=== PATIENT | female | born 1995 | race Caucasian/White ===

== ENCOUNTER → 2016-11-03 | Outpatient (CLI) | payer MEDICARE, MEDICAID ==
[~2016-11-03] MED LIST: ACHD5005 PO; AMOX-355 PO; AZTH250C; CEFP500T4 PO; CEPH500C PO; CEPH500T PO; CETI10CA PO; CHL25T; CLN.1T; CLON1TAB36; D-ME473S42; DEPAKOTE 125 MG; DIASTAT; DIAZ2.5K RC; DIVA125C3; DIVA125T2 PO; DIVA250T2 PO; FLAX SEED OIL; FLX20C; GUAN4TAB2 PO; LACO100T2 PO; LAMO100T69; LORTAB ELIXIR; MAGN500C15 PO; MAGNESIUM; MELA1TAB11 PO; METO-354 PO; MUPI15CR11; NF-ADXR10C; NITR-65 PO; ONDAN4ODT PO; ONDN4T PO; PEGANONE; PRM25T PO; QTP25T; QUET25TA; RANI-10 PO; RSP1T; RUFI400T PO; SERT50TA; SULF-222; SULF1TAB38 PO; TERB250T10 PO; TOPI50TA37 PO; TRAZ-28 PO; TRAZ150T42 PO; TRAZ50TA67; [UNRECOGNIZED DRUG - CODE] PO
[2016-11-03 11:49] LABS: BASOPHILS % (AUTO) 0 % (0-10); EOSINOPHILS # (AUTO) 0.1 10^3/uL (0.0-0.3); EOSINOPHILS % (AUTO) 1 % (0-10); LYMPHOCYTES # (AUTO) 3.3 X 10^3 (1.0-4.0); LYMPHOCYTES % (AUTO) 26 % (12-44); MEAN CORPUSCULAR HEMOGLOBIN 29 PG (25-34); MEAN CORPUSCULAR HGB CONC 33 G/DL (32-36); MEAN CORPUSCULAR VOLUME 86 FL (80-99); MEAN PLATELET VOLUME 10.5 FL (7.4-10.4); MONOCYTES # (AUTO) 1.3 X 10^3 (0.0-1.0); MONOCYTES % (AUTO) 10 % (0-12); NEUTROPHILS # (AUTO) 7.9 X 10^3 (1.8-7.8); NEUTROPHILS % (AUTO) 62 % (42-75); PLATELET COUNT 350 10^3/uL (130-400); RED BLOOD COUNT 4.68 10^6/uL (4.35-5.85); RED CELL DISTRIBUTION WIDTH 14.1 % (10.0-14.5); WHITE BLOOD COUNT 12.7 10^3/uL (4.3-11.0)
[2016-11-03 11:51] LABS: BILIRUBIN,URINE NEGATIVE (NEGATIVE); KETONES,URINE NEGATIVE (NEGATIVE); LEUKOCYTE ESTERASE ,URINE 2+ (NEGATIVE); NITRITE,URINE NEGATIVE (NEGATIVE); PH,URINE 6 (5-9); PROTEIN,URINE 1+ (NEGATIVE); UROBILINOGEN,URINE NORMAL (NORMAL)
[2016-11-03 12:08] LABS: ALANINE AMINOTRANSFERASE 13 U/L (0-55); ALBUMIN 4.5 G/DL (3.2-4.5); ANION GAP 8 MMOL/L (5-14); ASPARTATE AMINO TRANSFERASE 12 U/L (5-34); BILIRUBIN,TOTAL 0.5 MG/DL (0.1-1.0); BLOOD UREA NITROGEN 15 MG/DL (7-18); BUN/CREATININE RATIO 15; CALCIUM 9.1 MG/DL (8.5-10.1); CARBON DIOXIDE 23 MMOL/L (21-32); CHLORIDE 109 MMOL/L (98-107); CREATININE SERUM 0.99 MG/DL (0.60-1.30); GFR ESTIMATED > 60; GLUCOSE 100 MG/DL (70-105); POTASSIUM 4.1 MMOL/L (3.6-5.0); SODIUM 140 MMOL/L (135-145); TOTAL PROTEIN 7.4 G/DL (6.4-8.2)
[2016-11-03 12:12] LABS: BAND NEUTROPHILS 2 %; BASOPHILS % (MANUAL) 0 %; EOSINOPHILS % (MANUAL) 0 %; LYMPHOCYTES % (MANUAL) 27 %; NEUTROPHILS % (MANUAL) 60 %
== END ==
LOC: LAB 11:22
PROVIDERS: ATTEND Family Medicine
DX: R30.0 Dysuria (principal); R56.9 Unspecified convulsions
CPT/HCPCS: 36415; 80053; 81000; 85007; 85027; 87088

== ENCOUNTER 2017-01-02 18:25 | Emergency (ER) | payer MEDICARE, MEDICAID ==
[~2017-01-02] VITALS: Ht 147.3 cm; Wt 68.5 kg
[2017-01-02] MEDS ORDERED: NS IV 1000 ML 1,000 ML IV ONE (18:34)
--- NOTE | 2017-01-02 18:53 | ED Neurological Problem ---
General Chief Complaint: Neurological Problems Stated Complaint: SEIZURES Nursing Triage Note: PT HAS HX OF SEIZURES. SEIZURES STARTED TUESDAY. TODAY AT 1700 HAS BEEN HAVING SEIZURES APPROX Q20 MIN. FAMILY STATES SHE HAS NOT DEVIATED FROM NORMAL MEDICATION ROUTINE. DID HAVE DIARRHEA 2 DAYS AGO AND VOMITING ON TUESDAY. Nursing Sepsis Screen: No Definite Risk Source: patient Exam Limitations: no limitations History of Present Illness Time seen by provider: 18:30 Initial Comments Here with report of seizures yesterday and today. These are partial seizures and patient has known seizure disorder. She typically has breakthrough seizures when she has illness. She did have vomiting and diarrhea last week but resolved from that. Has taken her medicines as directed and these are given to her by her mother or her aunt. No vomiting or diarrhea today. Timing/Duration: waxing and waning Severity: moderate Associated Symptoms: No fever/chills, No nausea/vomiting, seizures Allergies and Home Medications Allergies Coded Allergies: haloperidol (Unverified Allergy, Mild, 07/16/16) lorazepam (Verified Allergy, Unknown, 07/16/16) Home Medications Cephalexin 500 Mg Tablet, 500 MG PO TID, #18 Ref 0 Prescribed by: WESTON HERNANDEZ on 07/17/16 0006 Diazepam 2.5 Mg Kit, 2.5 MG RC [id number] PRN for SEIZURE ACTIVITY, #2 Prescribed by: CHARLETTE FLOWERS on 03/26/16 1455 Guanfacine HCl 4 Mg Tab.er.24h, 4 MG PO DAILY, (Reported) Lacosamide 100 Mg Tablet, 300 MG PO BID, Ref 0 (Reported) Magnesium Oxide 500 Mg Capsule, 500 MG PO UD, (Reported) take 1/2 tabe in the morning am and 2 in hs Pyridoxine/Melatonin 1 Tab Tablet, 15 MG PO HS, (Reported) Ranitidine Hcl 150 Mg Tablet, 75 MG PO BID, (Reported) Terbinafine HCl 250 Mg Tablet, 250 MG PO DAILY, #14 Prescribed by: ELIGIO FATIMA on 02/11/16 0053 Topiramate 50 Mg Tablet, 25 MG PO BID, (Reported) Trazodone HCl 50 Mg Tablet, 200 MG PO HS, (Reported) Constitutional: see HPI, No chills, No fever Eyes: No Symptoms Reported Ears, Nose, Mouth, Throat: no symptoms reported Respiratory: no symptoms reported, No cough, No short of breath Cardiovascular: no symptoms reported Gastrointestinal: see HPI, No abdominal pain, No diarrhea, No nausea, No vomiting Genitourinary: no symptoms reported Psychiatric/Neurological: See HPI, [place] Seizures All Other Systems Reviewed Negative Unless Noted: Yes Past Ctpqctn-Jkzsgm-Juzeuw Hx Patient Social History Alcohol Use: Denies Use Recreational Drug Use: No Smoking Status: Never a Smoker Recent Foreign Travel: No Contact w/Someone Who Travel: No Recent Infectious Disease Expo: No Recent Hopitalizations: Yes (MULTIPLE FOR SEIZURE DISORDER) Immunizations Up To Date Tetanus Booster (TDap): Less than 5yrs PED Vaccines UTD: Yes Date of Influenza Vaccine: May 28, 2016 Surgeries HX Surgeries: Yes (STIMULATOR IMPLANT,THEN DC'D,TEETH EXTRACTED, frontal lobectomy) Respiratory Hx Respiratory Disorders: No Cardiovascular Hx Cardiac Disorders: Yes (MILD MURMUR) Cardiac Disorders: Heart Murmur Neurological Hx Neurological Disorders: Yes (CP 2 DEFECT FRONT LOBE REMOVED) Neurological Disorders: Cerebral Palsy, Seizure Disorder Reproductive System Hx Reproductive Disorders: No Genitourinary Hx Genitourinary Disorders: No Gastrointestinal Hx Gastrointestinal Disorders: No Musculoskeletal Hx Musculoskeletal Disorders: Yes (CEREBRAL PALSY) Endocrine Hx Endocrine Disorders: No HEENT HX ENT Disorders: Yes (6 TEETH REMOVED 11/23/07) Cancer Hx Cancer: No Psychosocial Hx Psychiatric Problems: Yes (AUTISTIC) Behavioral Health Disorders: Bipolar Integumentary HX Skin/Integumentary Disorder: No Blood Transfusions Hx Blood Disorders: No Reviewed Nursing Assessment Reviewed/Agree w Nursing PMH: Yes Family Medical History Significant Family History: No Pertinent Family Hx Physical Exam Vital Signs Vital Sign - Last 12Hours 01/02/17 18:36 Temp 98.6 Pulse 89 Resp 17 B/P (MAP) 147/88 Pulse Ox 96 O2 Delivery Room Air Capillary Refill : Less Than 3 Seconds General Appearance: WD/WN, no apparent distress HEENT: PERRL/EOMI, pharynx normal, other (subconjunctival hematoma to the medial aspect of the right eye that is reportedly improving.) Neck: full range of motion, supple Respiratory: lungs clear, normal breath sounds Cardiovascular: regular rate, rhythm, no murmur Gastrointestinal: non tender, soft Back: normal inspection, no CVA tenderness, no vertebral tenderness Extremities: non-tender, normal inspection Neurologic/Psychiatric: alert, oriented x 3 Crainal Nerves: normal speech, PERRL Coordination/Gait: normal gait Motor/Sensory: no motor deficit, no sensory deficit Skin: normal color, warm/dry Progress/Results/Core Measures Results/Orders Lab Results Laboratory Tests Test 01/02/17 18:45 01/02/17 18:50 Range/Units White Blood Count 14.8 H 4.3-11.0 10^3/uL Red Blood Count 4.69 4.35-5.85 10^6/uL Hemoglobin 13.1 11.5-16.0 G/DL Hematocrit 41 35-52 % Mean Corpuscular Volume 86 80-99 FL Mean Corpuscular Hemoglobin 28 25-34 PG Mean Corpuscular Hemoglobin Concent 32 32-36 G/DL Red Cell Distribution Width 15.2 H 10.0-14.5 % Platelet Count 419 H 130-400 10^3/uL Mean Platelet Volume 10.5 H 7.4-10.4 FL Neutrophils (%) (Auto) 63 42-75 % Lymphocytes (%) (Auto) 27 12-44 % Monocytes (%) (Auto) 9 0-12 % Eosinophils (%) (Auto) 1 0-10 % Basophils (%) (Auto) 0 0-10 % Neutrophils # (Auto) 9.2 H 1.8-7.8 X 10^3 Lymphocytes # (Auto) 3.9 1.0-4.0 X 10^3 Monocytes # (Auto) 1.4 H 0.0-1.0 X 10^3 Eosinophils # (Auto) 0.2 0.0-0.3 10^3/uL Basophils # (Auto) 0.1 0.0-0.1 10^3/uL Neutrophils % (Manual) 55 % Lymphocytes % (Manual) 40 % Monocytes % (Manual) 4 % Eosinophils % (Manual) 0 % Basophils % (Manual) 1 % Band Neutrophils 0 % Blood Morphology Comment NORMAL Sodium Level 142 135-145 MMOL/L Potassium Level 3.9 3.6-5.0 MMOL/L Chloride Level 108 H 98-107 MMOL/L Carbon Dioxide Level 22 21-32 MMOL/L Anion Gap 12 5-14 MMOL/L Blood Urea Nitrogen 17 7-18 MG/DL Creatinine 0.83 0.60-1.30 MG/DL Estimat Glomerular Filtration Rate > 60 BUN/Creatinine Ratio 20 Glucose Level 100 70-105 MG/DL Calcium Level 9.8 8.5-10.1 MG/DL Magnesium Level 2.1 1.8-2.4 MG/DL Total Bilirubin 0.3 0.1-1.0 MG/DL Aspartate Amino Transf (AST/SGOT) 13 5-34 U/L Alanine Aminotransferase (ALT/SGPT) 14 0-55 U/L Alkaline Phosphatase 70 40-136 U/L Total Protein 7.5 6.4-8.2 G/DL Albumin 4.5 3.2-4.5 G/DL Thyroid Stimulating Hormone (TSH) 0.92 0.35-4.94 UIU/ML Urine Color YELLOW Urine Clarity CLEAR Urine pH 7 5-9 Urine Specific Mason 1.010 L 1.016-1.022 Urine Protein NEGATIVE NEGATIVE Urine Glucose (UA) NEGATIVE NEGATIVE Urine Ketones NEGATIVE NEGATIVE Urine Nitrite NEGATIVE NEGATIVE Urine Bilirubin NEGATIVE NEGATIVE Urine Urobilinogen NORMAL NORMAL MG/DL Urine Leukocyte Esterase NEGATIVE NEGATIVE Urine RBC (Auto) NEGATIVE NEGATIVE Urine RBC NONE /HPF Urine WBC NONE /HPF Urine Squamous Epithelial Cells 10-25 H /HPF Urine Crystals NONE /LPF Urine Bacteria NONE /HPF Urine Casts NONE /LPF Urine Mucus NEGATIVE /LPF Urine Culture Indicated NO My Orders Orders - WESTON HERNANDEZ MD Cbc With Automated Diff (01/02/17 18:34) Comprehensive Metabolic Panel (01/02/17 18:34) Magnesium (01/02/17 18:34) Thyroid Stimulating Hormone (01/02/17 18:34) Ua Culture If Indicated (01/02/17 18:34) Saline Lock/Iv-Start (01/02/17 18:34) Ns Iv 1000 Ml (Sodium Chloride 0.9%) (01/02/17 18:34) Manual Differential (01/02/17 18:45) Chest Pa/Lat (2 View) (01/02/17 20:07) Medications Given in ED Current Medications Medications Dose Ordered Sig/Ketan Route Start Time Stop Time Status Last Admin Dose Admin Sodium Chloride 1,000 ml @ 0 mls/hr Q0M ONCE IV 01/02/17 18:34 01/02/17 18:36 DC 01/02/17 18:55 999 MLS/HR Vital Signs/I&O Vital Sign - Last 12Hours 01/02/17 18:36 Temp 98.6 Pulse 89 Resp 17 B/P (MAP) 147/88 Pulse Ox 96 O2 Delivery Room Air Blood Pressure Mean: 107 Progress Note : Progress Note Seen and evaluated. IV, labs and UA ordered. Normal saline 1 L bolus. Monitor patient. 2049: Chest x-ray was added and this was negative. Labs reviewed. Patient has not had any seizure-like activity here. Discharged home with return precautions. Mother verbalize understanding instructions and agreement with plan. Diagnostic Imaging Diagonstic Imaging: Xray Plain Films/CT/US/NM/MRI: chest Comments VIA [facility], [facility]. [place], [place] NAME: KAMALJIT FUCHS [facility] REC#: [id number] PT STATUS: REG ER : 1995 PHYSICIAN: WESTON HERNANDEZ MD ADMIT DATE: 01/02/17/ER Draft Date of Exam:01/02/17 CHEST PA/LAT (2 VIEW) Indication: Recent seizure activity. Discussion: Two views of the chest were obtained, comparison 07/16/2016. Normal heart size. No focal consolidation, pleural fluid or pneumothorax. No acute osseous abnormality identified. Impression: Negative chest. Dictated on workstation # [id number] Dict: 01/02/172033 Trans: 01/02/172035 [facility] [id number] Interpreted by: MARYCARMEN SHANKS MD Electronically signed by: Departure Impression Impression: Primary Impression: Seizure disorder Disposition: 01 HOME, SELF-CARE Condition: Improved Departure-Patient Inst. Decision time for Depature: 20:53 Referrals: PAPA LANG MD (PCP/Family) Primary Care Physician Patient Instructions: Seizures, Adult (DC) Add. Discharge Instructions: All discharge instructions reviewed with patient and/or family. Voiced understanding. Continue home medications as directed. Follow-up with your doctor tomorrow. Call her neurologist tomorrow for further instructions. Return for worse pain, fever, vomiting, weakness, breathing problems, persistent seizures or other concerns as needed. Drink plenty of fluids and eat a normal diet. Work/School Note: Family Work Note Patient Received Medical Care In the Emergency Department On: January 02, 2017 Patient Will Be Able to Return to Work/School On: January 03, 2017 Patient Restrictions: No restrictions WESTON HERNANDEZ MD January 02, 2017 18:53
[2017-01-02 19:02] LABS: BASOPHILS # (AUTO) 0.1 10^3/uL (0.0-0.1); BASOPHILS % (AUTO) 0 % (0-10); EOSINOPHILS # (AUTO) 0.2 10^3/uL (0.0-0.3); EOSINOPHILS % (AUTO) 1 % (0-10); LYMPHOCYTES # (AUTO) 3.9 X 10^3 (1.0-4.0); LYMPHOCYTES % (AUTO) 27 % (12-44); MEAN CORPUSCULAR HEMOGLOBIN 28 PG (25-34); MEAN CORPUSCULAR HGB CONC 32 G/DL (32-36); MEAN CORPUSCULAR VOLUME 86 FL (80-99); MEAN PLATELET VOLUME 10.5 FL (7.4-10.4); MONOCYTES # (AUTO) 1.4 X 10^3 (0.0-1.0); MONOCYTES % (AUTO) 9 % (0-12); NEUTROPHILS # (AUTO) 9.2 X 10^3 (1.8-7.8); NEUTROPHILS % (AUTO) 63 % (42-75); PLATELET COUNT 419 10^3/uL (130-400); RED BLOOD COUNT 4.69 10^6/uL (4.35-5.85); RED CELL DISTRIBUTION WIDTH 15.2 % (10.0-14.5); WHITE BLOOD COUNT 14.8 10^3/uL (4.3-11.0)
[2017-01-02 19:02] LABS: BILIRUBIN,URINE NEGATIVE (NEGATIVE); KETONES,URINE NEGATIVE (NEGATIVE); LEUKOCYTE ESTERASE ,URINE NEGATIVE (NEGATIVE); NITRITE,URINE NEGATIVE (NEGATIVE); PH,URINE 7 (5-9); PROTEIN,URINE NEGATIVE (NEGATIVE); UROBILINOGEN,URINE NORMAL (NORMAL)
[2017-01-02 19:20] LABS: ALANINE AMINOTRANSFERASE 14 U/L (0-55); ALBUMIN 4.5 G/DL (3.2-4.5); ANION GAP 12 MMOL/L (5-14); ASPARTATE AMINO TRANSFERASE 13 U/L (5-34); BILIRUBIN,TOTAL 0.3 MG/DL (0.1-1.0); BLOOD UREA NITROGEN 17 MG/DL (7-18); BUN/CREATININE RATIO 20; CALCIUM 9.8 MG/DL (8.5-10.1); CARBON DIOXIDE 22 MMOL/L (21-32); CHLORIDE 108 MMOL/L (98-107); CREATININE SERUM 0.83 MG/DL (0.60-1.30); GFR ESTIMATED > 60; GLUCOSE 100 MG/DL (70-105); MAGNESIUM 2.1 MG/DL (1.8-2.4); POTASSIUM 3.9 MMOL/L (3.6-5.0); SODIUM 142 MMOL/L (135-145); TOTAL PROTEIN 7.5 G/DL (6.4-8.2)
[2017-01-02 19:38] LABS: BAND NEUTROPHILS 0 %; BASOPHILS % (MANUAL) 1 %; EOSINOPHILS % (MANUAL) 0 %; LYMPHOCYTES % (MANUAL) 40 %; NEUTROPHILS % (MANUAL) 55 %
[2017-01-02 19:40] LABS: THYROID STIMULATING HORMONE 0.92 UIU/ML (0.35-4.94)
--- NOTE | 2017-01-02 20:36 | Diagnostic Imaging Report ---
Indication: Recent seizure activity. Discussion: Two views of the chest were obtained, comparison 07/16/2016. Normal heart size. No focal consolidation, pleural fluid or pneumothorax. No acute osseous abnormality identified. Impression: Negative chest. Dictated by: Dictated on workstation # [id number]
[2017-01-02 21:02] VITALS: BP 147/88
== END 2017-01-02 20:59 | disposition home or self-care (01) ==
LOC: EDUNIT# 18:25 → ER 18:26
DX: G40.909 Epilepsy, unspecified, not intractable, without status epilepticus (principal); G80.9 Cerebral palsy, unspecified; Z79.899 Other long term (current) drug therapy
CPT/HCPCS: 36415; 71020; 80053; 81000; 83735; 84443; 85007; 85027; 96360; 96361

== ENCOUNTER → 2017-06-02 | Outpatient (CLI) | payer MEDICARE, MEDICAID ==
--- NOTE | 2017-06-02 11:17 | Diagnostic Imaging Report ---
PROCEDURE: US Gallbladder. TECHNIQUE: Multiple real-time grayscale images were obtained over the right upper quadrant in various projections. INDICATION: Right upper quadrant pain. FINDINGS: The pancreas is largely obscured. The liver is fairly homogeneous with no focal lesion. There is hepatopetal flow in the portal vein. The CBD is obscured by bowel gas. The gallbladder demonstrates no stones or wall thickening. No pericholecystic fluid. Sonographic Burgess's sign is not assessed. The right kidney is 10 cm in length with no hydronephrosis or focal lesion. No fluid collection is seen in the upper right abdomen. IMPRESSION: No gallstones or evidence of cholecystitis. Dictated by: Dictated on workstation # [id number]
== END ==
LOC: RAD 07:50
PROVIDERS: ATTEND Family Medicine
DX: R10.11 Right upper quadrant pain (principal)
CPT/HCPCS: 76705

== ENCOUNTER 2017-11-13 11:28 | Emergency (ER) | payer MEDICARE, MEDICAID ==
[~2017-11-13] VITALS: Ht 157.5 cm; Wt 69.4 kg
[~2017-11-13 11:28] MED LIST changes: -TERB250T10 PO; +TERB250T16 PO
--- OUTSIDE RECORDS SUMMARY | 2017-11-13 11:58 | XMS REPORT | CCD ---
Author Author Auto Generated Organization [facility] Address Unknown Phone Unavailable Care Team Providers Care Search Marketing Analyst Name Role Phone Ld Argueta CP [phone] Marce Martin RP [phone] Ambrosio ZIEGLER, Kristyn Staton PP [phone] Allergies, Adverse Reactions, Alerts Substance Reaction Status Ativan Hyperactivity Active Prolonged Seizures felbamate Rashes Active Haldol FACIAL SWELLING Active Lamictal rash Active Tegretol Rashes Active Problem List Condition Effective Dates Status Intermittent explosive disorder Active Mental retardation Active Medications Medication Instructions Start Date End Date Status Intuniv 4 mg oral 4 mg=1 tablet, PO, qAM, # 30 04/08/2014 Ordered tablet, extended tablet, Refill(s) 6, Pharmacy: [facility] #[id number] ranitidine 150 mg 150 mg=1 tablet, PO, BID, # 60 05/07/2013 Ordered oral tablet tablet, Refill(s) 11, Pharmacy: [facility] #[id number] traZODone 50 mg oral See Instructions, 4 tablets at HS 10/31/2013 Ordered tablet (200mg), # 120 tablet, Refill(s) 11, Pharmacy: [facility] #[id number] 4 tablets at HS (200mg) Vimpat 100 mg oral 200 mg=2 tablet, PO, BID, # 120 09/12/2013 Ordered tablet tablet, Refill(s) 6 clobazam 10 mg oral See Instructions, Take 1/2 tab PO 09/12/2013 Ordered tablet BID for one week then 1 tab PO BID for one week then 1.5 tab PO BID for one week then 2 tab PO BID thereafter, # 120 tablet, Refill(s) 6 Take 1/2 tab PO BID for one week then 1 tab PO BID for one week then 1.5 tab PO BID for one week then 2 tab PO BID thereafter melatonin *NF* 10 mg, PO, BID 09/09/2010 Ordered magnesium oxide 400 mg, Refill(s) 0 12/27/2011 Ordered Vital Signs Most recent to oldest [Reference Range]: 1 Heart Rate [45-120 bpm] 71 bpm (04/08/2014 10:32:00) Systolic Blood Pressure Cuff Monitored [90-140 mmHg] 123 mmHg (04/08/2014 10:32:00) Diastolic Blood Pressure Cuff Monitored [45-90 mmHg] 65 mmHg (04/08/2014 10:32:00) Current Weight 77.3 kg (04/08/2014 10:32:00) Height/Length 148.2 cm (04/08/2014 10:32:00)
--- OUTSIDE RECORDS SUMMARY | 2017-11-13 11:58 | XMS REPORT | CCD ---
Author Author Auto Generated Organization [facility] Address Unknown Phone Unavailable Care Team Providers Care Bingo Usher Name Role Phone Vinita Sánchez RP [phone] Kristyn Valente MD PP [phone] Khushi Gallo CP Unavailable Allergies, Adverse Reactions, Alerts Substance Reaction Status Ativan Hyperactivity Active Prolonged Seizures felbamate Rashes Active Haldol FACIAL SWELLING Active Lamictal rash Active Tegretol Rashes Active Problem List Condition Effective Dates Status Intermittent Explosive Disorder Active Mental retardation Active Medications Medication Instructions Start Date End Date Status traZODone 100 mg 200 mg=2 tablet, PO, HS (bedtime), 05/07/2013 Ordered oral tablet If pill is too large, please give the 50mg pills taking 4 at HS., # 60 tablet, Refill(s) 11, Pharmacy: [facility] #[id number] If pill is too large, please give the 50mg pills taking 4 at HS. Intuniv 4 mg oral 4 mg=1 tablet, PO, qDay, # 30 05/07/2013 Ordered tablet, extended tablet, Refill(s) 11, EH, release Pharmacy: [facility] #[id number] ranitidine 150 mg 150 mg=1 tablet, PO, BID, # 60 05/07/2013 Ordered oral tablet tablet, Refill(s) 11, Pharmacy: [facility] #[id number] melatonin *NF* 10 mg, PO, BID 09/09/2010 Ordered Vimpat 100 mg oral See Instructions, 150mg AM, 200mg 03/06/2013 Ordered tablet PM, Supply 1 month(s), Refill(s) 6 150mg AM, 200mg PM magnesium oxide 400 mg, Refill(s) 0 12/27/2011 Ordered Vital Signs Most recent to oldest [Reference Range]: 1 Total Pain Calculation 0 (03/27/2013 14:00:00)
--- OUTSIDE RECORDS SUMMARY | 2017-11-13 11:58 | XMS REPORT | CCD ---
Author Author Auto Generated Organization [facility] Address Unknown Phone Unavailable Care Team Providers Care Social Sciences Research Scientist Name Role Phone Ld Argueta CP [phone] Jacques Bradshaw RP [phone] Kristyn Valente MD PP [phone] Allergies, Adverse Reactions, Alerts Substance Reaction Status Ativan Hyperactivity Active Prolonged Seizures felbamate Rashes Active Haldol FACIAL SWELLING Active Lamictal rash Active Tegretol Rashes Active Problem List Condition Effective Dates Status Intermittent Explosive Disorder Active Mental retardation Active Medications Medication Instructions Start Date End Date Status ranitidine 150 mg 150 mg=1 tablet, PO, BID, # 60 05/07/2013 Ordered oral tablet tablet, Refill(s) 11, Pharmacy: [facility] #[id number] traZODone 50 mg oral See Instructions, 4 tablets at HS 10/31/2013 Ordered tablet (200mg), # 120 tablet, Refill(s) 11, Pharmacy: [facility] #[id number] 4 tablets at HS (200mg) Vimpat 100 [...] *NF* 10 mg, PO, BID 09/09/2010 Ordered Intuniv 4 mg oral 4 mg=1 tablet, PO, qAM, # 30 10/31/2013 Ordered tablet, extended tablet, Refill(s) 9 release magnesium oxide 400 mg, Refill(s) 0 12/27/2011 Ordered Vital Signs Most recent to oldest [Reference Range]: 1 Heart Rate 84 bpm (10/31/2013 10:07:02) Heart Rate [45-120 bpm] 84 bpm (10/31/2013 10:07:00) Systolic Blood Pressure Cuff Monitored 132 mmHg (10/31/2013 10:07:02) Systolic Blood Pressure Cuff Monitored [90-140 mmHg] 132 mmHg (10/31/2013 10:07:00) Diastolic Blood Pressure Cuff Monitored 71 mmHg (10/31/2013 10:07:02) Diastolic Blood Pressure Cuff Monitored [45-90 mmHg] 71 mmHg (10/31/2013 10:07:00)
--- OUTSIDE RECORDS SUMMARY | 2017-11-13 11:58 | XMS REPORT | CCD ---
Author Author Auto Generated Organization [facility] Address Unknown Phone Unavailable Care Team Providers Care Automotive Service Cashier Name Role Phone Ld Argueta CP [phone] No, Referring RP Unavailable Kristyn Valente MD PP [phone] Allergies, Adverse Reactions, Alerts Substance Reaction Status Ativan Hyperactivity Active Prolonged Seizures felbamate Rashes Active Haldol FACIAL SWELLING Active Lamictal rash Active Tegretol Rashes Active Problem List Condition Effective Dates Status Intellectual disability Active Intermittent explosive disorder Active Irritability and anger Active Medications Medication Instructions Start Date End Date Status traZODone 50 mg oral See Instructions, TAKE FOUR TABLETS 11/18/2014 Ordered tablet BY MOUTH EVERY NIGHT AT BEDTIME, # 120 tablet, Refill(s) 10, eRx: [facility] #[id number] TAKE FOUR TABLETS BY MOUTH EVERY NIGHT AT BEDTIME clobazam 10 mg oral See Instructions, Take [...] week then 2 tab PO BID thereafter Intuniv 4 mg oral 4 mg=1 tablet, PO, daily, # 30 05/21/2015 Ordered tablet, extended tablet, Refill(s) 7, Pharmacy: release [facility] #[id number] melatonin *NF* 10 mg, PO, HS (bedtime), Constant 09/09/2010 Ordered Indicator Vimpat 100 mg oral See Instructions, 3 tablet by mouth 11/20/2014 Ordered tablet bid, Refill(s) 0 3 tablet by mouth bid ranitidine 150 mg See Instructions, 0.5 tablet PO 05/16/2014 Ordered oral tablet BID, # 30 tablet, Refill(s) 11, Pharmacy: [facility] #[id number] 0.5 tablet PO BID magnesium oxide 400 mg, Refill(s) 0 12/27/2011 Ordered Vital Signs Most recent to oldest [Reference Range]: 1 Heart Rate [45-120 bpm] 72 bpm (05/21/2015 10:48:00) Most recent to oldest [Reference Range]: 1 Blood Pressure Cuff [90-140/45-90 mmHg] <content ID='[id number]'>119</ content>/<content ID='[id number]'>64</content> mmHg (05/21/2015 10:48:00) Most recent to oldest [Reference Range]: 1 Current Weight 77.8 kg (05/21/2015 10:48:00) Most recent to oldest [Reference Range]: 1 Height/Length 148.0 cm (05/21/2015 10:48:00)
--- OUTSIDE RECORDS SUMMARY | 2017-11-13 11:58 | XMS REPORT | CCD ---
Author Author Auto Generated Organization [facility] Address Unknown Phone Unavailable Care Team Providers Care Carbonator Name Role Phone Ld Argueta CP [phone] No, Referring RP Unavailable Kristyn Valente MD PP [phone] Allergies, Adverse Reactions, Alerts Substance Reaction Status Ativan Hyperactivity Active Prolonged Seizures felbamate Rashes Active Haldol FACIAL SWELLING Active Lamictal rash Active Tegretol Rashes Active Problem List Condition Effective Dates Status Intellectual disability Active Intermittent explosive disorder Active Medications Medication Instructions Start Date End Date Status traZODone 50 mg oral See Instructions, TAKE FOUR TABLETS 11/18/2014 Ordered tablet BY MOUTH EVERY NIGHT AT BEDTIME, # 120 tablet, Refill(s) 10, eRx: [facility] #[id number] TAKE FOUR TABLETS BY MOUTH EVERY NIGHT [...] BID thereafter melatonin *NF* 10 mg, PO, HS (bedtime), Constant 09/09/2010 Ordered Indicator Vimpat 100 mg oral See Instructions, 3 tablet by mouth 11/20/2014 Ordered tablet bid, Refill(s) 0 3 tablet by mouth bid Intuniv 4 mg oral 4 mg=1 tablet, PO, qAM, # 30 11/12/2014 Ordered tablet, extended tablet, Refill(s) 3, Pharmacy: release [facility] #[id number] ranitidine 150 mg See Instructions, 0.5 tablet PO 05/16/2014 Ordered oral tablet BID, # 30 tablet, Refill(s) 11, Pharmacy: [facility] #[id number] 0.5 tablet PO BID magnesium oxide 400 mg, Refill(s) 0 12/27/2011 Ordered Vital Signs Most recent to oldest [Reference Range]: 1 Heart Rate [45-120 bpm] 84 bpm (11/20/2014 10:29:00) Most recent to oldest [Reference Range]: 1 Blood Pressure Cuff [90-140/45-90 mmHg] <content ID='[id number]'>112</ content>/<content ID='[id number]'>78</content> mmHg (11/20/2014 10:29:00) Most recent to oldest [Reference Range]: 1 Current Weight 77.2 kg (11/20/2014 10:29:00) Most recent to oldest [Reference Range]: 1 Height/Length 148.5 cm (11/20/2014 10:29:00)
--- OUTSIDE RECORDS SUMMARY | 2017-11-13 11:58 | XMS REPORT | Continuity of Care Document ---
Author Author [employer] Organization [facility] Address Unknown Phone Unavailable Care Team Providers Care Accounting Instructor Name Role Phone [employer] Unavailable Unavailable Problems Problem Status Onset Date Classification Date Reported Comments Source Intermittent explosive disorder 07/08/2017 Diagnosis [facility] Unspecified intellectual disabilities 07/08/2017 Diagnosis 07/09/2017 [facility] Epilepsy, unspecified, not intractable, without status epilepticus 07/08/2017 Diagnosis 07/09/2017 [facility] Intermittent Explosive Disorder Active Problem 2012 [facility] Mental retardation Active Problem 05/08/2013 [facility] Intellectual functioning disability (finding) Active Problem 07/09/2017 [facility] Intermittent explosive disorder (disorder) Active Problem 07/09/2017 [facility] Irritability and anger (finding) Active Problem 2016 [facility] Epilepsy (disorder) Active Problem 07/09/2017 [facility] Intermittent explosive disorder (disorder) Active Problem 11/01/2013 [facility] Other specified anomalies Active Problem 11/01/2013 [facility] Mental retardation (disorder) Active Problem 04/09/2014 [facility] Medications Medication Details Route Status Patient Instructions Ordering Provider Order Date Source traZODone 100 mg oral tablet 200 mg=2 tablet, PO, HS ( bedtime), If pill is too large, please give the 50mg pills taking 4 at HS., # 60 tablet, Refill(s) 11, Pharmacy: [facility] #[id number] If pill is too large, please give the 50mg pills taking 4 at HS. Active [facility] Intuniv 4 mg oral tablet, extended release 4 mg=1 tablet, PO, daily, x 30 day(s), # 30 tablet, Refill(s) 11, Pharmacy: [facility] #[id number] Inactive [facility] ranitidine 150 mg oral tablet 150 mg=1 tablet, PO, BID , # 60 tablet, Refill(s) 1, Pharmacy: [facility] #[id number] [facility] melatonin *NF* 10 mg, PO, HS (bedtime), Takes 1 to 1.5 tablets daily, Constant Indicator Takes 1 to 1.5 tablets daily [facility] Vimpat 100 mg oral tablet See Instructions, 2.5 tablets BID, Refill(s) 0 2.5 tablets BID [facility] magnesium oxide 400 mg, Refill(s) 0 [facility] clobazam 10 mg oral tablet See Instructions, Take 1/2 tab PO BID for one [...] week then 2 tab PO BID thereafter Active [facility] traZODone 50 mg oral tablet See Instructions, TAKE FOUR TABLETS BY MOUTH EVERY NIGHT AT BEDTIME, # 120 tablet, Refill(s) 11, Pharmacy: [facility] #[id number] TAKE FOUR TABLETS BY MOUTH EVERY NIGHT AT BEDTIME Active [facility] Topamax 25 mg oral tablet 25 mg=1 tablet, PO, BID, # 60 tablet, Refill(s) 0 [facility] raNITIdine 150 mg oral tablet 150 mg=1 tablet, PO, BID , # 60 tablet, Refill(s) 1, Pharmacy: [facility] #[id number] [facility] Trazodone Hydrochloride 100 MG Oral Tablet See Instructions, 2.5 tablets PO HS (bedtime), Dispense=75 tablet, Refill(s) 3, Pharmacy: [facility] #[id number] [facility] gabapentin 300 MG Oral Capsule qhs, Refill(s) 0 [facility] 24 HR Guanfacine 4 MG Extended Release Tablet [Intuniv] 4 mg=1 tablet, PO, daily, x 30 day(s), # 30 tablet, Refill(s) 11, Pharmacy: [facility] #[id number] [facility] Melatonin 10 mg, PO, HS (bedtime), Takes 1 to 1.5 tablets daily, Constant Indicator [facility] lacosamide 100 MG Oral Tablet [Vimpat] See Instructions, 2.5 tablets BID, Refill(s) 0 [facility] topiramate 25 MG Oral Tablet [Topamax] 25 mg=1 tablet, PO, BID, # 60 tablet, Refill(s) 0 [facility] Magnesium Oxide 400 mg, Refill(s) 0 [facility] Ranitidine 150 MG Oral Tablet See Instructions, 0.5 tablet BID, Dispense=30 tablet, Refill(s) 4, Pharmacy: [facility] #[id number] [facility] Allergies, Adverse Reactions, Alerts Substance Category Reaction Severity Reaction type Status Date Reported Comments Source Ativan propensity to adverse reactions to drug Hyperactivity, Prolonged Seizures Adverse Reaction Active [facility] felbamate drug allergy Rashes Allergy Active [facility] Haldol drug allergy FACIAL SWELLING Allergy Active [facility] Lamictal drug allergy rash Stop Substance: Moderate Allergy Active [facility] Tegretol drug allergy Rashes Allergy Active [facility] lorazepam propensity to adverse reactions to drug Hyperactivity, Prolonged Seizures Adverse Reaction Active [facility] haloperidol drug allergy FACIAL SWELLING Allergy Active [facility] lamotrigine drug allergy rash Stop Substance: Moderate Allergy Active [facility] carbamazepine drug allergy Rashes Allergy Active [facility] felbamate Assertion Rashes Drug allergy [facility] lamotrigine Assertion rash Stop Substance: Moderate Drug allergy [facility] Carbamazepine Assertion Rashes Drug allergy [facility] Lorazepam Assertion Prolonged Seizures, Hyperactivity Propensity to adverse reactions to drug [facility] Haloperidol Assertion FACIAL SWELLING Drug allergy [facility] Immunizations Results Vital Signs Vital Sign Value Date Comments Source Height/Length 149 cm 2016 [facility] Current Weight 71.5 kg 2016 [facility] Systolic Blood Pressure Cuff Monitored 132 mm[Hg] 07/08/2017 [facility] Diastolic Blood Pressure Cuff Monitored 71 mm[Hg] 07/08/2017 [facility] Heart Rate 79 bpm 07/08/2017 [facility] Current Weight 69.6 kg 2016 [facility] Systolic Blood Pressure Cuff Monitored <content ID=' [id number]'>121</content>/<content ID='[id number]'>66</content> mm[Hg ] 02/08/2017 [facility] Heart Rate 61 bpm 02/08/2017 [facility] Respiratory Rate 18 BR/min [facility] Systolic Blood Pressure Cuff Monitored <content ID=' [id number]'>134</content>/<content ID='[id number]'>61</content> mm[Hg ] 09/07/2016 [facility] Respiratory Rate 18 BR/min [facility] Heart Rate 92 bpm 09/07/2016 [facility] Current Weight 71.2 kg 2016 [facility] Height/Length 148.6 cm 2016 [facility] Heart Rate 68 bpm 04/05/2016 [facility] Systolic Blood Pressure Cuff Monitored <content ID=' [id number]'>122</content>/<content ID='[id number]'>66</content> mm[Hg ] 04/05/2016 [facility] Current Weight 69.7 kg 2015 [facility] Height/Length 148.7 cm 2015 [facility] Current Weight 79.5 kg 2015 [facility] Systolic Blood Pressure Cuff Monitored <content ID=' [id number]'>122</content>/<content ID='[id number]'>68</content> mm[Hg ] 11/04/2015 [facility] Heart Rate 77 bpm 11/04/2015 [facility] Height/Length 148.1 cm 2015 [facility] Current Weight 77.8 kg 2014 [facility] Heart Rate 72 bpm 05/21/2015 [facility] Height/Length 148.0 cm 2014 [facility] Systolic Blood Pressure Cuff Monitored <content ID=' [id number]'>119</content>/<content ID='[id number]'>64</content> mm[Hg ] 05/21/2015 [facility] Systolic Blood Pressure Cuff Monitored <content ID=' [id number]'>112</content>/<content ID='[id number]'>78</content> mm[Hg ] 11/20/2014 [facility] Current Weight 77.2 kg 2014 [facility] Heart Rate 84 bpm 11/20/2014 [facility] Height/Length 148.5 cm 2014 [facility] Diastolic Blood Pressure Cuff Monitored 65 mm[Hg] 04/08/2014 [facility] Systolic Blood Pressure Cuff Monitored 123 mm[Hg] 04/08/2014 [facility] Heart Rate 71 bpm 04/08/2014 [facility] Current Weight 77.3 kg 2013 [facility] Height/Length 148.2 cm 2013 [facility] Systolic Blood Pressure Cuff Monitored 132 mm[Hg] 10/31/2013 [facility] Diastolic Blood Pressure Cuff Monitored 71 mm[Hg] 10/31/2013 [facility] Heart Rate 84 bpm 10/31/2013 [facility] Systolic Blood Pressure Cuff Monitored 132 mm[Hg] 10/31/2013 [facility] Diastolic Blood Pressure Cuff Monitored 71 mm[Hg] 10/31/2013 [facility] Heart Rate 84 bpm 10/31/2013 [facility] Systolic Blood Pressure Cuff Monitored 127 mm[Hg] 09/12/2013 [facility] Heart Rate 68 bpm 09/12/2013 [facility] Diastolic Blood Pressure Cuff Monitored 59 mm[Hg] 09/12/2013 [facility] Systolic Blood Pressure Cuff Monitored 127 mm[Hg] 09/12/2013 [facility] Diastolic Blood Pressure Cuff Monitored 59 mm[Hg] 09/12/2013 [facility] Heart Rate 68 bpm 09/12/2013 [facility] Mean Arterial Pressure 85 mm[Hg] 09/12/2013 [facility] Mean Arterial Pressure 79 mm[Hg] 05/07/2013 [facility] Heart Rate 77 bpm 05/07/2013 [facility] Diastolic Blood Pressure Cuff Monitored 55 mm[Hg] 05/07/2013 [facility] Systolic Blood Pressure Cuff Monitored 133 mm[Hg] 05/07/2013 [facility] Systolic Blood Pressure Cuff Monitored 133 mm[Hg] 05/07/2013 [facility] Diastolic Blood Pressure Cuff Monitored 55 mm[Hg] 05/07/2013 [facility] Heart Rate 77 bpm 05/07/2013 [facility] Total Pain Calculation 0 [facility] Encounters Location Location Details Encounter Type Encounter Number Reason For Visit Attending Provider ADM Date DC Date Status Source [facility] RCR [id number] AFO, and Hand splint Khushi Rellihan 03/27/2013 07/25/2013 Active [facility] CLI [id number] Follow Up Ld Jeanetteprashant 05/07/2013 Active [facility] CLI [id number] OPERATIONAL RISK MANAGER - EYE EXAM (SAW DR. HEATH IN 2007) Roby Heath 201205/14/2013 Active [facility] CLI [id number] Seizure Follow Up Paolamacie Princess 09/12/2013 09/12/2013 Active [facility] CLI [id number] Follow Up Ld Argueta 10/31/2013 Active [facility] CLI [id number] Ld Jeanetteprashant 04/08/20142013 Active [facility] CLI [id number] Ld Reidprashant 11/20/20142014 Active [facility] CLI [id number] Ld Reidprashant 05/21/20152014 Active [facility] CLI [id number] Ld Reidprashant 11/04/20152015 Active [facility] CLI [id number] Ld Reidprashant 04/05/20162015 Active [facility] CLI [id number] Ld Mic Kendall 09/07/20162016 Active [facility] CLI [id number] Ld Haile Kendall 02/08/20172016 Active [facility] [id number] Referring No 07/08/2017 07/09/2017 [facility] Dixon PACHECO Active [facility] Procedures Plan of Care Social History Assessment and Plan Family History Advance Directives Functional Status
--- OUTSIDE RECORDS SUMMARY | 2017-11-13 11:58 | XMS REPORT | CCD ---
Author Author Auto [employer] Organization [facility] Address Unknown Phone Unavailable Care Team Providers Care Copy Clerk Name Role Phone Ld Argueta CP [phone] Jacques Bradshaw RP [phone] Carlos Valente MD PP [phone] Allergies, Adverse Reactions, Alerts Substance Reaction Status [...] HS., # 60 tablet, Refill(s) 11, Pharmacy: [facility] #[id number] If pill is too large, please give the 50mg pills taking 4 at HS. Intuniv 4 mg oral 4 mg=1 tablet, PO, qDay, # 30 05/07/2013 Ordered tablet, extended tablet, Refill(s) 11, EH, release Pharmacy: [facility] #[id number] ranitidine 150 mg 150 mg=1 tablet, PO, BID, # 60 05/07/2013 Ordered oral tablet tablet, Refill(s) 11, Pharmacy: [facility] #[id number] melatonin *NF* 10 mg, PO, BID 09/09/2010 Ordered Vimpat 100 mg oral See Instructions, 150mg AM, 200mg 03/06/2013 Ordered tablet PM, Supply 1 month(s), Refill(s) 6 150mg AM, 200mg PM magnesium oxide 400 mg, Refill(s) 0 12/27/2011 Ordered Vital Signs Most recent to oldest [Reference Range]: 1 Heart Rate 77 bpm (05/07/2013 11:01:22) Heart Rate [50-120 bpm] 77 bpm (05/07/2013 11:01:00) Mean Arterial Pressure 79 mmHg (05/07/2013 11::22) Systolic Blood Pressure Cuff Monitored 133 mmHg (05/07/2013::22) Systolic Blood Pressure Cuff Monitored [90-135 mmHg] 133 mmHg (05/07/2013 11:01:00) Diastolic Blood Pressure Cuff Monitored 55 mmHg (05/07/2013::22) Diastolic Blood Pressure Cuff Monitored [45-90 mmHg] 55 mmHg (05/07/2013 11:01:00)
--- OUTSIDE RECORDS SUMMARY | 2017-11-13 11:59 | XMS REPORT | CCD ---
Author Author Auto Generated Organization [facility] Address Unknown Phone Unavailable Care Team Providers Care Mortgage Originator Name Role Phone Ld Argueta CP [phone] Hue Chowdary PP [phone] Marce Martin RP [phone] Allergies, Adverse Reactions, Alerts Substance Reaction Status Ativan Hyperactivity Active Prolonged Seizures felbamate Rashes Active Haldol FACIAL SWELLING Active Lamictal rash Active Tegretol Rashes Active Problem List Condition Effective Dates Status Intellectual disability Active Intermittent explosive disorder Active Irritability and anger Active Medications Medication Instructions Start Date End Date Status Intuniv 4 mg oral 4 mg=1 tablet, PO, daily, # 30 11/04/2015 Ordered tablet, extended tablet, Refill(s) 8, Pharmacy: release [facility] #[id number] clobazam 10 mg oral See Instructions, Take [...] mouth bid ranitidine 150 mg See Instructions, TAKE ONE TABLET 07/14/2015 Ordered oral tablet BY MOUTH TWICE A DAY, # 60 tablet, Refill(s) 10, eRx: [facility] #[id number] TAKE ONE TABLET BY MOUTH TWICE A DAY traZODone 50 mg oral See Instructions, TAKE FOUR TABLETS 10/20/2015 Ordered tablet BY MOUTH EVERY NIGHT AT BEDTIME, # 120 tablet, Refill(s) 9, eRx: [facility] #[id number] TAKE FOUR TABLETS BY MOUTH EVERY NIGHT AT BEDTIME magnesium oxide 400 mg, Refill(s) 0 12/27/2011 Ordered Vital Signs Most recent to oldest [Reference Range]: 1 Heart Rate [45-120 bpm] 77 bpm (11/04/2015 11:32:00) Most recent to oldest [Reference Range]: 1 Blood Pressure Cuff [90-140/45-90 mmHg] <content ID='[id number]'>122</ content>/<content ID='[id number]'>68</content> mmHg (11/04/2015 11:32:00) Most recent to oldest [Reference Range]: 1 Current Weight 79.5 kg (11/04/2015 11:32:00) Most recent to oldest [Reference Range]: 1 Height/Length 148.1 cm (11/04/2015 11:32:00)
--- OUTSIDE RECORDS SUMMARY | 2017-11-13 11:59 | XMS REPORT | Summary of Care ---
Author Author [facility] Organization [facility] Address Unknown Phone Unavailable Care Team Providers Care Binding Cutter Synthetic Cloth Name Role Phone Carlos A Family Medicine PCP Encounter Date(s): 07/08/17 - 07/08/17 [id number] [place] [address]- [phone] Discharge Diagnosis: Intermittent explosive disorder Discharge Diagnosis: Intellectual disability Discharge Diagnosis: Epilepsy Discharge Disposition: Home Attending Physician: MD Kendall, Ld Gonzalez Referring Physician: No, Referring Vital Signs Most recent to 1 oldest [Reference Range]: Heart Rate [45-120 79 bpm bpm] (07/08/17 10:50 AM) Blood Pressure 132/71 mmHg [90-140/45-90 mmHg] (07/08/17 10:50 AM) Current Weight 71.5 kg (07/08/17 10:50 AM) Height/Length 149 cm (07/08/17 10:50 AM) Problem List Condition Effective Dates Status Health Status Informant Epilepsy(Confirmed) Active Intellectual Active disability(I) Intermittent Active explosive disorder(I) Allergies, Adverse Reactions, Alerts Substance Reaction Severity Status felbamate Rashes Active Lamictal rash Stop Substance: Active Moderate Tegretol Rashes Active Ativan Prolonged Seizures Active Hyperactivity Haldol FACIAL SWELLING Active Medications gabapentin 300 mg oral capsule qhs, Refill(s) 0 Start Date: 07/08/17 Status: Ordered Intuniv 4 mg oral tablet, extended release 4 mg=1 tablet, PO, daily, x 30 day(s), # 30 tablet, Refill(s) 11, Pharmacy: [facility] #[id number] Start Date: 09/07/16 Stop Date: 09/02/17 Status: Ordered magnesium oxide 400 mg, Refill(s) 0 Start Date: 12/27/11 Status: Ordered melatonin *NF* 10 mg, PO, HS (bedtime), Takes 1 to 1.5 tablets daily, Constant Indicator Start Date: 09/09/10 Status: Ordered raNITIdine 150 mg oral tablet See Instructions, 0.5 tablet BID, Dispense=30 tablet, Refill(s) 4, Pharmacy: [facility] #[id number] Start Date: 07/08/17 Status: Ordered Topamax 25 mg oral tablet 25 mg=1 tablet, PO, BID, # 60 tablet, Refill(s) 0 Start Date: 09/07/16 Status: Ordered traZODone 100 mg oral tablet See Instructions, 2.5 tablets PO HS (bedtime), Dispense=75 tablet, Refill(s) 3, Pharmacy: [facility] #[id number] Start Date: 07/08/17 Status: Ordered Vimpat 100 mg oral tablet See Instructions, 2.5 tablets BID, Refill(s) 0 Start Date: 11/20/14 Status: Ordered Results No data available for this section Immunizations No data available for this section Procedures No data available for this section Social History No data available for this section Assessment and Plan No data available for this section
--- OUTSIDE RECORDS SUMMARY | 2017-11-13 11:59 | XMS REPORT | CCD ---
Author Author Auto Generated Organization [facility] Address Unknown Phone Unavailable Care Team Providers Care Instructional Technology Specialist Name Role Phone Ld Argueta CP [phone] No, Referring RP Unavailable Add, [id number] PP Unavailable Allergies, Adverse Reactions, Alerts Substance Reaction Status Ativan Hyperactivity Active Prolonged Seizures felbamate Rashes Active Haldol FACIAL SWELLING Active Lamictal rash Active Tegretol Rashes Active Problem List Condition Effective Dates Status Epilepsy Active Intellectual disability Active Intermittent explosive disorder Active Irritability and anger Active Medications Medication Instructions Start Date End Date Status Intuniv 4 mg oral 4 mg=1 tablet, PO, daily, x 30 09/07/2016 09/02/2017 Ordered tablet, extended day(s), # 30 tablet, Refill(s) 11, release Pharmacy: [facility] #[id number] traZODone 50 mg oral See Instructions, TAKE FOUR TABLETS 09/07/2016 Ordered tablet BY MOUTH EVERY NIGHT AT BEDTIME, # 120 tablet, Refill(s) 11, Pharmacy: [facility] #[id number] TAKE FOUR TABLETS BY MOUTH EVERY NIGHT AT BEDTIME melatonin *NF* 10 mg, PO, HS (bedtime), Takes 1 to 09/09/2010 Ordered 1.5 tablets daily, Constant Indicator Takes 1 to 1.5 tablets daily Vimpat 100 mg oral See Instructions, 2.5 tablets BID, 11/20/2014 Ordered tablet Refill(s) 0 2.5 tablets BID Topamax 25 mg oral 25 mg=1 tablet, PO, BID, # 60 09/07/2016 Ordered tablet tablet, Refill(s) 0 magnesium oxide 400 mg, Refill(s) 0 12/27/2011 Ordered ranitidine 150 mg 150 mg=1 tablet, PO, BID, # 60 07/06/2016 Ordered oral tablet tablet, Refill(s) 1, Pharmacy: [facility] #[id number] Vital Signs Most recent to oldest [Reference Range]: 1 Heart Rate [45-120 bpm] 92 bpm (09/07/2016 16:04:00) Most recent to oldest [Reference Range]: 1 Respiratory Rate [10-40 BR/min] 18 BR/min (09/07/2016 16:04:00) Most recent to oldest [Reference Range]: 1 Blood Pressure Cuff [90-140/45-90 mmHg] <content ID='[id number]'>134</ content>/<content ID='[id number]'>61</content> mmHg (09/07/2016 16:04:00) Most recent to oldest [Reference Range]: 1 Current Weight 71.2 kg (09/07/2016 16:04:00) Most recent to oldest [Reference Range]: 1 Height/Length 148.6 cm (09/07/2016 16:04:00)
--- OUTSIDE RECORDS SUMMARY | 2017-11-13 11:59 | XMS REPORT | CCD ---
Author Author Auto Generated Organization [facility] Address Unknown Phone Unavailable Care Team Providers Care Lean Six Sigma Senior Specialist Name Role Phone Ld Argueta CP [phone] No, Referring RP Unavailable Hue Chowdary PP [phone] Allergies, Adverse Reactions, Alerts Substance Reaction Status [...] tablet, extended tablet, Refill(s) 8, Pharmacy: release [facility] #[id number] clobazam 10 mg oral See Instructions, Take [...] daily Vimpat 100 mg oral See Instructions, 3 tablet by mouth 11/20/2014 Ordered tablet bid, Refill(s) 0 3 tablet by mouth bid ranitidine 150 mg See Instructions, TAKE ONE TABLET 07/14/2015 Ordered oral tablet BY MOUTH TWICE A DAY, # 60 tablet, Refill(s) 10, eRx: [facility] #[id number] TAKE ONE TABLET BY MOUTH TWICE A DAY traZODone 50 mg oral See Instructions, TAKE FOUR TABLETS 10/20/2015 Ordered tablet BY MOUTH EVERY NIGHT AT BEDTIME, # 120 tablet, Refill(s) 9, eRx: [facility] #[id number] TAKE FOUR TABLETS BY MOUTH EVERY NIGHT AT BEDTIME magnesium oxide 400 mg, Refill(s) 0 12/27/2011 Ordered Vital Signs Most recent to oldest [Reference Range]: 1 Heart Rate [45-120 bpm] 68 bpm (04/05/2016 12:43:00) Most recent to oldest [Reference Range]: 1 Blood Pressure Cuff [90-140/45-90 mmHg] <content ID='[id number]'>122</ content>/<content ID='[id number]'>66</content> mmHg (04/05/2016 12:43:00) Most recent to oldest [Reference Range]: 1 Current Weight 69.7 kg (04/05/2016 12:43:00) Most recent to oldest [Reference Range]: 1 Height/Length 148.7 cm (04/05/2016 12:43:00)
--- OUTSIDE RECORDS SUMMARY | 2017-11-13 11:59 | XMS REPORT | CCD ---
Author Author Auto Generated Organization [facility] Address Unknown Phone Unavailable Care Team Providers Care Offset Proof Press Operator Name Role Phone Ld Argueta CP [phone] Self, Referring RP Unavailable Hue Chowdary PP [phone] Allergies, Adverse Reactions, Alerts Substance Reaction Status [...] # 30 tablet, Refill(s) 11, release Pharmacy: [facility] #[id number] traZODone 50 mg oral See Instructions, TAKE FOUR TABLETS 09/07/2016 Ordered tablet BY MOUTH EVERY NIGHT AT BEDTIME, # 120 tablet, Refill(s) 11, Pharmacy: [facility] #[id number] TAKE FOUR TABLETS BY MOUTH EVERY NIGHT [...] 60 09/07/2016 Ordered tablet tablet, Refill(s) 0 raNITIdine 150 mg 150 mg=1 tablet, PO, BID, # 60 09/20/2016 Ordered oral tablet tablet, Refill(s) 1, Pharmacy: [facility] #[id number] magnesium oxide 400 mg, Refill(s) 0 12/27/2011 Ordered Vital Signs Most recent to oldest [Reference Range]: 1 Heart Rate [45-120 bpm] 61 bpm (02/08/2017 09:12:00) Most recent to oldest [Reference Range]: 1 Respiratory Rate [10-40 BR/min] 18 BR/min (02/08/2017 09:12:00) Most recent to oldest [Reference Range]: 1 Blood Pressure Cuff [90-140/45-90 mmHg] <content ID='[id number]'>121</ content>/<content ID='[id number]'>66</content> mmHg (02/08/2017 09:12:00) Most recent to oldest [Reference Range]: 1 Current Weight 69.6 kg (02/08/2017 09:12:00)
--- OUTSIDE RECORDS SUMMARY | 2017-11-13 12:02 | XMS REPORT | Continuity of Care Document ---
Author Author [facility] Organization [facility] Address Unknown Phone Unavailable Allergies Active Description Code Type Severity Reaction Onset Reported/Identified Relationship to Patient Clinical Status Yes haloperidol [id number] Drug Allergy Mild N/A 07/16/2016 Yes lorazepam [id number] Drug Allergy Unknown N/A 07/16/2016 Medications There is no data. Problems Date Dx Coded Attending Type Code Diagnosis Diagnosed By 02/01/2010 Ot 564.00 01/30/2011 Ot 813.44 FX LOW RADIUS W ULNA-CL 01/30/2011 Ot 959.3 ELB/FOREARM/ WRST INJ NOS 01/30/2011 Ot E000.8 OTHER EXTERNAL CAUSE STATUS 01/30/2011 Ot E849.0 ACCIDENT IN HOME 01/30/2011 Ot E884.3 FALL FROM WHEELCHAIR 04/04/2011 Ot 345.90 EPILEPSY UNSPEC W/O MENTION INTRACTABLE 04/04/2011 Ot V58.69 OTH MED,LT, CURRENT USE 07/03/2011 Ot 382.9 OTITIS MEDIA NOS 07/03/2011 Ot 490 BRONCHITIS NOS 07/03/2011 Ot 780.60 FEVER, UNSPECIFIED 09/26/2011 Ot 462 ACUTE PHARYNGITIS 09/26/2011 Ot 780.60 FEVER, UNSPECIFIED 03/14/2012 Ot 780.39 OTHER CONVULSIONS 12/22/2012 TRAVIS SOLORZANO MD Ot 324.0 INTRACRANIAL ABSCESS 12/22/2012 TRAVIS SOLORZANO MD Ot 780.60 FEVER, UNSPECIFIED 03/07/2013 ENRIQUE GERBER MD Ot 342.10 SPASTIC HEMIPLEGIA HEMIPARESIS AFF UNS 03/07/2013 ENRIQUE GERBER MD Ot V57.3 CARE INVOLVING SPEECH-LANGUAGE THERAPY 03/07/2013 ENRIQUE GERBER MD Ot 342.10 SPASTIC HEMIPLEGIA HEMIPARESIS AFF UNS 03/07/2013 ENRIQUE GERBER MD Ot V57.21 ENCOUNTER FOR OCCUPATIONAL THERAPY 03/13/2013 ENRIQUE GERBER MD Ot 342.10 SPASTIC HEMIPLEGIA HEMIPARESIS AFF UNS 03/13/2013 ZABRINA ZIEGLER, ENRIQUE Triana Ot V57.1 PHYSICAL THERAPY NEC 08/14/2013 JEANINE ZIEGLER, TRAVIS Upton Ot 462 ACUTE PHARYNGITIS 08/14/2013 TRAVIS SOLORZANO MD Ot 599.0 URIN TRACT INFECTION NOS 08/14/2013 TRAVIS SOLORZANO MD Ot 780.96 GENERALIZED PAIN 08/14/2013 TRAVIS SOLORZANO MD Ot 786.2 COUGH 09/27/2013 SIAHAMMAD Mendiola BOILER OUT Ot 788.41 URINARY FREQUENCY 06/26/2014 WESTON HERNANDEZ MD Ot 296.80 BIPOLAR DISORDER, UNSPECIFIED 06/26/2014 WESTON HERNANDEZ MD Ot 343.9 CEREBRAL PALSY NOS 06/26/2014 WESTON HERNANDEZ MD Ot 872.10 OPN WND EX EAR NOS-COMPL 06/26/2014 WESTON HERNANDEZ MD Ot E000.8 OTHER EXTERNAL CAUSE STATUS 06/26/2014 WESTON HERNANDEZ MD Ot E928.9 ACCIDENT NOS 12/23/2014 CHARLETTE FLOWERS MENTAL HYGIENE CONSULTANT Ot 845.00 SPRAIN OF ANKLE NOS 12/23/2014 CHARLETTE FLOWERS MENTAL HYGIENE CONSULTANT Ot 959.7 LOWER LEG INJURY NOS 12/23/2014 CHARLETTE FLOWERS APRN Ot E000.8 OTHER EXTERNAL CAUSE STATUS 12/23/2014 CHARLETTE FLOWERS APRN Ot E927.0 OVEREXERTION FROM SUDDEN STRENUOUS MOVEM 01/16/2015 Ot 789.00 01/16/2015 Ot 780.60 01/16/2015 Ot 788.41 02/04/2015 MAURICIO OSUNA MD Ot 959.7 02/04/2015 MAURICIO OSUNA MD Ot E000.8 02/04/2015 MAURICIO OSUNA MD Ot E004.9 02/04/2015 MAURICIO OSUNA MD Ot E849.0 02/04/2015 MAURICIO OSUNA MD Ot E928.9 07/18/2015 MAURICIO OSUNA MD Ot M54.9 07/24/2015 MAURICIO OSUNA MD Ot M54.9 07/31/2015 MAURICIO OSUNA MD Ot M54.9 08/30/2015 MARY ZIEGLER, WETSON Harley Ot N39.0 URINARY TRACT INFECTION, SITE NOT SPECIF 02/11/2016 Ot 788.41 URINARY FREQUENCY 02/11/2016 ENRRIQUE ZIEGLER, MAURICIO Will Ot 959.7 LOWER LEG INJURY NOS 02/11/2016 ENRRIQUE ZIEGLER, MAURICIO Will Ot E000.8 OTHER EXTERNAL CAUSE STATUS 02/11/2016 MAURICIO OSUNA MD Ot E004.9 OTHER ACTIVITY INVG CLIMBING, RAPPELLING 02/11/2016 ENRRIQUE ZIEGLER, MAURICIO Will Ot E849.0 ACCIDENT IN HOME 02/11/2016 ENRRIQUE ZIEGLER, MAURICIO Will Ot E928.9 ACCIDENT NOS 02/11/2016 ENRRIQUE ZIEGLER, MAURICIO Will Ot M54.9 DORSALGIA, UNSPECIFIED 02/11/2016 JENI ZIEGLER, ELIGIO Tolliver Ot B35.0 TINEA BARBAE AND TINEA CAPITIS 02/11/2016 JENI ZIEGLER, ELIGIO T Ot F84.0 AUTISTIC DISORDER 02/11/2016 JENI ZIEGLER, ELIGIO T Ot G80.9 CEREBRAL PALSY, UNSPECIFIED 02/12/2016 JENI ZIEGLER, ELIGIO T Ot B35.0 TINEA BARBAE AND TINEA CAPITIS 02/12/2016 JENI ZIEGLER, ELIGIO T Ot F84.0 AUTISTIC DISORDER 02/12/2016 JENI ZIEGLER, ELIGIO Tolliver Ot G80.9 CEREBRAL PALSY, UNSPECIFIED 03/26/2016 Ot 788.41 URINARY FREQUENCY 03/26/2016 CHARLETTE FLOWERS APRN Ot G40.909 EPILEPSY, UNSP, NOT INTRACTABLE, WITHOUT 03/26/2016 CHARLETTE FLOWERS APRN Ot G80.9 CEREBRAL PALSY, UNSPECIFIED 03/26/2016 CHARLETTE FLOWERS APRN Ot Z79.899 OTHER INTERNAL CONTROLS ANALYST (CURRENT) DRUG THERAPY 04/05/2016 CHARLETTE FLOWERS APRN Ot G40.909 EPILEPSY, UNSP, NOT INTRACTABLE, WITHOUT 04/05/2016 CHARLETTE FLOWERS APRN Ot G80.9 CEREBRAL PALSY, UNSPECIFIED 04/05/2016 CHARLETTE FLOWERS APRN Ot Z79.899 OTHER INTERNAL CONTROLS ANALYST (CURRENT) DRUG THERAPY 04/09/2016 CHARLETTE FLOWERS APRN Ot G40.909 EPILEPSY, UNSP, NOT INTRACTABLE, WITHOUT 04/09/2016 CHARLETTE FLOWERS APRN Ot G80.9 CEREBRAL PALSY, UNSPECIFIED 04/09/2016 CHARLETTE FLOWERS MENTAL HYGIENE CONSULTANT Ot Z79.899 OTHER INTERNAL CONTROLS ANALYST (CURRENT) DRUG THERAPY 05/28/2016 KACY ZIEGLER, JORGE LUIS Donaldson Ot F31.9 BIPOLAR DISORDER, UNSPECIFIED 05/28/2016 KACY ZIEGLER, JORGE LUIS Donaldson Ot G40.909 EPILEPSY, UNSP, NOT INTRACTABLE, WITHOUT 05/28/2016 KACY ZIEGLER, JORGE LUIS Donaldson Ot G80.9 CEREBRAL PALSY, UNSPECIFIED 05/28/2016 KACY ZIEGLER, JORGE LUIS Donaldson Ot R55 SYNCOPE AND COLLAPSE 05/28/2016 KACY ZIEGLER, JORGE LUIS Donaldson Ot Z79.899 OTHER [facility] (CURRENT) DRUG THERAPY 05/31/2016 KACY ZIEGLER, JORGE LUIS Donaldson Ot F31.9 BIPOLAR DISORDER, UNSPECIFIED 05/31/2016 JORGE LUIS WOODRUFF MD Ot G40.909 EPILEPSY, UNSP, NOT INTRACTABLE, WITHOUT 05/31/2016 KACY ZIEGLER, JORGE LUIS Donaldson Ot G80.9 CEREBRAL PALSY, UNSPECIFIED 05/31/2016 KACY ZIEGLER, JORGE LUIS Donaldson Ot R55 SYNCOPE AND COLLAPSE 05/31/2016 KACY ZIEGLER, JORGE LUIS Donaldson Ot Z79.899 OTHER INTERNAL CONTROLS ANALYST (CURRENT) DRUG THERAPY 06/10/2016 RICKEY ZIEGLER, PAPA Forrest Ot G40.309 GEN IDIOPATHIC EPILEPSY, NOT INTRACTABLE 06/15/2016 PAPA LANG MD Ot G40.309 GEN IDIOPATHIC EPILEPSY, NOT INTRACTABLE 07/16/2016 Ot 788.41 URINARY FREQUENCY 07/17/2016 WESTON HERNANDEZ MD Ot F84.0 AUTISTIC DISORDER 07/17/2016 WESTON HERNANDEZ MD Ot G40.909 EPILEPSY, UNSP, NOT INTRACTABLE, WITHOUT 07/17/2016 WESTON HERNANDEZ MD Ot G80.9 CEREBRAL PALSY, UNSPECIFIED 07/17/2016 WESTON HERNANDEZ MD Ot J02.9 ACUTE PHARYNGITIS, UNSPECIFIED 07/17/2016 WESTON HERNANDEZ MD Ot N39.0 URINARY TRACT INFECTION, SITE NOT SPECIF 07/17/2016 WESTON HERNANDEZ MD Ot R05 COUGH 07/17/2016 WESTON HERNANDEZ MD, Ot Z79.899 OTHER INTERNAL CONTROLS ANALYST (CURRENT) DRUG THERAPY 07/17/2016 WESTON HERNANDEZ MD Ot Z98.890 OTHER SPECIFIED POSTPROCEDURAL STATES 07/19/2016 WESTON HERNANDEZ MD Ot F84.0 AUTISTIC DISORDER 07/19/2016 WESTON HERNANDEZ MD Ot G40.909 EPILEPSY, UNSP, NOT INTRACTABLE, WITHOUT 07/19/2016 WESTON HERNANDEZ MD Ot G80.9 CEREBRAL PALSY, UNSPECIFIED 07/19/2016 WESTON HERNANDEZ MD Ot J02.9 ACUTE PHARYNGITIS, UNSPECIFIED 07/19/2016 WESTON HERNANDEZ MD Ot N39.0 URINARY TRACT INFECTION, SITE NOT SPECIF 07/19/2016 WESTON HERNANDEZ MD Ot R05 COUGH 07/19/2016 WESTON HERNANDEZ MD Ot Z79.899 OTHER INTERNAL CONTROLS ANALYST (CURRENT) DRUG THERAPY 07/19/2016 WESTON HERNANDEZ MD Ot Z98.890 OTHER SPECIFIED POSTPROCEDURAL STATES 11/04/2016 RICKEY ZIEGLER, PAPA C Ot R30.0 DYSURIA 11/04/2016 RICKEY ZIEGLER, PAPA C Ot R56.9 UNSPECIFIED CONVULSIONS 11/29/2016 PAPA LANG MD C Ot R30.0 DYSURIA 11/29/2016 PAPA LANG MD C Ot R56.9 UNSPECIFIED CONVULSIONS 11/30/2016 PAPA LANG MD C Ot R30.0 DYSURIA 11/30/2016 PAPA LANG MD C Ot R56.9 UNSPECIFIED CONVULSIONS 01/02/2017 WESTON HERNANDEZ MD Ot G40.909 EPILEPSY, UNSP, NOT INTRACTABLE, WITHOUT 01/02/2017 WESTON HERNANDEZ MD Ot G80.9 CEREBRAL PALSY, UNSPECIFIED 01/02/2017 WESTON HERNANDEZ MD Ot Z79.899 OTHER [facility] (CURRENT) DRUG THERAPY 01/04/2017 WESTON HERNANDEZ MD Ot G40.909 EPILEPSY, UNSP, NOT INTRACTABLE, WITHOUT 01/04/2017 WESTON HERNANDEZ MD Ot G80.9 CEREBRAL PALSY, UNSPECIFIED 01/04/2017 WESTON HERNANDEZ MD Ot Z79.899 OTHER INTERNAL CONTROLS ANALYST (CURRENT) DRUG THERAPY 06/02/2017 RICKEY ZIEGLER, PAPA Forrest Ot R10.11 RIGHT UPPER QUADRANT PAIN 06/27/2017 PAPA LANG MD Ot R10.11 RIGHT UPPER QUADRANT PAIN 06/29/2017 PAPA LANG MD Ot R10.11 RIGHT UPPER QUADRANT PAIN Procedures There is no data. Results Test Result Range Complete blood count (CBC) with automated white blood cell (WBC) differential - 03/26/16 13:25 Blood leukocytes automated count (number/volume) 10.8 10*3/uL 4.3-11.0 Blood erythrocytes automated count (number/volume) 4.63 10*6/uL 4.35-5.85 Venous blood hemoglobin measurement (mass/volume) 13.5 g/dL 11.5-16.0 Blood hematocrit (volume fraction) 41 % 35-52 Automated erythrocyte mean corpuscular volume 88 [foz_us] 80-99 Automated erythrocyte mean corpuscular hemoglobin (mass per erythrocyte) 29 pg 25-34 Automated erythrocyte mean corpuscular hemoglobin concentration measurement ( mass/volume) 33 g/dL 32-36 Automated erythrocyte distribution width ratio 14.5 % 10.0-14.5 Automated blood platelet count (count/volume) 289 10*3/uL 130-400 Automated blood platelet mean volume measurement 10.8 [foz_us] 7.4-10.4 Automated blood neutrophils/100 leukocytes 57 % 42-75 Automated blood lymphocytes/100 leukocytes 30 % 12-44 Blood monocytes/100 leukocytes 11 % 0-12 Automated blood eosinophils/100 leukocytes 2 % 0-10 Automated blood basophils/100 leukocytes 0 % 0-10 Blood neutrophils automated count (number/volume) 6.1 10*3 1.8-7.8 Blood lymphocytes automated count (number/volume) 3.3 10*3 1.0-4.0 Blood monocytes automated count (number/volume) 1.2 10*3 0.0-1.0 Automated eosinophil count 0.2 10*3/uL 0.0-0.3 Automated blood basophil count (count/volume) 0.0 10*3/uL 0.0-0.1 Comprehensive metabolic panel - 03/26/16 13:25 Serum or plasma sodium measurement (moles/volume) 140 mmol/L 135-145 Serum or plasma potassium measurement (moles/volume) 4.2 mmol/L 3.6-5.0 Serum or plasma chloride measurement (moles/volume) 110 mmol/L 98-107 Carbon dioxide 21 mmol/L 21-32 Serum or plasma anion gap determination (moles/volume) 9 mmol/L 5-14 Serum or plasma urea nitrogen measurement (mass/volume) 15 mg/dL 7-18 Serum or plasma creatinine measurement (mass/volume) 0.82 mg/dL 0.60-1.30 Serum or plasma urea nitrogen/creatinine mass ratio 18 NRG Serum or plasma creatinine measurement with calculation of estimated glomerular filtration rate > NRG Serum or plasma glucose measurement (mass/volume) 105 mg/dL 70-105 Serum or plasma calcium measurement (mass/volume) 9.4 mg/dL 8.5-10.1 Serum or plasma total bilirubin measurement (mass/volume) 0.4 mg/dL 0.1-1.0 Serum or plasma alkaline phosphatase measurement (enzymatic activity/volume) 64 U/L 40-136 Serum or plasma aspartate aminotransferase measurement (enzymatic activity/ volume) 16 U/L 5-34 Serum or plasma alanine aminotransferase measurement (enzymatic activity/volume ) 24 U/L 0-55 Serum or plasma protein measurement (mass/volume) 7.2 g/dL 6.4-8.2 Serum or plasma albumin measurement (mass/volume) 4.4 g/dL 3.2-4.5 Complete urinalysis with reflex to culture - 03/26/16 14:20 Urine color determination YELLOW NRG Urine clarity determination VERY CLOUDY NRG Urine pH measurement by test strip 8 5-9 Specific gravity of urine by test strip 1.010 1.016- 1.022 Urine protein assay by test strip, semi-quantitative NEGATIVE NEGATIVE Urine glucose detection by automated test strip NEGATIVE NEGATIVE Erythrocytes detection in urine sediment by light microscopy NEGATIVE NEGATIVE Urine ketones detection by automated test strip NEGATIVE NEGATIVE Urine nitrite detection by test strip NEGATIVE NEGATIVE Urine total bilirubin detection by test strip NEGATIVE NEGATIVE Urine urobilinogen measurement by automated test strip (mass/volume) NORMAL NORMAL Urine leukocyte esterase detection by dipstick NEGATIVE NEGATIVE Automated urine sediment erythrocyte count by microscopy (number/high power field) NONE NRG Automated urine sediment leukocyte count by microscopy (number/high power field ) NONE NRG Bacteria detection in urine sediment by light microscopy NEGATIVE NRG Squamous epithelial cells detection in urine sediment by light microscopy 0-2 NRG Crystals detection in urine sediment by light microscopy PRESENT NRG Casts detection in urine sediment by light microscopy NONE NRG Mucus detection in urine sediment by light microscopy NEGATIVE NRG Complete urinalysis with reflex to culture NO NRG Amorphous sediment detection in urine sediment by light microscopy MOD KEKE PHOSPHATE NRG Complete blood count (CBC) with automated white blood cell (WBC) differential - 05/17/16 09:27 Blood leukocytes automated count (number/volume) 10.8 10*3/uL 4.3-11.0 Blood erythrocytes automated count (number/volume) 4.62 10*6/uL 4.35-5.85 Venous blood hemoglobin measurement (mass/volume) 13.8 g/dL 11.5-16.0 Blood hematocrit (volume fraction) 41 % 35-52 Automated erythrocyte mean corpuscular volume 89 [foz_us] 80-99 Automated erythrocyte mean corpuscular hemoglobin (mass per erythrocyte) 30 pg 25-34 Automated erythrocyte mean corpuscular hemoglobin concentration measurement ( mass/volume) 33 g/dL 32-36 Automated erythrocyte distribution width ratio 14.0 % 10.0-14.5 Automated blood platelet count (count/volume) 347 10*3/uL 130-400 Automated blood platelet mean volume measurement 10.3 [foz_us] 7.4-10.4 Automated blood neutrophils/100 leukocytes 57 % 42-75 Automated blood lymphocytes/100 leukocytes 29 % 12-44 Blood monocytes/100 leukocytes 12 % 0-12 Automated blood eosinophils/100 leukocytes 2 % 0-10 Automated blood basophils/100 leukocytes 0 % 0-10 Blood neutrophils automated count (number/volume) 6.2 10*3 1.8-7.8 Blood lymphocytes automated count (number/volume) 3.1 10*3 1.0-4.0 Blood monocytes automated count (number/volume) 1.3 10*3 0.0-1.0 Automated eosinophil count 0.2 10*3/uL 0.0-0.3 Automated blood basophil count (count/volume) 0.0 10*3/uL 0.0-0.1 Complete urinalysis with reflex to culture - 05/17/16 09:27 Urine color determination YELLOW NRG Urine clarity determination CLEAR NRG Urine pH measurement by test strip 8 5-9 Specific gravity of urine by test strip 1.015 1.016- 1.022 Urine protein assay by test strip, semi-quantitative NEGATIVE NEGATIVE Urine glucose detection by automated test strip NEGATIVE NEGATIVE Erythrocytes detection in urine sediment by light microscopy NEGATIVE NEGATIVE Urine ketones detection by automated test strip NEGATIVE NEGATIVE Urine nitrite detection by test strip NEGATIVE NEGATIVE Urine total bilirubin detection by test strip NEGATIVE NEGATIVE Urine urobilinogen measurement by automated test strip (mass/volume) NORMAL NORMAL Urine leukocyte esterase detection by dipstick 1+ NEGATIVE Automated urine sediment erythrocyte count by microscopy (number/high power field) NONE NRG Automated urine sediment leukocyte count by microscopy (number/high power field ) [HPF] NRG Bacteria detection in urine sediment by light microscopy LARGE NRG Squamous epithelial cells detection in urine sediment by light microscopy >50 NRG Crystals detection in urine sediment by light microscopy NONE NRG Casts detection in urine sediment by light microscopy NONE NRG Mucus detection in urine sediment by light microscopy NEGATIVE NRG Complete urinalysis with reflex to culture NO NRG Whole blood basic metabolic panel - 05/17/16 09:27 Serum or plasma sodium measurement (moles/volume) 140 mmol/L 135-145 Serum or plasma potassium measurement (moles/volume) 3.8 mmol/L 3.6-5.0 Serum or plasma chloride measurement (moles/volume) 108 mmol/L 98-107 Carbon dioxide 20 mmol/L 21-32 Serum or plasma anion gap determination (moles/volume) 12 mmol/L 5-14 Serum or plasma urea nitrogen measurement (mass/volume) 13 mg/dL 7-18 Serum or plasma creatinine measurement (mass/volume) 0.86 mg/dL 0.60-1.30 Serum or plasma urea nitrogen/creatinine mass ratio 15 NRG Serum or plasma creatinine measurement with calculation of estimated glomerular filtration rate > NRG Serum or plasma glucose measurement (mass/volume) 108 mg/dL 70-105 Serum or plasma calcium measurement (mass/volume) 9.6 mg/dL 8.5-10.1 Serum or plasma C reactive protein measurement (mass/volume) - 05/17/16 09:27 Serum or plasma C reactive protein measurement (mass/volume) 0.35 mg /dL 0.00-0.50 Complete blood count (CBC) with automated white blood cell (WBC) differential - 07/16/16 21:19 Blood leukocytes automated count (number/volume) 16.9 10*3/uL 4.3-11.0 Blood erythrocytes automated count (number/volume) 4.54 10*6/uL 4.35-5.85 Venous blood hemoglobin measurement (mass/volume) 13.2 g/dL 11.5-16.0 Blood hematocrit (volume fraction) 39 % 35-52 Automated erythrocyte mean corpuscular volume 87 [foz_us] 80-99 Automated erythrocyte mean corpuscular hemoglobin (mass per erythrocyte) 29 pg 25-34 Automated erythrocyte mean corpuscular hemoglobin concentration measurement ( mass/volume) 34 g/dL 32-36 Automated erythrocyte distribution width ratio 14.2 % 10.0-14.5 Automated blood platelet count (count/volume) 350 10*3/uL 130-400 Automated blood platelet mean volume measurement 11.3 [foz_us] 7.4-10.4 Automated blood neutrophils/100 leukocytes 64 % 42-75 Automated blood lymphocytes/100 leukocytes 23 % 12-44 Blood monocytes/100 leukocytes 11 % 0-12 Automated blood eosinophils/100 leukocytes 1 % 0-10 Automated blood basophils/100 leukocytes 0 % 0-10 Blood neutrophils automated count (number/volume) 10.8 10*3 1.8-7.8 Blood lymphocytes automated count (number/volume) 3.9 10*3 1.0-4.0 Blood monocytes automated count (number/volume) 1.9 10*3 0.0-1.0 Automated eosinophil count 0.2 10*3/uL 0.0-0.3 Automated blood basophil count (count/volume) 0.1 10*3/uL 0.0-0.1 Influenza virus A and B antigen detection - 07/16/16 21:19 FLU RESULT NEGATIVE FOR INFLUENZA A AND B ANTIGENS BY IA [facility] Comprehensive metabolic panel - 07/16/16 21:19 Serum or plasma sodium measurement (moles/volume) 144 mmol/L 135-145 Serum or plasma potassium measurement (moles/volume) 3.7 mmol/L 3.6-5.0 Serum or plasma chloride measurement (moles/volume) 112 mmol/L 98-107 Carbon dioxide 23 mmol/L 21-32 Serum or plasma anion gap determination (moles/volume) 9 mmol/L 5-14 Serum or plasma urea nitrogen measurement (mass/volume) 16 mg/dL 7-18 Serum or plasma creatinine measurement (mass/volume) 0.79 mg/dL 0.60-1.30 Serum or plasma urea nitrogen/creatinine mass ratio 20 NRG Serum or plasma creatinine measurement with calculation of estimated glomerular filtration rate > NRG Serum or plasma glucose measurement (mass/volume) 118 mg/dL 70-105 Serum or plasma calcium measurement (mass/volume) 9.6 mg/dL 8.5-10.1 Serum or plasma total bilirubin measurement (mass/volume) 0.3 mg/dL 0.1-1.0 Serum or plasma alkaline phosphatase measurement (enzymatic activity/volume) 68 U/L 40-136 Serum or plasma aspartate aminotransferase measurement (enzymatic activity/ volume) 15 U/L 5-34 Serum or plasma alanine aminotransferase measurement (enzymatic activity/volume ) 17 U/L 0-55 Serum or plasma protein measurement (mass/volume) 7.2 g/dL 6.4-8.2 Serum or plasma albumin measurement (mass/volume) 4.6 g/dL 3.2-4.5 Serum or plasma C reactive protein measurement (mass/volume) - 07/16/16 21:19 Serum or plasma C reactive protein measurement (mass/volume) 0.35 mg /dL 0.00-0.50 Blood manual differential performed detection - 07/16/16 21:19 Blood monocytes/100 leukocytes 1 % NRG Manual blood segmented neutrophils/100 leukocytes 65 % NRG Blood band neutrophils/100 leukocytes 0 % NRG Manual blood lymphocytes/100 leukocytes 34 % NRG Manual eosinophils/100 leukocytes in nose 0 % NRG Manual blood basophils/100 leukocytes 0 % NRG Blood erythrocyte morphology finding identification NORMAL NRG Complete urinalysis with reflex to culture - 07/16/16 22:30 Urine color determination RED NRG Urine clarity determination SLIGHTLY CLOUDY NRG Urine pH measurement by test strip 8 5-9 Specific gravity of urine by test strip 1.015 1.016- 1.022 Urine protein assay by test strip, semi-quantitative 3+ NEGATIVE Urine glucose detection by automated test strip NEGATIVE NEGATIVE Erythrocytes detection in urine sediment by light microscopy 5+ NEGATIVE Urine ketones detection by automated test strip NEGATIVE NEGATIVE Urine nitrite detection by test strip NEGATIVE NEGATIVE Urine total bilirubin detection by test strip NEGATIVE NEGATIVE Urine urobilinogen measurement by automated test strip (mass/volume) NORMAL NORMAL Urine leukocyte esterase detection by dipstick 2+ NEGATIVE Automated urine sediment erythrocyte count by microscopy (number/high power field) TNTC NRG Automated urine sediment leukocyte count by microscopy (number/high power field ) [HPF] NRG Bacteria detection in urine sediment by light microscopy FEW NRG Crystals detection in urine sediment by light microscopy PRESENT NRG Casts detection in urine sediment by light microscopy NONE NRG Mucus detection in urine sediment by light microscopy NEGATIVE NRG Complete urinalysis with reflex to culture YES NRG Amorphous sediment detection in urine sediment by light microscopy MOD KEKE PHOSPHATE NRG Bacterial urine culture - 07/16/16 22:30 URINE CULTURE RESULTS MORE THAN 3 ISOLATES NRG Blood CBC with ordered manual differential panel - 11/03/16 11:40 Blood leukocytes automated count (number/volume) 12.7 10*3/uL 4.3-11.0 Blood erythrocytes automated count (number/volume) 4.68 10*6/uL 4.35-5.85 Venous blood hemoglobin measurement (mass/volume) 13.4 g/dL 11.5-16.0 Blood hematocrit (volume fraction) 40 % 35-52 Automated erythrocyte mean corpuscular volume 86 [foz_us] 80-99 Automated erythrocyte mean corpuscular hemoglobin (mass per erythrocyte) 29 pg 25-34 Automated erythrocyte mean corpuscular hemoglobin concentration measurement ( mass/volume) 33 g/dL 32-36 Automated erythrocyte distribution width ratio 14.1 % 10.0-14.5 Automated blood platelet count (count/volume) 350 10*3/uL 130-400 Automated blood platelet mean volume measurement 10.5 [foz_us] 7.4-10.4 Automated blood neutrophils/100 leukocytes 62 % 42-75 Automated blood lymphocytes/100 leukocytes 26 % 12-44 Blood monocytes/100 leukocytes 11 % NRG Automated blood eosinophils/100 leukocytes 1 % 0-10 Automated blood basophils/100 leukocytes 0 % 0-10 Blood neutrophils automated count (number/volume) 7.9 10*3 1.8-7.8 Blood lymphocytes automated count (number/volume) 3.3 10*3 1.0-4.0 Blood monocytes automated count (number/volume) 1.3 10*3 0.0-1.0 Automated eosinophil count 0.1 10*3/uL 0.0-0.3 Automated blood basophil count (count/volume) 0.0 10*3/uL 0.0-0.1 Manual blood segmented neutrophils/100 leukocytes 60 % NRG Blood band neutrophils/100 leukocytes 2 % NRG Manual blood lymphocytes/100 leukocytes 27 % NRG Manual eosinophils/100 leukocytes in nose 0 % NRG Manual blood basophils/100 leukocytes 0 % [facility] Blood erythrocyte morphology finding identification NORMAL [facility] Comprehensive metabolic panel - 11/03/16 11:40 Serum or plasma sodium measurement (moles/volume) 140 mmol/L 135-145 Serum or plasma potassium measurement (moles/volume) 4.1 mmol/L 3.6-5.0 Serum or plasma chloride measurement (moles/volume) 109 mmol/L 98-107 Carbon dioxide 23 mmol/L 21-32 Serum or plasma anion gap determination (moles/volume) 8 mmol/L 5-14 Serum or plasma urea nitrogen measurement (mass/volume) 15 mg/dL 7-18 Serum or plasma creatinine measurement (mass/volume) 0.99 mg/dL 0.60-1.30 Serum or plasma urea nitrogen/creatinine mass ratio 15 NR Serum or plasma creatinine measurement with calculation of estimated glomerular filtration rate > [facility] Serum or plasma glucose measurement (mass/volume) 100 mg/dL 70-105 Serum or plasma calcium measurement (mass/volume) 9.1 mg/dL 8.5-10.1 Serum or plasma total bilirubin measurement (mass/volume) 0.5 mg/dL 0.1-1.0 Serum or plasma alkaline phosphatase measurement (enzymatic activity/volume) 68 U/L 40-136 Serum or plasma aspartate aminotransferase measurement (enzymatic activity/ volume) 12 U/L 5-34 Serum or plasma alanine aminotransferase measurement (enzymatic activity/volume ) 13 U/L 0-55 Serum or plasma protein measurement (mass/volume) 7.4 g/dL 6.4-8.2 Serum or plasma albumin measurement (mass/volume) 4.5 g/dL 3.2-4.5 Complete urinalysis with reflex to culture - 11/03/16 11:45 Urine color determination YELLOW [facility] Urine clarity determination CLEAR [facility] Urine pH measurement by test strip 6 5-9 Specific gravity of urine by test strip 1.020 1.016- 1.022 Urine protein assay by test strip, semi-quantitative 1+ NEGATIVE Urine glucose detection by automated test strip NEGATIVE NEGATIVE Erythrocytes detection in urine sediment by light microscopy NEGATIVE NEGATIVE Urine ketones detection by automated test strip NEGATIVE NEGATIVE Urine nitrite detection by test strip NEGATIVE NEGATIVE Urine total bilirubin detection by test strip NEGATIVE NEGATIVE Urine urobilinogen measurement by automated test strip (mass/volume) NORMAL NORMAL Urine leukocyte esterase detection by dipstick 2+ NEGATIVE Automated urine sediment erythrocyte count by microscopy (number/high power field) NONE NRG Automated urine sediment leukocyte count by microscopy (number/high power field ) [HPF] NRG Bacteria detection in urine sediment by light microscopy FEW NRG Squamous epithelial cells detection in urine sediment by light microscopy 10-25 NRG Crystals detection in urine sediment by light microscopy NONE NRG Casts detection in urine sediment by light microscopy NONE NRG Mucus detection in urine sediment by light microscopy SMALL NRG Complete urinalysis with reflex to culture YES NRG Bacterial urine culture - 11/03/16 11:45 Bacterial urine culture FOOTNOTE NRG Complete blood count (CBC) with automated white blood cell (WBC) differential - 01/02/17 18:45 Blood leukocytes automated count (number/volume) 14.8 10*3/uL 4.3-11.0 Blood erythrocytes automated count (number/volume) 4.69 10*6/uL 4.35-5.85 Venous blood hemoglobin measurement (mass/volume) 13.1 g/dL 11.5-16.0 Blood hematocrit (volume fraction) 41 % 35-52 Automated erythrocyte mean corpuscular volume 86 [foz_us] 80-99 Automated erythrocyte mean corpuscular hemoglobin (mass per erythrocyte) 28 pg 25-34 Automated erythrocyte mean corpuscular hemoglobin concentration measurement ( mass/volume) 32 g/dL 32-36 Automated erythrocyte distribution width ratio 15.2 % 10.0-14.5 Automated blood platelet count (count/volume) 419 10*3/uL 130-400 Automated blood platelet mean volume measurement 10.5 [foz_us] 7.4-10.4 Automated blood neutrophils/100 leukocytes 63 % 42-75 Automated blood lymphocytes/100 leukocytes 27 % 12-44 Blood monocytes/100 leukocytes 9 % 0-12 Automated blood eosinophils/100 leukocytes 1 % 0-10 Automated blood basophils/100 leukocytes 0 % 0-10 Blood neutrophils automated count (number/volume) 9.2 10*3 1.8-7.8 Blood lymphocytes automated count (number/volume) 3.9 10*3 1.0-4.0 Blood monocytes automated count (number/volume) 1.4 10*3 0.0-1.0 Automated eosinophil count 0.2 10*3/uL 0.0-0.3 Automated blood basophil count (count/volume) 0.1 10*3/uL 0.0-0.1 Comprehensive metabolic panel - 01/02/17 18:45 Serum or plasma sodium measurement (moles/volume) 142 mmol/L 135-145 Serum or plasma potassium measurement (moles/volume) 3.9 mmol/L 3.6-5.0 Serum or plasma chloride measurement (moles/volume) 108 mmol/L 98-107 Carbon dioxide 22 mmol/L 21-32 Serum or plasma anion gap determination (moles/volume) 12 mmol/L 5-14 Serum or plasma urea nitrogen measurement (mass/volume) 17 mg/dL 7-18 Serum or plasma creatinine measurement (mass/volume) 0.83 mg/dL 0.60-1.30 Serum or plasma urea nitrogen/creatinine mass ratio 20 NRG Serum or plasma creatinine measurement with calculation of estimated glomerular filtration rate > NRG Serum or plasma glucose measurement (mass/volume) 100 mg/dL 70-105 Serum or plasma calcium measurement (mass/volume) 9.8 mg/dL 8.5-10.1 Serum or plasma total bilirubin measurement (mass/volume) 0.3 mg/dL 0.1-1.0 Serum or plasma alkaline phosphatase measurement (enzymatic activity/volume) 70 U/L 40-136 Serum or plasma aspartate aminotransferase measurement (enzymatic activity/ volume) 13 U/L 5-34 Serum or plasma alanine aminotransferase measurement (enzymatic activity/volume ) 14 U/L 0-55 Serum or plasma protein measurement (mass/volume) 7.5 g/dL 6.4-8.2 Serum or plasma albumin measurement (mass/volume) 4.5 g/dL 3.2-4.5 Magnesium - 01/02/17 18:45 Magnesium 2.1 mg/dL 1.8-2.4 Blood manual differential performed detection - 01/02/17 18:45 Blood monocytes/100 leukocytes 4 % NRG Manual blood segmented neutrophils/100 leukocytes 55 % NRG Blood band neutrophils/100 leukocytes 0 % NRG Manual blood lymphocytes/100 leukocytes 40 % NRG Manual eosinophils/100 leukocytes in nose 0 % NRG Manual blood basophils/100 leukocytes 1 % NRG Blood erythrocyte morphology finding identification NORMAL NRG THYROID STIMULATING HORMONE - 01/02/17 18:45 THYROID STIMULATING HORMONE 0.92 u[iU]/mL 0.35-4.94 Complete urinalysis with reflex to culture - 01/02/17 18:50 Urine color determination YELLOW NRG Urine clarity determination CLEAR NRG Urine pH measurement by test strip 7 5-9 Specific gravity of urine by test strip 1.010 1.016- 1.022 Urine protein assay by test strip, semi-quantitative NEGATIVE NEGATIVE Urine glucose detection by automated test strip NEGATIVE NEGATIVE Erythrocytes detection in urine sediment by light microscopy NEGATIVE NEGATIVE Urine ketones detection by automated test strip NEGATIVE NEGATIVE Urine nitrite detection by test strip NEGATIVE NEGATIVE Urine total bilirubin detection by test strip NEGATIVE NEGATIVE Urine urobilinogen measurement by automated test strip (mass/volume) NORMAL NORMAL Urine leukocyte esterase detection by dipstick NEGATIVE NEGATIVE Automated urine sediment erythrocyte count by microscopy (number/high power field) NONE NRG Automated urine sediment leukocyte count by microscopy (number/high power field ) NONE NRG Bacteria detection in urine sediment by light microscopy NONE NRG Squamous epithelial cells detection in urine sediment by light microscopy 10-25 NRG Crystals detection in urine sediment by light microscopy NONE NRG Casts detection in urine sediment by light microscopy NONE NRG Mucus detection in urine sediment by light microscopy NEGATIVE NRG Complete urinalysis with reflex to culture NO NRG Encounters ACCT No. Visit Date/Time Discharge Status Pt. Type Provider Facility Loc./Unit Complaint [id number] 06/02/2017 07:50:00 06/02/2017 23:59:59 CLS Outpatient PAPA LANG MD [facility] RAD RUQ PAIN R10.11 [id number] 01/02/2017 18:26:00 01/02/2017 20:59:00 DIS Emergency WESTON HERNANDEZ MD [facility] ER SEIZURES [id number] 11/03/2016 11:22:00 11/03/2016 23:59:59 CLS Outpatient PAPA LANG MD [facility] LAB DYSURIA,SEIZURES [id number] 07/16/2016 20:59:00 07/17/2016 00:49:00 DIS Emergency WESTON HERNANDEZ MD [facility] ER SEIZURE [id number] 05/28/2016 13:31:00 05/28/2016 14:19:00 DIS Emergency JORGE LUIS WOODRUFF MD [facility] ER DIZZINESS/POSS REACTION TO FLU SHOT [id number] 05/17/2016 09:16:00 05/17/2016 23:59:59 CLS Outpatient PAPA LANG MD [facility] LAB SEIZURES,GENERALIZED IDIOPATHIC EPILEPSY [id number] 03/26/2016 13:21:00 03/26/2016 15:20:00 DIS Emergency CHARLETTE FLOWERS MENTAL HYGIENE CONSULTANT [facility] ER SEIZURE [id number] 02/11/2016 00:06:00 02/11/2016 00:58:00 DIS Emergency ELIGIO NGO MD [facility] ER [id number] 08/30/2015 20:21:00 08/30/2015 21:35:00 DIS Emergency WESTON HERNANDEZ MD [facility] ER [id number] 06/16/2015 14:58:00 06/16/2015 23:59:59 CLS Outpatient MAURICIO OSUNA MD [facility] RAD [id number] 01/16/2015 15:53:00 01/16/2015 23:59:59 CLS Outpatient MAURICIO OSUNA MD [facility] RAD [id number] 12/23/2014 20:18:00 12/23/2014 21:42:00 DIS Emergency CHARLETTE FLOWERS APRN [facility] ER [id number] 06/26/2014 08:16:00 06/26/2014 23:59:59 CLS Emergency WESTON HERNANDEZ MD [facility] ER [id number] 07/01/2013 07:45:00 09/27/2013 00:01:00 DIS Outpatient HAMMAD GALE [facility] LAB [id number] 08/14/2013 21:35:00 08/14/2013 23:32:00 DIS Emergency TRAVIS SOLORZANO MD [facility] ER [id number] 02/13/2013 14:14:00 03/13/2013 15:30:00 DIS Outpatient ENRIQUE GERBER MD [facility] REHAB [id number] 02/28/2013 12:52:00 03/07/2013 14:52:00 DIS [id number] 02/26/2013 13:08:00 03/07/2013 14:48:00 DIS Outpatient ZABRINA ZIEGLER, ENRIQUE Triana [facility] REHAB [id number] 12/22/2012 18:12:00 12/22/2012 22:40:00 DIS Emergency JEANINE ZIEGLER, TRAVIS Upton [facility] ER [id number] 09/28/2013 14:30:00 Document Registration [id number] 03/14/2012 20:12:00 Document Registration [id number] 09/26/2011 20:29:00 Document Registration [id number] 07/02/2011 22:35:00 Document Registration [id number] 04/03/2011 23:56:00 Document Registration [id number] 01/30/2011 17:48:00 Document Registration [id number] 02/18/2010 13:33:00 Document Registration [id number] 02/01/2010 00:05:00 Document Registration [id number] 10/01/2009 07:56:00 Document Registration [id number] 01/17/2015 05:33:16 ACT Document Registration [id number] 07/22/2017 15:30:00 07/22/2017 23:59:59 CLS Outpatient AMERICO ZIEGLER, JONATHON Eckert [facility]
--- OUTSIDE RECORDS SUMMARY | 2017-11-13 12:02 | XMS REPORT ---
Author Author JERAMIE VANG Organization [facility] Address [address] [place] [address] Phone Unavailable Care Team Providers Care Senior Chemical Process Engineer Name Role Phone JERAMIE VANG Unavailable Unavailable PROBLEMS Type Condition ICD9-CM Code MWQ57-QT Code Onset Dates Condition Status SNOMED Code Problem Seizures R56.9 Active 57783523 Problem Dizziness R42 Active 843267183 Problem Granuloma annulare L92.0 Active 14936046 Problem Bipolar disorder F31.9 Active 49429629 Problem Scoliosis M41.9 Active 688373276 Problem Cerebral palsy G80.9 Active 138536749 Problem Leukocytosis D72.829 Active 600015894 ALLERGIES Substance Reaction Event Type Date Status Haldol Unknown Drug Allergy Jan, Active Ativan Unknown Drug Allergy Jan, Active ENCOUNTERS Encounter Location Date Diagnosis [facility] [id number], [place] [address] Nov, [facility] [id number] [place] [id number] Nov, [facility] [id number] [place] [phone] Aug, Encounter for dental exam and cleaning w/o abnormal findings Z01.20 [facility] [id number] [place] [phone] Aug, Dental examination Z01.20 [facility] [id number] [place] [id number] Jul, Dental examination Z01.20 [facility] [id number] [place] [id number] Jul, Dental examination Z01.20 [facility] [id number] [place] [id number] Apr, Encounter for dental examination and cleaning without abnormal findings Z01.20 [id number] [facility] [id number] [place] [phone] Mar, Encounter for dental examination Z01.20 [facility] [address] [place] [id number] Jan, Encounter for dental examination and cleaning without abnormal findings Z01.20 [facility] [id number] [place] [phone] Mar, [facility] [id number] [place] [phone] Mar, Seizures R56.9 ; Folliculitis L73.9 ; Appetite loss R63.0 and Weight loss R63.4 [id number] [place] [phone] Mar, [facility] [id number] [place] [phone] Feb, Dizziness R42 ; Bilateral impacted cerumen H61.23 ; Right otitis media, unspecified chronicity, unspecified otitis media type H66.91 and Contact dermatitis, unspecified contact dermatitis type, unspecified trigger L25.9 [id number] [place] [phone] Feb, [facility] [id number] [place] [phone] Nov, Acute sinusitis J01.90 and Cough R05 [id number] [place] [phone] Sep, Sinusitis J32.9 [id number] [place] [phone] Aug, Leukocytosis D72.829 ; Acanthosis nigricans L83 ; Seizures R56.9 ; Bipolar disorder F31.9 and Cerebral palsy G80.9 [id number] [place] [phone] Aug, Abscess L02.91 and Seizures R56.9 [facility] [address] [facility] [id number] [place] [address] May, Encounter for immunization Z23 IMMUNIZATIONS No Known Immunizations SOCIAL HISTORY Never Assessed REASON FOR VISIT ADULT OUTREACH CLASS [facility] PLAN OF CARE Activity Details Follow Up NEXT MONTH Reason:ON SITE DENTAL EXAM VITAL SIGNS MEDICATIONS Medication Instructions Dosage Frequency Start Date End Date Duration Status Magnesium 400 MG 1 in the am 1 tabs qhs Active Melatonin 10 MG Active Trazodone HCl 100 MG Orally Once a day 2 tablets at bedtime 24h Active Nasonex 50 MCG/ACT Nasally Once a day 2 sprays in each nostril 24h Nov, 14 days Active Mupirocin 2 % Externally Three times a day as needed for skin infection 1 application to affected area Mar, Active Topamax 25 MG Orally Twice a day 1 tablet 12h Active Intuniv 4 MG Orally Once a day 1 tablet 24h Active Ranitidine HCl 150 MG Orally Twice a day 1/2 tablet 12h Active Vimpat 150 MG Orally Twice a day 2 tablet 12h Active Zyrtec Allergy 10 MG Active Diazepam 10 mg Rectal as needed for seizure, no more than 1 treatment per 5 days or 5/month as directed Mar, Active RESULTS No Results PROCEDURES Procedure Date Ordered Result Body Site PROPHYLAXIS - ADULT February 09, 2017 INSTRUCTIONS MEDICATIONS ADMINISTERED No Known Medications MEDICAL (GENERAL) HISTORY Type Description Date Medical History cerebral palsy Medical History bipolar disorder Medical History scoliosis Medical History epilepsy Surgical History Brain Surgery x 2 Surgical History Stimulator placed and removed for seizures Hospitalization History Surgery Hospitalization History Seizures multiple times
--- NOTE | 2017-11-13 12:14 | ED Cough/URI ---
General Chief Complaint: Cough/Cold/Flu Symptoms Stated Complaint: COUGH Nursing Triage Note: ARRIVED VIA AMB WITH MOM. MOM STATES SHE HAS HAD A COUGH FOR ABOUT A WEEK THAT IS NOT GETTING BETTER ON OTC MEDS. Source: patient, family (mother) Exam Limitations: physical impairment (patient is essentially non-verbal (h/o frontal lobectomy).) History of Present Illness Date Seen by Provider: Nov 13, 2017 Time Seen by Provider: 12:13 Initial Comments 22 yo female patient presents to the ED with c/o cough x1 wk. patient was seen by her PCP and told to use flonase and otc meds. denies improvement. mother reports patient does occasionally wheeze. Timing/Duration: week, getting worse Severity/Quality: productive cough Prior Episodes/Possible Cause: no prior episodes Modifying Factors: Worse With Coughing Allergies and Home Medications Allergies Coded Allergies: haloperidol (Unverified Allergy, Mild, 07/16/16) lorazepam (Verified Allergy, Unknown, 07/16/16) Home Medications Albuterol Sulfate 2.5 Mg/3 Ml Vial.neb, 2.5 MG IH Q4H PRN for SHORTNESS OF BREATH Prescribed by: DAMI LOCKHART on 11/13/17 1309 Azithromycin 250 Mg Tablet, 250 MG PO UD TAKE 2 TABLETS TODAY, THEN TAKE 1 TABLET DAILY FOR 4 MORE DAYS Prescribed by: DAMI LOCKHART on 11/13/17 1309 Benzonatate 200 Mg Capsule, 200 MG PO Q8H PRN for COUGH Prescribed by: DAMI LOCKHART on 11/13/17 1311 Cephalexin 500 Mg Tablet, 500 MG PO TID Prescribed by: WESTON HERNANDEZ on 07/17/16 0006 Diazepam 2.5 Mg Kit, 2.5 MG RC [id number] PRN for SEIZURE ACTIVITY Prescribed by: CHARLETTE FLOWERS on 03/26/16 1455 Guanfacine HCl 4 Mg Tab.er.24h, 4 MG PO DAILY, (Reported) Lacosamide 100 Mg Tablet, 300 MG PO BID, (Reported) Magnesium Oxide 500 Mg Capsule, 500 MG PO UD, (Reported) take 1/2 tabe in the morning am and 2 in hs Pyridoxine/Melatonin 1 Tab Tablet, 15 MG PO HS, (Reported) Ranitidine Hcl 150 Mg Tablet, 75 MG PO BID, (Reported) Terbinafine HCl 250 Mg Tablet, 250 MG PO DAILY Prescribed by: ELIGIO FATIMA on 02/11/16 0053 Topiramate 50 Mg Tablet, 25 MG PO BID, (Reported) Trazodone HCl 50 Mg Tablet, 200 MG PO HS, (Reported) Patient Home Medication List Home Medication List Reviewed: Yes Constitutional: No fever, malaise EENTM: No ear pain, No nose congestion, No throat pain Respiratory: see HPI, cough, No dyspnea on exertion, phlegm, No short of breath , No stridor, wheezing Cardiovascular: no symptoms reported Gastrointestinal: No abdominal pain, No constipation, No diarrhea, No loss of appetite, No nausea, No vomiting Genitourinary: no symptoms reported Musculoskeletal: no symptoms reported Skin: no symptoms reported Psychiatric/Neurological: No Symptoms Reported Other ROS per mother All Other Systems Reviewed Negative Unless Noted: Yes (Negative excepted noted.) Past Kjutlxi-Zzibpi-Hvorim Hx Patient Social History Alcohol Use: Denies Use Recreational Drug Use: No Smoking Status: Never a Smoker Recent Foreign Travel: No Contact w/Someone Who Travel: No Recent Infectious Disease Expo: No Recent Hopitalizations: Yes (MULTIPLE FOR SEIZURE DISORDER) Immunizations Up To Date Tetanus Booster (TDap): Less than 5yrs PED Vaccines UTD: Yes Date of Influenza Vaccine: May 28, 2016 Surgeries History of Surgeries: Yes (STIMULATOR IMPLANT,THEN DC'D,TEETH EXTRACTED, frontal lobectomy) Respiratory History of Respiratory Disorde: No Cardiovascular History of Cardiac Disorders: Yes (MILD MURMUR) Cardiac Disorders: Heart Murmur Neurological History of Neurological Disord: Yes (CP 2 DEFECT FRONT LOBE REMOVED) Neurological Disorders: Cerebral Palsy, Seizure Disorder Reproductive System : No Last Menstrual Period: Sep 15, 2017 Hx Reproductive Disorders: No Genitourinary History of Genitourinary Disor: No Gastrointestinal History of Gastrointestinal Di: No Musculoskeletal History of Musculoskeletal Dis: Yes (CEREBRAL PALSY) Endocrine History of Endocrine Disorders: No Cancer History of Cancer: No Psychosocial History of Psychiatric Problem: Yes (AUTISTIC) Behavioral Health Disorders: Bipolar Integumentary History of Skin or Integumenta: No Blood Transfusions History of Blood Disorders: No Reviewed Nursing Assessment Reviewed/Agree w Nursing PMH: Yes Family Medical History Significant Family History: No Pertinent Family Hx Physical Exam Vital Signs Vital Signs - First Documented 4/1/18 4/1/18 11:45 13:33 Temp 99.9 Pulse 108 Resp 18 B/P (MAP) 131/61 (84) Pulse Ox 96 O2 Delivery Room Air Capillary Refill : Less Than 3 Seconds General Appearance: WD/WN, no apparent distress HEENT: PERRL/EOMI, TMs normal, pharyngeal erythema, No tonsillar exudate Neck: non-tender, full range of motion, supple, normal inspection Respiratory: lungs clear, normal breath sounds, no respiratory distress, no accessory muscle use Cardiovascular: normal peripheral pulses, regular rate, rhythm, no edema, no murmur Gastrointestinal: normal bowel sounds, non tender, soft, no organomegaly Neurologic/Psychiatric: alert, normal mood/affect, oriented x 3 Skin: normal color, warm/dry Progress/Results/Core Measures Suspected Sepsis Recent Fever Within 48 Hours: No Infection Criteria Present: Suspected New Infection New/Unexplained Altered Menta: No Sepsis Screen: No Definite Risk Sepsis Diagnosis: SIRS Temperature:99.9 Pulse: 108 Respiratory Rate: 18 Blood Pressure 131 /61 Mean: 84 Results/Orders My Orders Orders - DAMI LOCKHART Chest Pa/Lat (2 View) (11/13/17 12:29) Ibuprofen Tablet (Motrin Tablet) (11/13/17 12:29) Benzonatate Capsule (Tessalon Perles) (11/13/17 12:30) Albuterol/Ipra Inhalation Soln (Duoneb I (11/13/17 13:15) Svn Sm Volume Nebulizer Rt-Rfs (11/13/17 13:06) Medications Given in ED Current Medications Medications Dose Ordered Sig/Ketan Route Start Time Stop Time Status Last Admin Dose Admin Albuterol/ Ipratropium 3 ml ONCE ONCE INH 11/13/17 13:15 11/13/17 13:16 DC 11/13/17 13:33 3 ML Benzonatate 200 mg ONCE ONCE PO 11/13/17 12:30 11/13/17 12:31 DC 11/13/17 12:43 200 MG Vital Signs/I&O Vital Sign - Last 12Hours 11/13/17 11/13/17 11/13/17 11:45 13:33 13:38 Temp 99.9 99.9 Pulse 108 108 Resp 18 18 B/P (MAP) 131/61 (84) 131/61 (84) Pulse Ox 96 96 96 O2 Delivery Room Air Room Air Capillary Refill : Less Than 3 Seconds Blood Pressure Mean: 84 Diagnostic Imaging Diagonstic Imaging: Xray Plain Films/CT/US/NM/MRI: chest Comments COMPARISON: 01/02/2017. FINDINGS: Frontal and lateral views of the chest demonstrate bronchovascular crowding at the lung bases probably from expiratory technique. Although, pneumonia not excluded. There is no pneumothorax or effusion. The heart is normal. Osseous structures are age appropriate. IMPRESSION: Bronchovascular crowding of the lung bases representing expiratory technique versus pneumonia. Dictated by: Dictated on workstation # [id number] Reviewed: Reviewed by Me Departure Communication (Admissions) Progress Notes diagnostic findings discussed with the patient and mother. plan for dsch to home. mother states they do have a nebulizer compressor at home. Impression Impression: Primary Impression: Pneumonia Qualified Codes: J18.9 - Pneumonia, unspecified organism Disposition: HOME, SELF-CARE Condition: Improved Departure-Patient Inst. Decision time for Depature: 12:59 Referrals: PAPA LANG MD (PCP/Family) Primary Care Physician Patient Instructions: Pneumonia, Adult (DC) Add. Discharge Instructions: All discharge instructions reviewed with patient and/or family. Voiced understanding. medications as instructed. Tylenol over the counter as directed for pain or fever. Motrin 600 mg by mouth every 8 hours as needed for pain. Cool humidifier if needed. Over the counter decongestants as instructed. Follow-up with your family practitioner as an outpatient for recheck. Return to the emergency department for worsened symptoms or any other concerns. Scripts Benzonatate (Benzonatate) 200 Mg Capsule 200 MG PO Q8H Y for COUGH, #30 CAP 0 Refills Prov: DAMI LOCKHART 11/13/17 Albuterol Sulfate (Albuterol Sulfate) 2.5 Mg/3 Ml Vial.neb 2.5 MG IH Q4H Y for SHORTNESS OF BREATH, #25 EA 0 Refills Prov: DAMI LOCKHART 11/13/17 Azithromycin (Zithromax) 250 Mg Tablet 250 MG PO UD, #6 TAB 0 Refills TAKE 2 TABLETS TODAY, THEN TAKE 1 TABLET DAILY FOR 4 MORE DAYS Prov: DAMI LOCKHART 11/13/17 DAMI LOCKHART Nov 13, 2017 12:13
[2017-11-13] MEDS ORDERED: IBUPROFEN 800 MG (MOTRIN) TAB PO STA (12:29)
[2017-11-13] MEDS ORDERED: BENZONATATE 100 MG (TESSALON) CAPSULE PO ONE (12:30)
--- NOTE | 2017-11-13 12:45 | Diagnostic Imaging Report ---
INDICATION: Cough. COMPARISON: 01/02/2017. FINDINGS: Frontal and lateral views of the chest demonstrate bronchovascular crowding at the lung bases probably from expiratory technique. Although, pneumonia not excluded. There is no pneumothorax or effusion. The heart is normal. Osseous structures are age appropriate. IMPRESSION: Bronchovascular crowding of the lung bases representing expiratory technique versus pneumonia. Dictated by: Dictated on workstation # [id number]
[2017-11-13] MEDS ORDERED: ALBU2.5V4 IH (13:09)
[2017-11-13] MEDS ORDERED: AZIT250T PO (13:09)
[2017-11-13] MEDS ORDERED: BENZ200C51 PO (13:11)
[2017-11-13] MEDS ORDERED: RT-ALBUTEROL/IPRATROPIUM 3 ML (DUONEB) VIAL INH ONE (13:15)
[2017-11-13 13:38] VITALS: BP 131/61
== END 2017-11-13 13:38 | disposition home or self-care (01) ==
LOC: EDUNIT# 11:28 → ER 11:29
DX: J18.9 Pneumonia, unspecified organism (principal); G40.909 Epilepsy, unspecified, not intractable, without status epilepticus; G80.9 Cerebral palsy, unspecified; F31.9 Bipolar disorder, unspecified; F84.0 Autistic disorder; Z88.8 Allergy status to other drugs, medicaments and biological substances
CPT/HCPCS: 71046; 94640

== ENCOUNTER 2018-02-03 17:13 | Emergency (ER) | payer MEDICARE, MEDICAID ==
[~2018-02-03] VITALS: Ht 152.4 cm; Wt 81.6 kg
[~2018-02-03 17:13] MED LIST changes: +ALBU2.5V4 IH; +AZIT250T PO; +BENZ200C51 PO
--- OUTSIDE RECORDS SUMMARY | 2018-02-03 17:19 | XMS REPORT ---
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 Active 92641125 Problem Bipolar disorder F31.9 Active 07079503 Problem Scoliosis M41.9 Active 641494011 Problem Cerebral palsy G80.9 Active 768399535 Problem Leukocytosis D72.829 Active 295028925 ALLERGIES Substance Reaction Event Type Date Status Haldol Unknown Drug Allergy Aug, Active Ativan Unknown Drug Allergy Aug, Active ENCOUNTERS Encounter Location Date Diagnosis [facility] [address] [id number] [id number] Nov, Dental examination Z01.20 [facility] [address] [id number] Aug, Encounter for dental exam and cleaning w/o abnormal findings Z01.20 [facility] [address] [id number] [id number] Aug, Dental examination Z01.20 [facility] [id number] [place] [phone] Jul, Dental examination Z01.20 [facility] [address] [id number] [id number] Jul, Dental examination Z01.20 [facility] [address] [facility] [id number] [id number] Apr, Encounter for dental examination and cleaning without abnormal findings Z01.[address] [facility] [address] [id number] [id number] Mar, Encounter for dental examination Z01.20 [facility] [id number] [place] [id number] 28 Jan, 2017 Encounter for dental examination and cleaning without abnormal findings Z01.20 [facility] [id number] [place] [phone]- [phone] 16 Mar, 2016 [facility] [address] [address] Mar, Seizures R56.9 ; Folliculitis L73.9 ; Appetite loss R63.0 and Weight loss R63.4 [place] [address] [address] 08 Mar, 2016 [facility] [place] [id number] [place] [phone] Feb, Dizziness R42 ; Bilateral impacted cerumen H61.23 ; Right otitis media, unspecified chronicity, unspecified otitis media type H66.91 and Contact dermatitis, unspecified contact dermatitis type, unspecified trigger L25.9 [place] [address] [place] [address] [id number] [place] [address] [phone] Feb, [facility] [place] [id number] [place] [phone] Nov, Acute sinusitis J01.90 and Cough R05 [place] [id number] [place] [address]31[address] 4[address] 17 Sep, 2015 Sinusitis J32.9 [place] [address] [place] [address] [id number] [place] [address] 88806- 7989 Aug, Leukocytosis D72.829 ; Acanthosis nigricans L83 ; Seizures R56.9 ; Bipolar disorder F31.9 and Cerebral palsy G80.9 [place] [address] [address] [id number] [place] [address]87[address] [phone] Aug, Abscess L02.91 and Seizures R56.9 [place] [address] [facility] [id number] [place] [address] May, Encounter for immunization Z23 IMMUNIZATIONS No Known Immunizations SOCIAL HISTORY Never Assessed REASON FOR VISIT PLAN OF CARE Activity Details Follow Up 6 Months Reason:NESTOR VITAL SIGNS MEDICATIONS Medication Instructions Dosage Frequency Start Date End Date Duration Status Gabapentin 300 MG Orally Once a day 1 capsule before bedtime 24h 30 day(s) Active Intuniv 4 MG Orally Once a day 1 tablet 24h Active Melatonin 10 MG Active Topamax 25 MG Orally Twice a day 1 tablet 12h Active Zyrtec Allergy 10 MG Active Mucinex 600 MG Orally Once a day 1 tablet as needed 24h 17 Sep, 2015 Active Nasonex 50 MCG/ACT Nasally Once a day 2 sprays in each nostril 24h Nov, 14 days Active Ranitidine HCl 150 MG Orally Twice a day 1/2 tablet 12h Active Magnesium 400 MG 1 in the am 1 tabs qhs Active Vimpat 150 MG Orally Twice a day 2 tablet 12h Active Ranitidine & Diet Manage Prod 150 MG Orally 2 times a day .5 in am and .5 in pm 12h Active Trazodone HCl 100 MG Orally Once a day 2 tablets at bedtime 24h 23 Jun, 2017 Active Mupirocin 2 % Externally Three times a day as needed for skin infection 1 application to affected area Mar, Active Diazepam 10 mg Rectal as needed for seizure, no more than 1 treatment per 5 days or 5/month as directed Mar, Active RESULTS No Results PROCEDURES Procedure Date Ordered Result Body Site PERIODIC ORAL EXAMINATION Aug 17, 2017 BITEWINGS - FOUR FILMS Aug 17, 2017 INSTRUCTIONS MEDICATIONS ADMINISTERED No Known Medications MEDICAL (GENERAL) HISTORY Type Description Date Medical History cerebral palsy Medical History bipolar disorder Medical History scoliosis Medical History epilepsy Surgical History Brain Surgery x 2 Surgical History Stimulator placed and removed for seizures Hospitalization History Surgery Hospitalization History Seizures multiple times
--- OUTSIDE RECORDS SUMMARY | 2018-02-03 17:19 | XMS REPORT | Clinical Summary ---
Author Author [facility] Organization [facility] Address Unknown Phone Unavailable Care Team Providers Care Career Coach Name Role Phone Marvin Peguero Unavailable Marce Martin MD Unavailable Yanick Strauss MD PCP Source Comments Some departments are not documenting in the electronic medical record. If you do not see the information that you expected, contact Release of Information in the Health Information Management department at [phone] for further assistance in locating additional records.[facility] Allergies Active Allergy Reactions Severity Noted Date Comments Haloperidol Lactate SWELLING High 03/25/2009 Facial swelling Lorazepam High 01/26/2005 Allergy recorded in SMS: ATIVAN~Reactions: SEIZURE Current Medications Prescription Sig. Disp. Refills Start End Date Status Date clonidine (CATAPRESS) 0.1 Take 0.5 Tabs by mouth 0 0 03/28/20 Active mg tablet Twice Daily. 09 ethotoin,+, (PEGANONE) Take 3 Tabs by mouth 0 0 03/28/20 Active 250 mg Tab Twice Daily. 09 trazodone (DESYREL) 150 Take 1 Tab by mouth At 0 0 03/28/20 Active mg tablet Bedtime Daily. 09 ranitidine (ZANTAC) 75 mg Take 75 mg by mouth twice Active tablet daily. MELATONIN PO Take 20 mg by mouth at Active bedtime daily. GUANFACINE HCL Take 4 mg by mouth daily. Active (GUANFACINE PO) gabapentin (NEURONTIN) Take 1 capsule by mouth 90 capsule 5 03/31/20 Active 300 mg capsule three times daily. 17 diazepam(+) (DIASTAT Insert or Apply 20 mg to 2 each 5 03/31/20 Active ACUDIAL) 12.5-15-17.5-20 rectal area as directed 17 mg rectal gel as Needed (seizure). topiramate (TOPAMAX) 25 Take 1 tablet by mouth 180 tablet 3 03/31/20 Active mg tablet twice daily. 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 Will start gabapentin 300 mg at night, slowly increasing to TID. Discussed possible weight gain and somnolence. Continue all other AEDs follow up in 6 months. 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, intractable, without status epilepticus (HCC) from Last 3 Months Social History Tobacco Use Types Packs/Day Years Used Date Never Assessed Sex Assigned at Date Recorded Not on file Last Filed Vital Signs Vital Sign Reading Time Taken Blood Pressure 116/74 03/28/2009 8:00 AM CDT Pulse 101 03/28/2009 8:00 AM CDT Temperature 36.7 C (98.1 F) 03/31/2017 3:11 PM CDT Respiratory Rate - - Oxygen Saturation - - Inhaled Oxygen - - Concentration Weight 71.2 kg (157 lb) 03/31/2017 3:11 PM CDT Height 148 cm (4' 10.27") 03/31/2017 3:11 PM CDT Body Mass Index 32.51 03/31/2017 3:11 PM CDT Plan of Treatment Health Maintenance Due Date Last Done Comments PHYSICAL (COMPREHENSIVE) 2002 EXAM HPV VACCINES (1 of 3 - 2006 Female 3 Dose Series) PERTUSSIS VACCINE 2006 HIV SCREENING 2010 TETANUS VACCINE 2012 CERVICAL CANCER SCREENING 2016 INFLUENZA VACCINE 05/15/2018 Results Not on filefrom Last 3 Months
--- OUTSIDE RECORDS SUMMARY | 2018-02-03 17:19 | XMS REPORT ---
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 Active 79885404 Problem Bipolar disorder F31.9 Active 23055896 Problem Scoliosis M41.9 Active 777419315 Problem Cerebral palsy G80.9 Active 025208493 Problem Leukocytosis D72.829 Active 263548965 ALLERGIES No Information ENCOUNTERS Encounter Location Date Diagnosis [facility] [id number] [place] [id number] Nov, Dental examination Z01.20 [facility] [id number] [place] [id number] Aug, Encounter for dental exam and cleaning w/o abnormal findings Z01.20 [facility] [address] [place] [id number] Aug, Dental examination Z01.20 [facility] [id number] [place] [address] [id number] Jul, Dental examination Z01.20 [facility] [address] [id number] [place] [address] [id number] Jul, Dental examination Z01.20 [facility] [id number] [place] [id number] Apr, Encounter for dental examination and cleaning without abnormal findings Z01.20 [facility] [address] [facility] [id number] [phone] 30 Aug, 2017 Encounter for dental examination Z01.20 [facility] [address] [place] [address] [phone] Jan, Encounter for dental examination and cleaning without abnormal findings Z01.20 [facility] [place] [id number] [place] [address] 28196- [phone] 16 Mar, 2016 [facility] [place] [address] [address] Mar, Seizures R56.9 ; Folliculitis L73.9 ; Appetite loss R63.0 and Weight loss R63.4 [place] [address] [address] Mar, [facility] [place] [address] [phone] 14 Feb, 2016 Dizziness R42 ; Bilateral impacted cerumen H61.23 ; Right otitis media, unspecified chronicity, unspecified otitis media type H66.91 and Contact dermatitis, unspecified contact dermatitis type, unspecified trigger L25.9 [place] [address] [place] [id number] [place] [address]- [phone] Feb, [facility] [address] [id number] [place] [phone] Nov, Acute sinusitis J01.90 and Cough R05 [place] [address] [address]- [address] 17 Sep, 2015 Sinusitis J32.9 [place] [address] [place] [place] [id number] [place] [address]30- [address] Aug, Leukocytosis D72.829 ; Acanthosis nigricans L83 ; Seizures R56.9 ; Bipolar disorder F31.9 and Cerebral palsy G80.9 [place] [address] [place] [id number] [place] [address] 34371- 4763 Aug, Abscess L02.91 and Seizures R56.9 [place] [address] [address] May, Encounter for immunization Z23 IMMUNIZATIONS No Known Immunizations SOCIAL HISTORY Never Assessed REASON FOR VISIT ADULT OUTREACH CLASS [facility] PLAN OF CARE Activity Details Follow Up Restorative and follow-up on #14 Reason: VITAL SIGNS MEDICATIONS No Known Medications RESULTS No Results PROCEDURES Procedure Date Ordered Result Body Site INTRAORL-PERIAPICAL EA ADD FILM Apr 13, 2017 RESIN COMPOS - 1 SURFACE POSTERIOR Apr 13, 2017 PERIODIC ORAL EXAMINATION Apr 13, 2017 INTRAORL-PERIAPICAL 1 FILM 14515 Apr 13, 2017 INTRAORL-PERIAPICAL EA ADD FILM Apr 13, 2017 INTRAORL-PERIAPICAL EA ADD FILM Apr 13, 2017 INTRAORL-PERIAPICAL EA ADD FILM Apr 13, 2017 INTRAORL-PERIAPICAL EA ADD FILM Apr 13, 2017 INTRAORL-PERIAPICAL EA ADD FILM Apr 13, 2017 INTRAORL-PERIAPICAL EA ADD FILM Apr 13, 2017 INTRAORL-PERIAPICAL EA ADD FILM Apr 13, 2017 INSTRUCTIONS MEDICATIONS ADMINISTERED No Known Medications MEDICAL (GENERAL) HISTORY Type Description Date Medical History cerebral palsy Medical History bipolar disorder Medical History scoliosis Medical History epilepsy Surgical History Brain Surgery x 2 Surgical History Stimulator placed and removed for seizures Hospitalization History Surgery Hospitalization History Seizures multiple times
--- OUTSIDE RECORDS SUMMARY | 2018-02-03 17:19 | XMS REPORT | Encounter Summary ---
Author Author [facility] Organization [facility] Address Unknown Phone Unavailable Care Team Providers Care Fire Fighter Airport Name Role Phone Marvin Peguero Unavailable Marce Martin MD Unavailable Yanick Strauss MD PCP Reason for Visit * Reason Comments Medication Refill Encounter Details Date Type Department Care Team Description 02/01/2018 Refill Comprehensive Epilepsy Hannah Brar MD [place] [address] [facility] [address] [place] [address] [place] [address] [place] [address] [phone] Social History Tobacco Use Types Packs/Day Years Used Date Never Assessed Sex Assigned at Date Recorded Not on file as of this encounter Miscellaneous Notes * Telephone Encounter - Desiree Goodman RN - 02/01/2018 3:40 PM CDT Will send a note to schedule pt for appointment. in this encounter Plan of Treatment Not on fileas of this encounter Visit Diagnoses Not on filein this encounter
--- OUTSIDE RECORDS SUMMARY | 2018-02-03 17:19 | XMS REPORT ---
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 54332915 Problem Bipolar disorder F31.9 Active 28477947 Problem Scoliosis M41.9 Active 415267617 Problem Cerebral palsy G80.9 Active 453934997 Problem Leukocytosis D72.829 Active 506653343 ALLERGIES Substance Reaction Event Type Date Status Haldol Unknown Drug Allergy 18 Jul, 2017 Active Ativan Unknown Drug Allergy Jul, Active ENCOUNTERS Encounter Location Date Diagnosis [facility] [id number] [place] [id number] Nov, Dental examination Z01.20 [facility] [address] [id number] [place] [id number] Aug, Encounter for dental exam and cleaning w/o abnormal findings Z01.20 [facility] [address] [id number] [phone] Aug, Dental examination Z01.20 [facility] [id number] [place] [address] [phone] Jul, Dental examination Z01.20 [facility] [id number] [place] [address] [id number] Jul, Dental examination Z01.20 [facility] [address] [id number] [phone] Apr, Encounter for dental examination and cleaning without abnormal findings Z01.20 [facility] [id number] [place] [phone] Mar, Encounter for dental examination Z01.20 [facility] [address] [place] [id number] 28 Jan, 2017 Encounter for dental examination and cleaning without abnormal findings Z01.20 [facility] [address] [place] [address] 09[address]- [phone] 16 Mar, 2016 [facility] [address] [place] [id number] [place] [address]- 3974 Mar, Seizures R56.9 ; Folliculitis L73.9 ; Appetite loss R63.0 and Weight loss R63.4 [place] [id number] [place] [address] 85[address]- [phone] 08 Mar, 2016 [facility] [place] [id number] [place] [phone] Feb, Dizziness R42 ; Bilateral impacted cerumen H61.23 ; Right otitis media, unspecified chronicity, unspecified otitis media type H66.91 and Contact dermatitis, unspecified contact dermatitis type, unspecified trigger L25.9 [place] [id number] [place] [address] 9[address]- [address] 14 Feb, 2016 [facility] [address] [place] [id number] [place] [phone] Nov, Acute sinusitis J01.90 and Cough R05 [place] [id number] [place] [address]67- [address] 17 Sep, 2015 Sinusitis J32.9 [address] [place] [address]- [address] Aug, Leukocytosis D72.829 ; Acanthosis nigricans L83 ; Seizures R56.9 ; Bipolar disorder F31.9 and Cerebral palsy G80.9 [address] [place] [address] 22162- 1530 Aug, Abscess L02.91 and Seizures R56.9 [facility] [address] [facility] [id number] [place] [address] May, Encounter for immunization Z23 IMMUNIZATIONS No Known Immunizations SOCIAL HISTORY Never Assessed REASON FOR VISIT PLAN OF CARE Activity Details Follow Up as directed Reason:Recall VITAL SIGNS MEDICATIONS Medication Instructions Dosage Frequency Start Date End Date Duration Status Melatonin 10 MG Active Ranitidine HCl 150 MG Orally Twice a day 1/2 tablet 12h Active Topamax 25 MG Orally Twice a day 1 tablet 12h Active Trazodone HCl 100 MG Orally Once a day 2 tablets at bedtime 24h Jun, Active Intuniv 4 MG Orally Once a day 1 tablet 24h Active Mupirocin 2 % Externally Three times a day as needed for skin infection 1 application to affected area Mar, Active Diazepam 10 mg Rectal as needed for seizure, no more than 1 treatment per 5 days or 5/month as directed Mar, Active Zyrtec Allergy 10 MG Active Vimpat 150 MG Orally Twice a day 2 tablet 12h Active Magnesium 400 MG 1 in the am 1 tabs qhs Active Mucinex 600 MG Orally Once a day 1 tablet as needed 24h 17 Sep, 2015 Active Gabapentin 300 MG Orally Once a day 1 capsule before bedtime 24h 30 day(s) Active Nasonex 50 MCG/ACT Nasally Once a day 2 sprays in each nostril 24h Nov, 14 days Active Ranitidine & Diet Manage Prod 150 MG Orally 2 times a day .5 in am and .5 in pm 12h Active RESULTS No Results PROCEDURES Procedure Date Ordered Result Body Site BITEWINGS - TWO FILMS Aug 01, 2017 AMALGAM-ONE SURFACE PRIMARY/PERM Aug 01, 2017 AMALGAM-TWO SURFACES PRIMARY/PERM Aug 01, 2017 AMALGAM-ONE SURFACE PRIMARY/PERM Aug 01, 2017 RESIN COMPOS - 1 SURFACE POSTERIOR Aug 01, 2017 INSTRUCTIONS MEDICATIONS ADMINISTERED No Known Medications MEDICAL (GENERAL) HISTORY Type Description Date Medical History cerebral palsy Medical History bipolar disorder Medical History scoliosis Medical History epilepsy Surgical History Brain Surgery x 2 Surgical History Stimulator placed and removed for seizures Hospitalization History Surgery Hospitalization History Seizures multiple times
--- OUTSIDE RECORDS SUMMARY | 2018-02-03 17:19 | XMS REPORT | Encounter Summary ---
Author Author [facility] Organization [facility] Address Unknown Phone Unavailable Care Team Providers Care Excellence Specialist Name Role Phone Marvin Peguero DO Unavailable Marce Martin MD Unavailable Yanick Strauss MD PCP Reason for Visit * Reason Comments Medication Refill Encounter Details Date Type Department Care Team Description 12/19/2017 Refill Comprehensive Epilepsy Marce Martin MD Localization-related Center [address] [facility] idiopathic epilepsy and [facility] [place] [address] [place] 2012 epileptic syndromes with [address] [place] [address] [place] [address] onset, intractable, without status epilepticus (HCC) Social History Tobacco Use Types Packs/Day Years Used Date Never Assessed Sex Assigned at Date Recorded Not on file as of this encounter Plan of Treatment Not on fileas of this encounter Visit Diagnoses Diagnosis 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
--- OUTSIDE RECORDS SUMMARY | 2018-02-03 17:20 | XMS REPORT ---
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 Active 79418822 Problem Bipolar disorder F31.9 Active 53098006 Problem Scoliosis M41.9 Active 296915899 Problem Cerebral palsy G80.9 Active 760706106 Problem Leukocytosis D72.829 Active 995514484 ALLERGIES Substance Reaction Event Type Date Status Haldol Unknown Drug Allergy Aug, Active Ativan Unknown Drug Allergy Aug, Active ENCOUNTERS Encounter Location Date Diagnosis [facility] [address] [phone] Nov, Dental examination Z01.20 [facility] [id number] [place] [address] [phone] Aug, Encounter for dental exam and cleaning w/o abnormal findings Z01.20 [facility] [address] [place] [address] [phone] Aug, Dental examination Z01.20 [facility] [address] [place] [address] [phone] Jul, Dental examination Z01.20 [facility] [address] [phone] Jul, Dental examination Z01.20 [facility] [address] [place] [phone] Apr, Encounter for dental examination and cleaning without abnormal findings Z01.[address] [id number] [id number] Mar, Encounter for dental examination Z01.20 [facility] [address] [place] [address] [id number] Jan, Encounter for dental examination and cleaning without abnormal findings Z01.20 [facility] [id number] [place] [address] [phone]- [phone] 16 Mar, 2016 [facility] [address] [phone] Mar, Seizures R56.9 ; Folliculitis L73.9 ; Appetite loss R63.0 and Weight loss R63.4 [place] [address] [phone] 08 Mar, 2016 [facility] [id number] [place] [phone] Feb, Dizziness R42 ; Bilateral impacted cerumen H61.23 ; Right otitis media, unspecified chronicity, unspecified otitis media type H66.91 and Contact dermatitis, unspecified contact dermatitis type, unspecified trigger L25.9 [place] [id number] [place] [address] [phone] Feb, [facility] [id number] [place] [phone] Nov, Acute sinusitis J01.90 and Cough R05 [place] [id number] [place] [address] [phone]- [phone] 17 Sep, 2015 Sinusitis J32.9 [place] [id number] [place] [address] [phone]- [phone] Aug, Leukocytosis D72.829 ; Acanthosis nigricans L83 ; Seizures R56.9 ; Bipolar disorder F31.9 and Cerebral palsy G80.9 [place] [id number] [place] [address] [phone]- [phone] Aug, Abscess L02.91 and Seizures R56.9 [place] [address] [phone] May, Encounter for immunization Z23 IMMUNIZATIONS No Known Immunizations SOCIAL HISTORY Never Assessed REASON FOR VISIT ADULT OUTREACH CLASS [facility] PLAN OF CARE Activity Details Follow Up 3 Months Reason:ON SITE RECALL VITAL SIGNS MEDICATIONS Medication Instructions Dosage Frequency Start Date End Date Duration Status Ranitidine & Diet Manage Prod 150 MG Orally 2 times a day .5 in am and .5 in pm 12h Unknown Vimpat 150 MG Orally Twice a day 2 tablet 12h Unknown Mupirocin 2 % Externally Three times a day as needed for skin infection 1 application to affected area Mar, Unknown Mucinex 600 MG Orally Once a day 1 tablet as needed 24h 17 Sep, 2015 Unknown Trazodone HCl 100 MG Orally Once a day 2 tablets at bedtime 24h Jun, Unknown Nasonex 50 MCG/ACT Nasally Once a day 2 sprays in each nostril 24h Nov, 14 days Unknown Zyrtec Allergy 10 MG Unknown Melatonin 10 MG Unknown Topamax 25 MG Orally Twice a day 1 tablet 12h Unknown Magnesium 400 MG 1 in the am 1 tabs qhs Unknown Intuniv 4 MG Orally Once a day 1 tablet 24h Unknown Gabapentin 300 MG Orally Once a day 1 capsule before bedtime 24h 30 day(s) Unknown Diazepam 10 mg Rectal as needed for seizure, no more than 1 treatment per 5 days or 5/month as directed Mar, Unknown Ranitidine HCl 150 MG Orally Twice a day 1/2 tablet 12h Unknown RESULTS No Results PROCEDURES Procedure Date Ordered Result Body Site PROPHYLAXIS - ADULT Aug 17, 2017 TOPICAL FLUORIDE VARNISH Aug 17, 2017 INSTRUCTIONS MEDICATIONS ADMINISTERED No Known Medications MEDICAL (GENERAL) HISTORY Type Description Date Medical History cerebral palsy Medical History bipolar disorder Medical History scoliosis Medical History epilepsy Surgical History Brain Surgery x 2 Surgical History Stimulator placed and removed for seizures Hospitalization History Surgery Hospitalization History Seizures multiple times
--- OUTSIDE RECORDS SUMMARY | 2018-02-03 17:21 | XMS REPORT ---
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 32616568 Problem Bipolar disorder F31.9 Active 59209804 Problem Scoliosis M41.9 Active 338479373 Problem Cerebral palsy G80.9 Active 020281261 Problem Leukocytosis D72.829 Active 317792718 ALLERGIES No Information ENCOUNTERS Encounter Location Date Diagnosis [facility] [address] [id number] [phone] Nov, Dental examination Z01.20 [facility] [address] [place] [phone] Aug, Encounter for dental exam and cleaning w/o abnormal findings Z01.20 [facility] [address] [id number] [phone] Aug, Dental examination Z01.20 [facility] [id number] [phone] Jul, Dental examination Z01.20 [facility] [address] [id number] [phone] Jul, Dental examination Z01.20 [facility] [id number] [place] [address] [id number] Apr, Encounter for dental examination and cleaning without abnormal findings Z01.20 [facility] [address] [id number] [phone] Mar, Encounter for dental examination Z01.20 [facility] [address] [phone] 28 Jan, 2017 Encounter for dental examination and cleaning without abnormal findings Z01.20 [place] [id number] [place] [address] [phone] 16 Mar, 2016 [place] [id number] [place] [address] [phone] Mar, Seizures R56.9 ; Folliculitis L73.9 ; Appetite loss R63.0 and Weight loss R63.4 [place] [id number] [place] [address] [phone] 08 Mar, 2016 [facility] [address] [phone] 14 Feb, 2016 Dizziness R42 ; Bilateral impacted cerumen H61.23 ; Right otitis media, unspecified chronicity, unspecified otitis media type H66.91 and Contact dermatitis, unspecified contact dermatitis type, unspecified trigger L25.9 [place] [id number] [place] [address] [phone] 14 Feb, 2016 [place] [id number] [place] [phone] Nov, Acute sinusitis J01.90 and Cough R05 [place] [id number] [place] [address] [phone] [phone] 17 Sep, 2015 Sinusitis J32.9 [place] [id number] [place] [address] [phone] Aug, Leukocytosis D72.829 ; Acanthosis nigricans L83 ; Seizures R56.9 ; Bipolar disorder F31.9 and Cerebral palsy G80.[address] [address] Aug, Abscess L02.91 and Seizures R56.9 [place] [address] [id number] [place] [address] [phone] May, Encounter for immunization Z23 IMMUNIZATIONS No Known Immunizations SOCIAL HISTORY Never Assessed REASON FOR VISIT ADULT OUTREACH CLASS [facility] PLAN OF CARE Activity Details Follow Up 3 Months/CORY Reason:ON SITE RECALL/RESTORATIVE VITAL SIGNS MEDICATIONS No Known Medications RESULTS No Results PROCEDURES Procedure Date Ordered Result Body Site PROPHYLAXIS - ADULT Apr 21, 2017 TOPICAL FLUORIDE VARNISH Apr 21, 2017 INSTRUCTIONS MEDICATIONS ADMINISTERED No Known Medications MEDICAL (GENERAL) HISTORY Type Description Date Medical History cerebral palsy Medical History bipolar disorder Medical History scoliosis Medical History epilepsy Surgical History Brain Surgery x 2 Surgical History Stimulator placed and removed for seizures Hospitalization History Surgery Hospitalization History Seizures multiple times
--- OUTSIDE RECORDS SUMMARY | 2018-02-03 17:21 | XMS REPORT ---
Author Author ZACHARIAHMONI CERVANTES Dinorah 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 [id number] [place] [phone] Nov, Dental examination Z01.[address] [facility] [id number] [place] [address] [phone] Aug, Encounter for dental exam and cleaning w/o abnormal findings Z01.[address] [facility] [address] [place] [address] [phone] Aug, Dental examination Z01.[address] [facility] [id number] [place] [address] [phone] Jul, Dental examination Z01.[address] [facility] [id number] [place] [address] [phone] Jul, Dental examination Z01.[address] [facility] [address] [facility] [id number] [place] [address] [phone] Apr, Encounter for dental examination and cleaning without abnormal findings Z01.[address] [id number] [phone] Mar, Encounter for dental examination Z01.[address] [facility] [address] [place] [address] [id number] 28 Jan, 2017 Encounter for dental examination and cleaning without abnormal findings Z01.20 [facility] [id number] [place] [address] [phone] 16 Mar, 2016 [facility] [address] [phone] Mar, Seizures R56.9 ; Folliculitis L73.9 ; Appetite loss R63.0 and Weight loss R63.4 [place] [address] [phone] 08 Mar, 2016 [facility] [address] [phone] Feb, Dizziness R42 ; Bilateral impacted cerumen H61.23 ; Right otitis media, unspecified chronicity, unspecified otitis media type H66.91 and Contact dermatitis, unspecified contact dermatitis type, unspecified trigger L25.9 [place] [id number] [place] [address] [phone] Feb, [facility] [id number] [place] [address] [phone] Nov, Acute sinusitis J01.90 and Cough R05 [place] [address] 42054- [phone] 17 Sep, 2015 Sinusitis J32.9 [place] [id number] [place] [address] [phone] Aug, Leukocytosis D72.829 ; Acanthosis nigricans L83 ; Seizures R56.9 ; Bipolar disorder F31.9 and Cerebral palsy G80.9 [place] [id number] [place] [address] [phone] Aug, Abscess L02.91 and Seizures R56.9 [place] [address] [place] [phone] May, Encounter for immunization Z23 IMMUNIZATIONS No Known Immunizations SOCIAL HISTORY Never Assessed REASON FOR VISIT [facility] PLAN OF CARE Activity Details Follow Up prn Reason:Restorations VITAL SIGNS Height 58 in 2017-07-22 MEDICATIONS Medication Instructions Dosage Frequency Start Date End Date Duration Status Gabapentin 300 MG Orally Once a day 1 capsule before bedtime 24h 30 day(s) Active Zyrtec Allergy 10 MG Active Melatonin 10 MG Active Topamax 25 MG Orally Twice a day 1 tablet 12h Active Ranitidine HCl 150 MG Orally Twice a day 1/2 tablet 12h Active Diazepam 10 mg Rectal as needed for seizure, no more than 1 treatment per 5 days or 5/month as directed Mar, Active Mupirocin 2 % Externally Three times a day as needed for skin infection 1 application to affected area Mar, Active Intuniv 4 MG Orally Once a day 1 tablet 24h Active Magnesium 400 MG 1 in the am 1 tabs qhs Active Vimpat 150 MG Orally Twice a day 2 tablet 12h Active Ranitidine & Diet Manage Prod 150 MG Orally 2 times a day .5 in am and .5 in pm 12h Active Trazodone HCl 100 MG Orally Once a day 2 tablets at bedtime 24h Jun, Active Nasonex 50 MCG/ACT Nasally Once a day 2 sprays in each nostril 24h Nov, 14 days Active Mucinex 600 MG Orally Once a day 1 tablet as needed 24h 17 Sep, 2015 Active RESULTS No Results PROCEDURES Procedure Date Ordered Result Body Site INTRAORL-PERIAPICAL 1 FILM 42529 Jul 22, 2017 RESIN COMPOS - 1 SURFACE POSTERIOR Jul 22, 2017 INSTRUCTIONS MEDICATIONS ADMINISTERED No Known Medications MEDICAL (GENERAL) HISTORY Type Description Date Medical History cerebral palsy Medical History bipolar disorder Medical History scoliosis Medical History epilepsy Surgical History Brain Surgery x 2 Surgical History Stimulator placed and removed for seizures Hospitalization History Surgery Hospitalization History Seizures multiple times
[2018-02-03] MEDS ORDERED: ZIPRASIDONE 20 MG INJ (GEODON) VIAL IM ONE ×2 (17:32→17:45)
[2018-02-03] MEDS ORDERED: WATER (STERILE) FOR INJECTION 20 ML ONE (17:32)
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
[2018-02-03 18:06] VITALS: BP 118/70
== END 2018-02-03 18:04 | disposition home or self-care (01) ==
LOC: EDUNIT# 17:13 → ER 17:15
DX: F91.1 Conduct disorder, childhood-onset type (principal); F29 Unspecified psychosis not due to a substance or known physiological condition; G40.909 Epilepsy, unspecified, not intractable, without status epilepticus; G80.9 Cerebral palsy, unspecified; F31.9 Bipolar disorder, unspecified; F84.0 Autistic disorder; Z90.89 Acquired absence of other organs; Z88.8 Allergy status to other drugs, medicaments and biological substances; Z79.51 Long term (current) use of inhaled steroids; Z87.820 Personal history of traumatic brain injury
CPT/HCPCS: 99284

== ENCOUNTER → 2018-03-30 | Outpatient (CLI) | payer MEDICARE, MEDICAID ==
[~2018-03-30] MED LIST changes: +TRAZ-189 PO; -TRAZ-28 PO
--- NOTE | 2018-03-30 17:20 | Diagnostic Imaging Report ---
PROCEDURE: MRI lumbar spine. TECHNIQUE: Multiplanar, multisequence MRI of the lumbar spine was performed without contrast. INDICATION: Back pain, left knee pain. FINDINGS: There are no prior MRI examinations available for comparison. The plain examination of the lumbar spine performed on 06/16/2015 failed to show any sign of an acute bony abnormality. The T2 sagittal images show the vertebral body heights and alignment to be within normal limits. There is mild narrowing of the disc space at L5-S1, and the disc at this level is desiccated. There is a disc bulge centrally at this level, which effaces the ventral aspect of the thecal sac and narrows the AP diameter to approximately 7.8 mm. The thecal sac itself is somewhat slender, and even though the AP dimension of the thecal sac measures less than a centimeter, I do feel that there is only borderline central stenosis at this level. There is moderate narrowing of the neural foramen on the right and mild narrowing of the neural foramen on the left. There does not appear to be any significant nerve root encroachment. The remainder of the lumbar spine is unremarkable for spinal stenosis or nerve root encroachment. There is no abnormal signal arising from the cord or the vertebral bodies to indicate an acute abnormality. Incidental note is made of block vertebrae formation at the T10-11 level. There is also a disc bulge centrally at T11-12, but there is no significant central stenosis or neural foraminal narrowing noted. There is no sign of a paraspinal mass. IMPRESSION: 1. There is moderate degenerative disc disease at L5-S1. The disc bulge and the small size of the thecal sac at this level does result in borderline stenosis. There is also moderate narrowing of the neural foramen on the right at this level. 2. The remainder of the lumbar spine is unremarkable for spinal stenosis or nerve root encroachment. 3. There is block vertebrae formation at T10-11 and degenerative disc disease at T11-12. There is no significant central stenosis at this level. 4. There is no evidence for an acute bony abnormality or for a cord lesion. Dictated by: Dictated on workstation # [id number]
== END ==
LOC: RAD 16:04
PROVIDERS: ATTEND Physician Assistant
DX: M51.37 Other intervertebral disc degeneration, lumbosacral region (principal); M51.27 Other intervertebral disc displacement, lumbosacral region; M51.34 Other intervertebral disc degeneration, thoracic region; M99.73 Connective tissue and disc stenosis of intervertebral foramina of lumbar region
CPT/HCPCS: 72148

== ENCOUNTER 2018-05-12 12:47 | Outpatient (RCR) | payer MEDICARE, MEDICAID | END 2018-05-14 | disposition home or self-care (01) | PROVIDERS: ATTEND Orthopaedic Surgery | DX: M22.2X1 Patellofemoral disorders, right knee (principal); M22.2X2 Patellofemoral disorders, left knee; G80.9 Cerebral palsy, unspecified ==

== ENCOUNTER 2018-06-08 14:02 | Outpatient (RCR) | payer MEDICARE, MEDICAID | END 2018-06-08 14:24 | disposition home or self-care (01) | PROVIDERS: ATTEND Orthopaedic Surgery | DX: M22.2X1 Patellofemoral disorders, right knee (principal); M22.2X2 Patellofemoral disorders, left knee; G80.9 Cerebral palsy, unspecified ==

== ENCOUNTER 2018-08-04 20:04 | Emergency (ER) | payer MEDICARE, MEDICAID ==
[~2018-08-04] VITALS: Ht 152.4 cm; Wt 70.8 kg
--- OUTSIDE RECORDS SUMMARY | 2018-08-04 20:11 | XMS REPORT ---
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 39819153 Problem Bipolar disorder F31.9 Active 89313816 Problem Scoliosis M41.9 Active 136810438 Problem Cerebral palsy G80.9 Active 103077896 Problem Leukocytosis D72.829 Active 430268620 ALLERGIES Substance Reaction Event Type Date Status Haldol Unknown Drug Allergy Mar, Active Ativan Unknown Drug Allergy Mar, Active ENCOUNTERS Encounter Location Date Diagnosis [facility] [address] [address] Mar, Encounter for screening, unspecified Z13.9 [facility] [id number] [place] [address] [id number] Mar, Dental examination Z01.20 [facility] [id number] [place] [address] [id number] Nov, Dental examination Z01.20 [facility] [id number] [place] [address] [id number] Aug, Encounter for dental exam and cleaning w/o abnormal findings Z01.20 [facility] [address] [id number] Aug, Dental examination Z01.20 [facility] [id number] [place] [address] [id number] Jul, Dental examination Z01.20 [facility] [address] [place] [id number] [phone] Jul, 2017 Dental examination Z01.20 [facility] [address] [facility] [id number] [id number] Apr, Encounter for dental examination and cleaning without abnormal findings Z01.20 [facility] [address] [id number] [id number] 30 Mar, 2017 Encounter for dental examination Z01.20 [facility] [address] [facility] [id number] [id number] Jan, Encounter for dental examination and cleaning without abnormal findings Z01.20 [place] [address] [place] [address]- [phone] Mar, [place] [id number] [place] [address] 96[address] 8329 Mar, Seizures R56.9 ; Folliculitis L73.9 ; Appetite loss R63.0 and Weight loss R63.4 [place] [address] [place] [address]65- 5697 Mar, [facility] [id number] [place] [address] -[address]267 Feb, Dizziness R42 ; Bilateral impacted cerumen H61.23 ; Right otitis media, unspecified chronicity, unspecified otitis media type H66.91 and Contact dermatitis, unspecified contact dermatitis type, unspecified trigger L25.9 [place] [address] [place] [address] 80162- 2131 Feb, [facility] [address] [place] [address]66 -[phone] Nov, Acute sinusitis J01.90 and Cough R05 [place] [id number] [place] [address] 96998- 1527 17 Sep, 2015 Sinusitis J32.9 [place] [id number] [place] [address] 38396[address] 9034 Aug, Leukocytosis D72.829 ; Acanthosis nigricans L83 ; Seizures R56.9 ; Bipolar disorder F31.9 and Cerebral palsy G80.9 [facility] [address] [facility] [id number] [place] [address] Aug, Abscess L02.91 and Seizures R56.9 [facility] [address] [facility] [id number] [address] May, Encounter for immunization Z23 IMMUNIZATIONS No Known Immunizations SOCIAL HISTORY Never Assessed REASON FOR VISIT ADULT OUTREACH CLASS [facility] PLAN OF CARE Activity Details Follow Up prn Reason:ON SITE RECALL VITAL SIGNS MEDICATIONS Medication Instructions Dosage Frequency Start Date End Date Duration Status Topamax 25 MG Orally Twice a day 1 tablet 12h Active Intuniv 4 MG Orally Once a day 1 tablet 24h Active Trazodone HCl 100 MG Orally Once a day 2 tablets at bedtime 24h Jun, Active Melatonin 10 MG Active Ranitidine HCl 150 MG Orally Twice a day 1/2 tablet 12h Active Mucinex 600 MG Orally Once a day 1 tablet as needed 24h 17 Sep, 2015 Active Mupirocin 2 % Externally Three times a day as needed for skin infection 1 application to affected area Mar, Active Vimpat 150 MG Orally Twice a day 2 tablet 12h Active Zyrtec Allergy 10 MG Active Nasonex 50 MCG/ACT Nasally Once a day 2 sprays in each nostril 24h Nov, 14 days Active Gabapentin 300 MG Orally Once a day 1 capsule before bedtime 24h 30 day(s) Active Magnesium 400 MG 1 in the am 1 tabs qhs Active Ranitidine & Diet Manage Prod 150 MG Orally 2 times a day .5 in am and .5 in pm 12h Active Diazepam 10 mg Rectal as needed for seizure, no more than 1 treatment per 5 days or 5/month as directed Mar, Active RESULTS No Results PROCEDURES Procedure Date Ordered Result Body Site PERIODIC ORAL EXAMINATION Mar 22, 2018 INTRAORL-PERIAPICAL 1 FILM [id number] Mar 22, 2018 TOPICAL FLUORIDE VARNISH Mar 22, 2018 PROPHYLAXIS - ADULT Mar 22, 2018 INTRAORL-PERIAPICAL EA ADD FILM Mar 22, 2018 INTRAORL-PERIAPICAL EA ADD FILM Mar 22, 2018 INTRAORL-PERIAPICAL EA ADD FILM Mar 22, 2018 INTRAORL-PERIAPICAL EA ADD FILM Mar 22, 2018 INSTRUCTIONS MEDICATIONS ADMINISTERED No Known Medications MEDICAL (GENERAL) HISTORY Type Description Date Medical History cerebral palsy Medical History bipolar disorder Medical History scoliosis Medical History epilepsy Surgical History Brain Surgery x 2 Surgical History Stimulator placed and removed for seizures Hospitalization History Surgery Hospitalization History Seizures multiple times
--- OUTSIDE RECORDS SUMMARY | 2018-08-04 20:11 | XMS REPORT | Clinical Summary ---
Author Author [facility] Address Unknown Phone Unavailable Care Team Providers Care Program Dir Name Role Phone Marvin Peguero Unavailable Marce Martin MD Unavailable Yanick Strauss MD PCP Source Comments Some departments are not documenting in the electronic medical record. If you do not see the information that you expected, contact Release of Information in the Health Information Management department at [phone] for further assistance in locating additional records.[facility] Allergies Comments Active Allergy Reactions Severity Noted Date Facial swelling Haloperidol Lactate SWELLING High 03/25/2009 Allergy recorded in SMS: ATIVAN~Reactions: SEIZURE Lorazepam High 01/26/2005 Medications End Date Status Medication Sig Dispensed Refills Start Date Active trazodone (DESYREL) 150 Take 1 Tab by 0 0 03/28/200 mg tablet mouth At 9 Bedtime Daily. Active ranitidine (ZANTAC) 75 mg Take 75 mg by 0 tablet mouth twice daily. Active MELATONIN PO Take 20 mg by 0 mouth at bedtime daily. Active norethindrone-ethinyl Take 1 tablet 0 estradiol(+) (LOESTRIN by mouth 09/03 (21)) tablet daily. Active guanfacine ER(+) Take 4 mg by 0 (INTUNIV) 4 mg tablet mouth daily. Active topiramate (TOPAMAX) 25 Take 1 tablet 180 tablet 3 03/16/201 mg tablet by mouth 8 twice daily. Active lacosamide (VIMPAT) 200 Take 1 tablet 60 tablet 1 03/16/201 mg tabIndications: by mouth 8 Localization-related twice daily. idiopathic epilepsy and epileptic syndromes with seizures of localized onset, intractable, without status epilepticus (HCC) Active lacosamide (VIMPAT) 50 mg Take 1 tablet 180 tablet 1 tablet by mouth 8 twice daily. Active gabapentin (NEURONTIN) Take 1 90 capsule 3 300 mg capsule capsule by 8 mouth at bedtime daily. Active diazepam(+) (DIASTAT Insert or 2 each 5 ACUDIAL) 12.5-15-17.5-20 Apply 20 mg 8 mg rectal gel to rectal area as directed as Needed (seizure). Active Problems Problem Noted Date Partial idiopathic epilepsy with seizures of localized onset 03/31/2017 Last Assessment & Plan: Seizures have improved since last visit. Only one convulsion in August- diastat was used. Low dose gabapentin seems to be helpful with the seizures- will continue Continue low dose topamax and vimpat. follow up in about 6 months. Intellectual functioning disability 03/31/2017 Intermittent explosive disorder 03/31/2017 Mood disorder 03/25/2009 Overview: [place] I: mood disorder nos, h/o autism [place] II: h/o MR [place] III: h/o intractable seizures, h/o cerebral palsy, s/p left hemispherotomy [place] IV: chronic mental illness, poor coping skills [place] V: GAF (discharge)=30-35 Family History Relation Name Status Comments Father Alive Mother Alive Social History Date Tobacco Use Types Packs/Day Years Used Never Smoker Smokeless Tobacco: Never Used Alcohol Use Drinks/Week oz/Week Comments No Sex Assigned at Date Recorded Not on file Industry Job Start Date Occupation Not on file Not on file Not on file Travel End Travel History Travel Start No recent travel history available. Last Filed Vital Signs Time Taken Vital Sign Reading 03/16/2018 10:43 AM CDT Blood Pressure 131/67 03/16/2018 10:43 AM CDT Pulse 64 03/16/2018 10:43 AM CDT Temperature 36.9 C (98.4 F) - Respiratory Rate - - Oxygen Saturation - - Inhaled Oxygen - Concentration 03/16/2018 10:43 AM CDT Weight 76.7 kg (169 lb) 03/16/2018 10:43 AM CDT Height 149.9 cm (4' 11") 03/16/2018 10:43 AM CDT Body Mass Index 34.13 Plan of Treatment Health Maintenance Due Date Last Done Comments PHYSICAL (COMPREHENSIVE) 2002 EXAM HPV VACCINES (1 of 3 - 2006 Female 3-dose series) HIV SCREENING 2010 DTAP/TDAP VACCINES (1 - 2013 Tdap) CERVICAL CANCER SCREENING 2016 INFLUENZA VACCINE 03/15/2018 05/02/2014, 05/01/2013, 05/02/2012, Additional history exists Results Not on filefrom Last 3 Months Insurance Payer Benefit Subscriber ID Type Phone Address Plan / Group MEDICARE MEDICARE xxxxxxxxxxx Medicare PART A AND B MEDICARE MEDICARE xxxxxxxxxxx Medicare PART A AND B [employer] [facility] xxxxxxxxxxx Medicaid Advance Directives Patient has advance care planning documents on file. For more information, please contact: [facility] [address] [place] [address]
--- OUTSIDE RECORDS SUMMARY | 2018-08-04 20:11 | XMS REPORT ---
Author Author JERAMIE VANG [facility] Address [address] [place] [address] Phone Unavailable Care Team Providers Care Crook Operator Name Role Phone JERAMIE VANG Unavailable Unavailable PROBLEMS Type Condition ICD9-CM Code DSA36-JE Code Onset Dates Condition Status SNOMED Code Problem Seizures R56.9 Active 47041140 Problem Dizziness R42 Active 479681784 Problem Granuloma annulare L92.0 Active 54395521 Problem Bipolar disorder F31.9 Active 34398016 Problem Scoliosis M41.9 Active 247507719 Problem Cerebral palsy G80.9 Active 248050094 Problem Leukocytosis D72.829 Active 162877513 ALLERGIES No Information ENCOUNTERS Encounter Location Date Diagnosis [facility] [address] [place] [phone] Mar, Encounter for screening, unspecified Z13.9 [facility] [id number] [place] [address] [phone] Mar, Dental examination Z01.20 [facility] [id number] [place] [address] [phone] Nov, Dental examination Z01.20 [facility] [id number] [place] [address] [id number] Aug, Encounter for dental exam and cleaning w/o abnormal findings Z01.20 [facility] [id number] [place] [address] [id number] Aug, Dental examination Z01.20 [facility] [id number] [place] [address] [id number] Jul, Dental examination Z01.20 [facility] [id number] [place] [address] [id number] Jul, Dental examination Z01.20 [facility] [id number] [place] [address] [id number] Apr, Encounter for dental examination and cleaning without abnormal findings Z01.20 [facility] [address] [id number] [phone] Mar, Encounter for dental examination Z01.20 [facility] [address] [facility] [id number] [phone] Jan, Encounter for dental examination and cleaning without abnormal findings Z01.20 [place] [address] [place] [phone] Mar, [place] [id number] [place] [address] [phone]- 1073 Mar, Seizures R56.9 ; Folliculitis L73.9 ; Appetite loss R63.0 and Weight loss R63.4 [address] [id number] [place] [address] [phone]- [phone] Mar, [facility] [place] [address] [place] [phone] -[phone] Feb, Dizziness R42 ; Bilateral impacted cerumen H61.23 ; Right otitis media, unspecified chronicity, unspecified otitis media type H66.91 and Contact dermatitis, unspecified contact dermatitis type, unspecified trigger L25.9 [place] [address] [id number] [place] [address]- 8020 Feb, [facility] [place] [address] [place] [phone] -[phone] Nov, Acute sinusitis J01.90 and Cough R05 [id number] [place] [address] 35255- 6654 Sep, Sinusitis J32.9 [place] [id number] [place] [address] 25567- 8343 Aug, Leukocytosis D72.829 ; Acanthosis nigricans L83 ; Seizures R56.9 ; Bipolar disorder F31.9 and Cerebral palsy G80.9 [place] [address] [facility] [id number] [place] [id number] Aug, Abscess L02.91 and Seizures R56.9 [facility] [address] [facility] [id number] [place] [address] May, Encounter for immunization Z23 IMMUNIZATIONS No Known Immunizations SOCIAL HISTORY Never Assessed REASON FOR VISIT PLAN OF CARE Activity Details Follow Up 3 Months Reason:on site recall VITAL SIGNS MEDICATIONS Unknown Medications RESULTS No Results PROCEDURES Procedure Date Ordered Result Body Site SCREENING OF A PATIENT Apr 11, 2018 Billing Notes on claim Apr 07, 2018 INSTRUCTIONS MEDICATIONS ADMINISTERED No Known Medications MEDICAL (GENERAL) HISTORY Type Description Date Medical History cerebral palsy Medical History bipolar disorder Medical History scoliosis Medical History epilepsy Surgical History Brain Surgery x 2 Surgical History Stimulator placed and removed for seizures Hospitalization History Surgery Hospitalization History Seizures multiple times
--- OUTSIDE RECORDS SUMMARY | 2018-08-04 20:11 | XMS REPORT ---
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 Active 03338823 Problem Bipolar disorder F31.9 Active 95395706 Problem Scoliosis M41.9 Active 382053529 Problem Cerebral palsy G80.9 Active 389777220 Problem Leukocytosis D72.829 Active 319470600 ALLERGIES Substance Reaction Event Type Date Status Haldol Unknown Drug Allergy Jun, Active Ativan Unknown Drug Allergy Jun, Active ENCOUNTERS Encounter Location Date Diagnosis [facility] [id number] [place] [address] [phone] Jun, Encounter for prophylactic fluoride administration Z29.3 [facility] [id number] [place] [address] [phone]- [phone] Mar, Encounter for screening, unspecified Z13.9 [facility] [id number] [place] [address] [id number] Mar, Dental examination Z01.20 [facility] [id number] [place] [address] [phone] Nov, Dental examination Z01.20 [facility] [id number] [place] [address] [id number] Aug, Encounter for dental exam and cleaning w/o abnormal findings Z01.20 [facility] [id number] [place] [address] [phone] Aug, Dental examination Z01.20 [facility] [id number] [place] [address] [id number] Jul, Dental examination Z01.20 [facility] [address] [facility] [id number] [phone] Jul, Dental examination Z01.20 [facility] [address] [phone] Apr, Encounter for dental examination and cleaning without abnormal findings Z01.[address] [id number] [phone] Mar, Encounter for dental examination Z01.20 [facility] [address] [facility] [id number] [phone] Jan, Encounter for dental examination and cleaning without abnormal findings Z01.20 [place] [id number] [place] [address] [phone] Mar, [place] [id number] [place] [address] 93704- 8884 Mar, Seizures R56.9 ; Folliculitis L73.9 ; Appetite loss R63.0 and Weight loss R63.4 [place] [id number] [place] [address]012- 4392 Mar, [facility] [id number] [place] [address] 39952 -[phone] Feb, Dizziness R42 ; Bilateral impacted cerumen H61.23 ; Right otitis media, unspecified chronicity, unspecified otitis media type H66.91 and Contact dermatitis, unspecified contact dermatitis type, unspecified trigger L25.9 [facility] [address] [place] [address]28- 4889 Feb, [facility] [id number] [place] [address] [phone] -[phone] Nov, Acute sinusitis J01.90 and Cough R05 [place] [id number] [place] [address] 71144- 7167 17 Sep, 2015 Sinusitis J32.9 [place] [address] [address] Aug, Leukocytosis D72.829 ; Acanthosis nigricans L83 ; Seizures R56.9 ; Bipolar disorder F31.9 and Cerebral palsy G80.9 [place] [address] [facility] [id number], [place] [address] Aug, Abscess L02.91 and Seizures R56.9 [place] [address] [facility] [id number], [place] [address] May, Encounter for immunization Z23 IMMUNIZATIONS No Known Immunizations SOCIAL HISTORY Never Assessed REASON FOR VISIT PLAN OF CARE Activity Details Follow Up 3 Months Reason:on site recall VITAL SIGNS MEDICATIONS Medication Instructions Dosage Frequency Start Date End Date Duration Status Mucinex 600 MG Orally Once a day 1 tablet as needed 24h Sep, Active Vimpat 150 MG Orally Twice a day 2 tablet 12h Active Mupirocin 2 % Externally Three times a day as needed for skin infection 1 application to affected area Mar, Active Ranitidine & Diet Manage Prod 150 MG Orally 2 times a day 0.5 in am and 0.5 in pm 12h Active Magnesium 400 MG 1 in the am 1 tabs qhs Active Zyrtec Allergy 10 MG Active Diazepam 10 mg Rectal as needed for seizure, no more than 1 treatment per 5 days or 5/month as directed Mar, Active Topamax 25 MG Orally Twice a day 1 tablet 12h Active Melatonin 10 MG Active Trazodone HCl 100 MG Orally Once a day 2 tablets at bedtime 24h Jun, Active Ranitidine HCl 150 MG Orally Twice a day 1/2 tablet 12h Active Gabapentin 300 MG Orally Once a day 1 capsule before bedtime 24h 30 day(s) Active Nasonex 50 MCG/ACT Nasally Once a day 2 sprays in each nostril 24h Nov, 14 days Active Intuniv 4 MG Orally Once a day 1 tablet 24h Active RESULTS No Results PROCEDURES Procedure Date Ordered Result Body Site PROPHYLAXIS - ADULT 2018 TOPICAL FLUORIDE VARNISH 2018 INSTRUCTIONS MEDICATIONS ADMINISTERED No Known Medications MEDICAL (GENERAL) HISTORY Type Description Date Medical History cerebral palsy Medical History bipolar disorder Medical History scoliosis Medical History epilepsy Surgical History Brain Surgery x 2 Surgical History Stimulator placed and removed for seizures Hospitalization History Surgery Hospitalization History Seizures multiple times
--- OUTSIDE RECORDS SUMMARY | 2018-08-04 20:12 | XMS REPORT ---
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 Active 05254330 Problem Bipolar disorder F31.9 Active 61846322 Problem Scoliosis M41.9 Active 401967782 Problem Cerebral palsy G80.9 Active 958117335 Problem Leukocytosis D72.829 Active 451577225 ALLERGIES Substance Reaction Event Type Date Status Haldol Unknown Drug Allergy Nov, Active Ativan Unknown Drug Allergy Nov, Active ENCOUNTERS Encounter Location Date Diagnosis [facility] [address] [facility] [address] [id number] [id number] Mar, [facility] [id number] [place] [id number] Nov, Dental examination Z01.20 [facility] [id number] [place] [id number] Aug, Encounter for dental exam and cleaning w/o abnormal findings Z01.20 [facility] [id number] [place] [id number] Aug, Dental examination Z01.20 [facility] [id number] [place] [id number] Jul, Dental examination Z01.20 [facility] [address] [place] [id number] Jul, Dental examination Z01.20 [facility] [address] [place] [id number] Apr, Encounter for dental examination and cleaning without abnormal findings Z01.20 [facility] [place] [address] [id number] [id number] Mar, Encounter for dental examination Z01.20 [facility] [address] [id number] Jan, Encounter for dental examination and cleaning without abnormal findings Z01.20 [place] [id number] [place] [phone] Mar, [place] [address] [phone] Mar, Seizures R56.9 ; Folliculitis L73.9 ; Appetite loss R63.0 and Weight loss R63.4 [place] [id number] [place] [phone] Mar, [facility] [address] [phone] Feb, Dizziness R42 ; Bilateral impacted cerumen H61.23 ; Right otitis media, unspecified chronicity, unspecified otitis media type H66.91 and Contact dermatitis, unspecified contact dermatitis type, unspecified trigger L25.9 [place] [id number] [place] [phone] Feb, [facility] [place] [id number] [place] [phone] Nov, Acute sinusitis J01.90 and Cough R05 [place] [id number] [place] [phone] Sep, Sinusitis J32.[address] [address] Aug, Leukocytosis D72.829 ; Acanthosis nigricans L83 ; Seizures R56.9 ; Bipolar disorder F31.9 and Cerebral palsy G80.[address] [address] Aug, Abscess L02.91 and Seizures R56.9 [facility] [address] [facility] [id number] [place] [address] May, Encounter for immunization Z23 IMMUNIZATIONS No Known Immunizations SOCIAL HISTORY Never Assessed REASON FOR VISIT PLAN OF CARE Activity Details Follow Up prn Reason: VITAL SIGNS MEDICATIONS Medication Instructions Dosage Frequency Start Date End Date Duration Status Intuniv 4 MG Orally Once a day 1 tablet 24h Active Mucinex 600 MG Orally Once a day 1 tablet as needed 24h 17 Sep, 2015 Active Zyrtec Allergy 10 MG Active Vimpat 150 MG Orally Twice a day 2 tablet 12h Active Nasonex 50 MCG/ACT Nasally Once a day 2 sprays in each nostril 24h Nov, 14 days Active Melatonin 10 MG Active Trazodone HCl 100 MG Orally Once a day 2 tablets at bedtime 24h Jun, Active Diazepam 10 mg Rectal as needed for seizure, no more than 1 treatment per 5 days or 5/month as directed Mar, Active Ranitidine & Diet Manage Prod 150 MG Orally 2 times a day .5 in am and .5 in pm 12h Active Mupirocin 2 % Externally Three times a day as needed for skin infection 1 application to affected area Mar, Active Gabapentin 300 MG Orally Once a day 1 capsule before bedtime 24h 30 day(s) Active Ranitidine HCl 150 MG Orally Twice a day 1/2 tablet 12h Active Magnesium 400 MG 1 in the am 1 tabs qhs Active Topamax 25 MG Orally Twice a day 1 tablet 12h Active RESULTS No Results PROCEDURES Procedure Date Ordered Result Body Site PROPHYLAXIS - ADULT November 30, 2017 TOPICAL FLUORIDE VARNISH November 30, 2017 INSTRUCTIONS MEDICATIONS ADMINISTERED No Known Medications MEDICAL (GENERAL) HISTORY Type Description Date Medical History cerebral palsy Medical History bipolar disorder Medical History scoliosis Medical History epilepsy Surgical History Brain Surgery x 2 Surgical History Stimulator placed and removed for seizures Hospitalization History Surgery Hospitalization History Seizures multiple times
--- OUTSIDE RECORDS SUMMARY | 2018-08-04 20:18 | XMS REPORT | Continuity of Care Document ---
Author Author [facility] Organization [facility] Address Unknown Phone Unavailable Allergies Active Description Code Type Severity Reaction Onset Reported/Identified Relationship to Patient Clinical Status Yes ATIVAN MODERATE OTHER Yes HALDOL SEVERE ANAPHYLACTIC SHOCK Yes haloperidol [id number] Drug Allergy Mild N/A 07/16/2016 Yes lorazepam [id number] Drug Allergy Unknown N/A 07/16/2016 Medications There is no data. Problems Date Dx Coded Attending Type Code Diagnosis Diagnosed By 07/14/1423 DAR ZIEGLER, YULI Tolliver Ot G80.9 CEREBRAL PALSY, UNSPECIFIED 07/14/1423 DAR ZIEGLER, YULI Tolliver Ot M22.2X1 PATELLOFEMORAL DISORDERS, RIGHT KNEE 07/14/1423 DAR ZIEGLER, YULI Tolliver Ot M22.2X2 PATELLOFEMORAL DISORDERS, LEFT KNEE 02/01/2010 Ot 564.00 01/30/2011 Ot 813.44 FX [...] 342.10 SPASTIC HEMIPLEGIA HEMIPARESIS AFF UNS 03/13/2013 ENRIQUE GERBER MD Ot V57.1 PHYSICAL THERAPY NEC 08/14/2013 TRAVIS SOLORZANO MD Ot 462 ACUTE PHARYNGITIS 08/14/2013 TRAVIS SOLORZANO MD Ot 599.0 URIN TRACT INFECTION NOS 08/14/2013 TRAVIS SOLORZANO MD Ot 780.96 GENERALIZED PAIN 08/14/2013 TRAVIS SOLORZANO MD Ot 786.2 COUGH 09/27/2013 KESHIAHAMMAD Mendiola JOINT SUPERVISOR Ot 788.41 URINARY FREQUENCY 06/26/2014 WESTON HERNANDEZ MD Ot 296.80 BIPOLAR DISORDER, UNSPECIFIED 06/26/2014 WESTON HERNADNEZ MD Ot 343.9 CEREBRAL PALSY NOS 06/26/2014 WESTON HERNANDEZ MD Ot 872.10 OPN WND EX EAR NOS-COMPL 06/26/2014 WESTON HERNANDEZ MD Ot E000.8 OTHER EXTERNAL CAUSE STATUS 06/26/2014 WESTON HERNANDEZ MD Ot E928.9 ACCIDENT NOS 12/23/2014 CHARLETTE FLOWERS APRN Ot 845.00 SPRAIN OF ANKLE NOS 12/23/2014 CHARLETTE FLOWERS APRN Ot 959.7 LOWER LEG INJURY NOS 12/23/2014 [...] OSUNA MD Ot M54.9 08/30/2015 MARY ZIEGLER, WESTON Harley Ot N39.0 URINARY TRACT INFECTION, SITE NOT SPECIF 02/11/2016 Ot 788.41 URINARY FREQUENCY 02/11/2016 MAURICIO OSUNA MD Ot 959.7 LOWER LEG INJURY NOS 02/11/2016 MAURICIO OSUNA MD Ot E000.8 OTHER EXTERNAL CAUSE STATUS 02/11/2016 MAURICIO OSUNA MD Ot E004.9 OTHER ACTIVITY INVG CLIMBING, RAPPELLING 02/11/2016 MAURICIO OSUNA MD Ot E849.0 ACCIDENT IN HOME 02/11/2016 MAURICIO OSUNA MD Ot E928.9 ACCIDENT NOS 02/11/2016 MAURICIO OSUNA MD Ot M54.9 DORSALGIA, UNSPECIFIED 02/11/2016 ELIGIO NGO MD Ot B35.0 TINEA BARBAE AND TINEA CAPITIS 02/11/2016 ELIGIO NGO MD Ot F84.0 AUTISTIC DISORDER 02/11/2016 ELIGIO NGO MD Ot G80.9 CEREBRAL PALSY, UNSPECIFIED 02/12/2016 ELIGIO NGO MD Ot B35.0 TINEA BARBAE AND TINEA CAPITIS 02/12/2016 ELIGIO NGO MD Ot F84.0 AUTISTIC DISORDER 02/12/2016 ELIGIO NGO MD Ot G80.9 CEREBRAL PALSY, UNSPECIFIED 03/26/2016 Ot 788.41 URINARY FREQUENCY 03/26/2016 CHARLETTE FLOWERS APRN Ot G40.909 EPILEPSY, UNSP, NOT INTRACTABLE, WITHOUT 03/26/2016 CHARLETTE FLOWERS APRN Ot G80.9 CEREBRAL PALSY, UNSPECIFIED 03/26/2016 FLOWERS, PETER J TANDEM OPERATOR Ot Z79.899 OTHER NURSING HOME (CURRENT) DRUG THERAPY 04/05/2016 CHARLETTE FLOWERS TANDEM OPERATOR Ot G40.909 EPILEPSY, UNSP, NOT INTRACTABLE, WITHOUT 04/05/2016 CHARLETTE FLOWERS TANDEM OPERATOR Ot G80.9 CEREBRAL PALSY, UNSPECIFIED 04/05/2016 CHARLETTE FLOWERS TANDEM OPERATOR Ot Z79.899 OTHER NURSING HOME (CURRENT) DRUG THERAPY 04/09/2016 CHARLETTE FLOWERS TANDEM OPERATOR Ot G40.909 EPILEPSY, UNSP, NOT INTRACTABLE, WITHOUT 04/09/2016 CHARLETTE FLOWERS TANDEM OPERATOR Ot G80.9 CEREBRAL PALSY, UNSPECIFIED 04/09/2016 CHARLETTE FLOWERS TANDEM OPERATOR Ot Z79.899 OTHER [facility] (CURRENT) DRUG THERAPY 05/28/2016 KACY ZIEGLER, JORGE LUIS Donaldson Ot F31.9 BIPOLAR DISORDER, UNSPECIFIED 05/28/2016 KACY ZIEGLER, JORGE LUIS Donaldson Ot G40.909 EPILEPSY, UNSP, NOT INTRACTABLE, WITHOUT 05/28/2016 KACY ZIEGLER, JORGE LUIS Donaldson Ot G80.9 CEREBRAL PALSY, UNSPECIFIED 05/28/2016 KACY ZIEGLER, JORGE LUIS Donaldson Ot R55 SYNCOPE AND COLLAPSE 05/28/2016 KACY ZIEGLER, JORGE LUIS Donaldson Ot Z79.899 OTHER [facility] (CURRENT) DRUG THERAPY 05/31/2016 KACY ZIEGLER, JORGE LUIS Donaldson Ot F31.9 BIPOLAR DISORDER, UNSPECIFIED 05/31/2016 KACY ZIEGLER, JORGE LUIS Donaldson Ot G40.909 EPILEPSY, UNSP, NOT INTRACTABLE, WITHOUT 05/31/2016 KACY ZIEGLER, JORGE LUIS Donaldson Ot G80.9 CEREBRAL PALSY, UNSPECIFIED 05/31/2016 KACY ZIEGLER, JORGE LUIS Donaldson Ot R55 SYNCOPE AND COLLAPSE 05/31/2016 KACY ZIEGLER, JORGE LUIS Donaldson Ot Z79.899 OTHER NURSING HOME (CURRENT) DRUG THERAPY 06/10/2016 RICKEY ZIEGLER, PAPA Forrest Ot G40.309 GEN IDIOPATHIC EPILEPSY, NOT INTRACTABLE 06/15/2016 PAPA LANG MD Ot G40.309 GEN IDIOPATHIC EPILEPSY, NOT INTRACTABLE 07/16/2016 Ot 788.41 URINARY FREQUENCY 07/17/2016 MARY ZIEGLER, WESTON Harley Ot F84.0 AUTISTIC DISORDER 07/17/2016 MARY ZIEGLER, WESTON Harley Ot G40.909 EPILEPSY, UNSP, NOT INTRACTABLE, WITHOUT 07/17/2016 WESTON HERNANDEZ MD Ot G80.9 CEREBRAL PALSY, UNSPECIFIED 07/17/2016 WESTON HERNANDEZ MD Ot J02.9 ACUTE PHARYNGITIS, UNSPECIFIED 07/17/2016 WESTON HERNANDEZ MD Ot N39.0 URINARY TRACT INFECTION, SITE NOT SPECIF 07/17/2016 WESTON HERNANDEZ MD Ot R05 COUGH 07/17/2016 WESTON HERNANDEZ MD Ot Z79.899 OTHER [facility] (CURRENT) DRUG THERAPY 07/17/2016 WESTON HERNANDEZ MD [...] 07/19/2016 WESTON HERNANDEZ MD Ot Z79.899 OTHER [facility] (CURRENT) DRUG THERAPY 07/19/2016 WESTON HERNANDEZ MD Ot Z98.890 OTHER SPECIFIED POSTPROCEDURAL STATES 11/04/2016 PAPA LANG MD Ot R30.0 DYSURIA 11/04/2016 PAPA LANG MD Ot R56.9 UNSPECIFIED CONVULSIONS 11/29/2016 PAPA LANG MD Ot R30.0 DYSURIA 11/29/2016 PAPA LANG MD Ot R56.9 UNSPECIFIED CONVULSIONS 11/30/2016 PAPA LANG MD Ot R30.0 DYSURIA 11/30/2016 PAPA LANG MD Ot R56.9 UNSPECIFIED CONVULSIONS 01/02/2017 WESTON HERNANDEZ MD Ot G40.909 EPILEPSY, UNSP, NOT INTRACTABLE, WITHOUT 01/02/2017 WESTON HERNANDEZ MD Ot G80.9 CEREBRAL PALSY, UNSPECIFIED 01/02/2017 WESTON HERNANDEZ MD Ot Z79.899 OTHER [facility] (CURRENT) DRUG THERAPY 01/04/2017 WESTON HERNANDEZ MD Ot G40.909 EPILEPSY, UNSP, NOT INTRACTABLE, WITHOUT 01/04/2017 WESTON HERNANDEZ MD Ot G80.9 CEREBRAL PALSY, UNSPECIFIED 01/04/2017 WESTON HERNANDEZ MD Ot Z79.899 OTHER [facility] (CURRENT) DRUG THERAPY 06/02/2017 PAPA LANG MD C Ot R10.11 RIGHT UPPER QUADRANT PAIN 06/27/2017 PAPA LANG MD C Ot R10.11 RIGHT UPPER QUADRANT PAIN 06/29/2017 PAPA LANG MD Ot R10.11 RIGHT UPPER QUADRANT PAIN 11/13/2017 DAMI LUOIS Ot F31.9 BIPOLAR DISORDER, UNSPECIFIED 11/13/2017 DAMI LOUIS Ot F84.0 AUTISTIC DISORDER 11/13/2017 DAMI LOUIS Ot G40.909 EPILEPSY, UNSP, NOT INTRACTABLE, WITHOUT 11/13/2017 DAMI LOUIS Ot G80.9 CEREBRAL PALSY, UNSPECIFIED 11/13/2017 DAMI LOUIS Ot J18.9 PNEUMONIA, UNSPECIFIED ORGANISM 11/13/2017 DAMI LOUIS Ot R05 COUGH 11/13/2017 DAMI LOUIS Ot Z88.8 ALLERGY STATUS TO OTH DRUG/MEDS/BIOL SUB 11/15/2017 DAMI LOUIS Ot F31.9 BIPOLAR DISORDER, UNSPECIFIED 11/15/2017 RASHARD LOUISEN Gertrudis Ot F84.0 AUTISTIC DISORDER 11/15/2017 RASHARD LOUISEN L Ot G40.909 EPILEPSY, UNSP, NOT INTRACTABLE, WITHOUT 11/15/2017 DAMI LOUIS Ot G80.9 CEREBRAL PALSY, UNSPECIFIED 11/15/2017 DAMI LOUIS Ot J18.9 PNEUMONIA, UNSPECIFIED ORGANISM 11/15/2017 RASHARD LOUISEN L Ot R05 COUGH 11/15/2017 RASHARD LOUISEN L Ot Z88.8 ALLERGY STATUS TO OTH DRUG/MEDS/BIOL SUB 02/03/2018 WESTON HERNANDEZ MD Ot F29 UNSP PSYCHOSIS NOT DUE TO A SUBSTANCE OR 02/03/2018 WESTON HERNANDEZ MD Ot F31.9 BIPOLAR DISORDER, UNSPECIFIED 02/03/2018 WESTON HERNANDEZ MD Ot F84.0 AUTISTIC DISORDER 02/03/2018 WESTON HERNANDEZ MD Ot F91.1 CONDUCT DISORDER, CHILDHOOD-ONSET TYPE 02/03/2018 WESTON HERNANDEZ MD Ot F91.9 CONDUCT DISORDER, UNSPECIFIED 02/03/2018 WESTON HERNANDEZ MD Ot G40.909 EPILEPSY, UNSP, NOT INTRACTABLE, WITHOUT 02/03/2018 WESTON HERNANDEZ MD Ot G80.9 CEREBRAL PALSY, UNSPECIFIED 02/03/2018 WESTON HERNANDEZ MD Ot Z79.51 F[facility] (CURRENT) USE OF INHALED STERO 02/03/2018 WESTON HERNANDEZ MD Ot Z87.820 PERSONAL HISTORY OF TRAUMATIC BRAIN INJU 02/03/2018 WESTON HERNANDEZ MD Ot Z88.8 ALLERGY STATUS TO OTH DRUG/MEDS/BIOL SUB 02/03/2018 WESTON HERNANDEZ MD Ot Z90.89 ACQUIRED ABSENCE OF OTHER ORGANS 02/06/2018 WESTON HERNANDEZ MD Ot F29 UNSP PSYCHOSIS NOT DUE TO A SUBSTANCE OR 02/06/2018 WESTON HERNANDEZ MD Ot F31.9 BIPOLAR DISORDER, UNSPECIFIED 02/06/2018 WESTON HERNANDEZ MD Ot F84.0 AUTISTIC DISORDER 02/06/2018 WESTON HERNANDEZ MD Ot F91.1 CONDUCT DISORDER, CHILDHOOD-ONSET TYPE 02/06/2018 WESTON HERNANDEZ MD Ot F91.9 CONDUCT DISORDER, UNSPECIFIED 02/06/2018 WESTON HERNANDEZ MD Ot G40.909 EPILEPSY, UNSP, NOT INTRACTABLE, WITHOUT 02/06/2018 WESTON HERNANDEZ MD Ot G80.9 CEREBRAL PALSY, UNSPECIFIED 02/06/2018 WESTON HERNANDEZ MD Ot Z79.51 NURSING HOME (CURRENT) USE OF INHALED STERO 02/06/2018 WESTON HERNANDEZ MD Ot Z87.820 PERSONAL HISTORY OF TRAUMATIC BRAIN INJU 02/06/2018 WESTON HERNANDEZ MD Ot Z88.8 ALLERGY STATUS TO OTH DRUG/MEDS/BIOL SUB 02/06/2018 MARY ZIEGLER, WESTON Harley Ot Z90.89 ACQUIRED ABSENCE OF OTHER ORGANS 03/09/2018 LINDA SY W 296.90 UNSPECIFIED EPISODIC MOOD DISORDER 03/09/2018 LINDA SY W 299.00 AUTISTIC DISORDER, CURRENT OR ACTIVE STATE 03/09/2018 LINDA SY W 343.9 INFANTILE CEREBRAL PALSY, UNSPECIFIED 03/09/2018 SY, LINDA W 345.90 EPILEPSY, UNSPECIFIED, WITHOUT MENTION OF INTRACTABLE EPILEPSY 03/09/2018 YOSSI LINDA W F39 UNSPECIFIED MOOD [AFFECTIVE] DISORDER 03/09/2018 ADITHYA SYHEL W F84.0 AUTISTIC DISORDER 03/09/2018 ADITHYA SYHEL W G40.909 EPILEPSY, UNSP, NOT INTRACTABLE, WITHOUT STATUS EPILEPTICUS 03/09/2018 LINDA SY W G80.9 CEREBRAL PALSY, UNSPECIFIED 03/09/2018 SY, LINDA W 296.90 UNSPECIFIED EPISODIC MOOD DISORDER 03/09/2018 ADITHYA SYHEL W 299.00 AUTISTIC DISORDER, CURRENT OR ACTIVE STATE 03/09/2018 LINDA SY W 343.9 INFANTILE CEREBRAL PALSY, UNSPECIFIED 03/09/2018 SY, LINDA W 345.90 EPILEPSY, UNSPECIFIED, WITHOUT MENTION OF INTRACTABLE EPILEPSY 03/09/2018 YOSSI LINDA W F39 UNSPECIFIED MOOD [AFFECTIVE] DISORDER 03/09/2018 LINDA SY W F84.0 AUTISTIC DISORDER 03/09/2018 ADITHYA SYHEL W G40.909 EPILEPSY, UNSP, NOT INTRACTABLE, WITHOUT STATUS EPILEPTICUS 03/09/2018 LINDA SY W G80.9 CEREBRAL PALSY, UNSPECIFIED 03/09/2018 LINDA SY W V58.69 LONG-TERM (CURRENT) USE OF OTHER MEDICATIONS 03/09/2018 LINDA SY W Z79.899 OTHER [facility] (CURRENT) DRUG THERAPY 03/09/2018 LINDA SY W 296.90 UNSPECIFIED EPISODIC MOOD DISORDER 03/09/2018 LINDA SY W 299.00 AUTISTIC DISORDER, CURRENT OR ACTIVE STATE 03/09/2018 LINDA SY W 343.9 INFANTILE CEREBRAL PALSY, UNSPECIFIED 03/09/2018 LINDA SY W 345.90 03/09/2018 LINDA SY W F39 UNSPECIFIED MOOD [AFFECTIVE] DISORDER 03/09/2018 LINDA SY W F84.0 AUTISTIC DISORDER 03/09/2018 LINDA SY G40.909 EPILEPSY, UNSP, NOT INTRACTABLE, WITHOUT STATUS EPILEPTICUS 03/09/2018 LINDA SY W G80.9 CEREBRAL PALSY, UNSPECIFIED 03/09/2018 LINDA SY W V58.69 03/09/2018 LINDA SY Z79.899 OTHER NURSING HOME (CURRENT) DRUG THERAPY 03/09/2018 LINDA SY W 296.90 UNSPECIFIED EPISODIC MOOD DISORDER 03/09/2018 LINDA SY W 299.00 AUTISTIC DISORDER, CURRENT OR ACTIVE STATE 03/09/2018 LINDA SY W 343.9 INFANTILE CEREBRAL PALSY, UNSPECIFIED 03/09/2018 LINDA SY W 345.90 03/09/2018 LINDA SY W F39 UNSPECIFIED MOOD [AFFECTIVE] DISORDER 03/09/2018 LINDA SY F84.0 AUTISTIC DISORDER 03/09/2018 LINDA SY G40.909 EPILEPSY, UNSP, NOT INTRACTABLE, WITHOUT STATUS EPILEPTICUS 03/09/2018 LINDA SY G80.9 CEREBRAL PALSY, UNSPECIFIED 03/09/2018 LINDA SY W V58.69 03/09/2018 LINDA SY Z79.899 OTHER NURSING HOME (CURRENT) DRUG THERAPY 05/04/2018 Ot M51.27 OTHER INTERVERTEBRAL DISC DISPLACEMENT, 05/04/2018 Ot M51.34 OTHER INTERVERTEBRAL DISC DEGENERATION, 05/04/2018 Ot M51.37 OTHER INTERVERTEBRAL DISC DEGENERATION, 05/04/2018 Ot M99.73 CONN TISS AND DISC STENOS OF INTVRT FORA 05/09/2018 Ot M51.27 OTHER INTERVERTEBRAL DISC DISPLACEMENT, 05/09/2018 Ot M51.34 OTHER INTERVERTEBRAL DISC DEGENERATION, 05/09/2018 Ot M51.37 OTHER INTERVERTEBRAL DISC DEGENERATION, 05/09/2018 Ot M99.73 CONN TISS AND DISC STENOS OF INTVRT FORA 05/12/2018 DAR ZIEGLER, YULI Tolliver Ot G80.9 CEREBRAL PALSY, UNSPECIFIED 05/12/2018 DAR ZIEGLER, YULI Tolliver Ot M22.2X1 PATELLOFEMORAL DISORDERS, RIGHT KNEE 05/12/2018 DAR ZIEGLER, YULI T Ot M22.2X2 PATELLOFEMORAL DISORDERS, LEFT KNEE 05/14/2018 DAR ZIEGLER, YULI T Ot G80.9 CEREBRAL PALSY, UNSPECIFIED 05/14/2018 DAR ZIEGLER, YULI T Ot M22.2X1 PATELLOFEMORAL DISORDERS, RIGHT KNEE 05/14/2018 DAR ZIEGLER, YULI T Ot M22.2X2 PATELLOFEMORAL DISORDERS, LEFT KNEE 05/15/2018 DAR ZIEGLER, YULI Tolliver Ot G80.9 CEREBRAL PALSY, UNSPECIFIED 05/15/2018 DAR ZIEGLER, YULI T Ot M22.2X1 PATELLOFEMORAL DISORDERS, RIGHT KNEE 05/15/2018 DAR ZIEGLER, YULI T Ot M22.2X2 PATELLOFEMORAL DISORDERS, LEFT KNEE 05/17/2018 DAR ZIEGLER, YULI T Ot G80.9 CEREBRAL PALSY, UNSPECIFIED 05/17/2018 DAR ZIEGLER, YULI T Ot M22.2X1 PATELLOFEMORAL DISORDERS, RIGHT KNEE 05/17/2018 DAR ZIEGLER, YULI T Ot M22.2X2 PATELLOFEMORAL DISORDERS, LEFT KNEE 05/19/2018 DAR ZIEGLER, YULI T Ot G80.9 CEREBRAL PALSY, UNSPECIFIED 05/19/2018 DAR ZIEGLER, YULI T Ot M22.2X1 PATELLOFEMORAL DISORDERS, RIGHT KNEE 05/19/2018 DAR ZIEGLER, YULI T Ot M22.2X2 PATELLOFEMORAL DISORDERS, LEFT KNEE 06/02/2018 DAR ZIEGLER, YULI T Ot G80.9 CEREBRAL PALSY, UNSPECIFIED 06/02/2018 DAR ZIEGLRE, YULI T Ot M22.2X1 PATELLOFEMORAL DISORDERS, RIGHT KNEE 06/02/2018 DAR ZIEGLER, YULI T Ot M22.2X2 PATELLOFEMORAL DISORDERS, LEFT KNEE 06/08/2018 DAR ZIEGLER, YULI T Ot G80.9 CEREBRAL PALSY, UNSPECIFIED 06/08/2018 DAR ZIEGLER, YULI T Ot M22.2X1 PATELLOFEMORAL DISORDERS, RIGHT KNEE 06/08/2018 DAR ZIEGLER, YULI T Ot M22.2X2 PATELLOFEMORAL DISORDERS, LEFT KNEE 06/08/2018 DAR ZIEGLER, YULI T Ot G80.9 CEREBRAL PALSY, UNSPECIFIED 06/08/2018 DAR ZIEGLER, YULI T Ot M22.2X1 PATELLOFEMORAL DISORDERS, RIGHT KNEE 06/08/2018 DAR ZIEGLER, YULI Tolliver Ot M22.2X2 PATELLOFEMORAL DISORDERS, LEFT KNEE Procedures There is no data. Results Test [...] INFLUENZA A AND B ANTIGENS BY IA [facility] Comprehensive metabolic panel - 07/16/16 [...] or plasma urea nitrogen/creatinine mass ratio 20 NR Serum or plasma creatinine measurement with calculation of estimated glomerular filtration rate > [facility] Serum or plasma glucose measurement (mass/volume) 118 [...] Blood erythrocyte morphology finding identification NORMAL NRG Comprehensive metabolic panel - 11/03/16 11:40 Serum [...] - 11/03/16 11:45 Urine color determination YELLOW NRG Urine clarity determination CLEAR NRG Urine pH measurement by test strip 6 [...] urinalysis with reflex to culture NO NRG Lipid Panel - 03/09/18 13:54 C/HDL 2.7 3.7-6.7 Cholesterol 173 mg/dL 100-240 HDL 63 mg/dL 30-85 LDL-Calculated 91 mg/dL 0-100 Trig 95 mg/dL 35-160 VLDL 19 mg/dL 0-42 Encounters ACCT No. Visit Date/Time Discharge Status Pt. Type Provider Facility Loc./Unit Complaint [id number] 06/08/2018 14:02:00 06/08/2018 14:24:00 DIS Outpatient YULI DODGE MD [facility] REHAB BILAT PATELLOFEMORAL SYNDROME; CP [id number] 05/12/2018 12:47:00 05/14/2018 00:01:00 [facility] CP [id number] 04/14/2018 16:00:00 04/14/2018 23:59:59 CLS Preadmit FENDODIE DO, CHRIS S [facility] RAD N94.4 PRIMARY DYSMENORRHEA [id number] 02/03/2018 17:15:00 02/03/2018 18:04:00 DIS Emergency WESTON HERNANDEZ MD [facility] ER ACTING OUT [id number] 11/13/2017 11:29:00 11/13/2017 13:38:00 DIS Emergency DAMI LOUIS [facility] ER COUGH [id number] 06/02/2017 07:50:00 06/02/2017 23:59:59 CLS Outpatient PAPA LANG MD [facility] RAD RUQ PAIN R10.11 [id number] 01/02/2017 18:26:00 01/02/2017 20:59:00 DIS Emergency WESTON HERNANDEZ MD [facility] ER SEIZURES [id number] 11/03/2016 11:22:00 11/03/2016 23:59:59 CLS Outpatient PAPA LANG MD [facility] LAB DYSURIA,SEIZURES [id number] 07/16/2016 20:59:00 07/17/2016 00:49:00 DIS Emergency WESTON HERNANDEZ MD [facility] ER SEIZURE [id number] 05/28/2016 13:31:00 05/28/2016 14:19:00 DIS Emergency JORGE LUIS WOODRUFF MD [facility] ER DIZZINESS/POSS REACTION TO FLU SHOT [id number] 05/17/2016 09:16:00 05/17/2016 23:59:59 CLS Outpatient PAPA LANG MD [facility] LAB SEIZURES,GENERALIZED IDIOPATHIC EPILEPSY [id number] 03/26/2016 13:21:00 03/26/2016 15:20:00 DIS Emergency CHARLETTE FLOWERS APRN [facility] ER SEIZURE [id number] 02/11/2016 00:06:00 02/11/2016 00:58:00 DIS Emergency ELIGIO NGO MD [facility] ER [id number] 08/30/2015 20:21:00 08/30/2015 21:35:00 DIS Emergency WESTON HERNANDEZ MD [facility] ER [id number] 06/16/2015 14:58:00 06/16/2015 23:59:59 CLS Outpatient MAURICIO OSUNA MD [facility] RAD [id number] 01/16/2015 15:53:00 01/16/2015 23:59:59 CLS Outpatient ENRRIQUE ZIEGLER, MAURICIO Will [facility] RAD [id number] 12/23/2014 20:18:00 12/23/2014 21:42:00 DIS Emergency CHARLETTE FLOWERS APRN [facility] ER [id number] 06/26/2014 08:16:00 06/26/2014 23:59:59 CLS Emergency WESTON HERNANDEZ MD [facility] ER [id number] 07/01/2013 07:45:00 09/27/2013 00:01:00 DIS Outpatient HAMMAD GALEP [facility] LAB [id number] 08/14/2013 21:35:00 08/14/2013 23:32:00 DIS Emergency TRAVIS SOLORZANO MD [facility] ER [id number] 02/13/2013 14:14:00 03/13/2013 15:30:00 DIS Outpatient ENRIQUE GERBER MD [facility] REHAB [id number] 02/28/2013 12:52:00 03/07/2013 14:52:00 DIS Outpatient ENRIQUE GERBER MD [facility] REHAB [id number] 02/26/2013 13:08:00 03/07/2013 14:48:00 DIS Outpatient ENRIQUE GERBER MD [facility] REHAB [id number] 12/22/2012 18:12:00 12/22/2012 22:40:00 DIS Emergency TRAVIS SOLORZANO MD [facility] ER [id number] 08/04/2018 20:06:00 ACT Emergency PARESH DAY DO [facility] ER L FOOT SWELLING/PAIN [id number] 03/30/2018 16:04:00 Document Registration [id number] 09/28/2013 14:30:00 Document Registration [id number] 03/14/2012 20:12:00 Document Registration [id number] 09/26/2011 20:29:00 Document Registration [id number] 07/02/2011 22:35:00 Document Registration [id number] 04/03/2011 23:56:00 Document Registration [id number] 01/30/2011 17:48:00 Document Registration [id number] 02/18/2010 13:33:00 Document Registration [id number] 02/01/2010 00:05:00 Document Registration [id number] 10/01/2009 07:56:00 Document Registration [id number] 01/17/2015 05:33:16 ACT Document Registration [id number] 03/09/2018 13:52:00 03/09/2018 23:59:00 [id number] 07/22/2017 15:30:00 07/22/2017 23:59:59 CLS Outpatient AMERICO ZIEGLER[facility]
[2018-08-04] MEDS ORDERED: IBUPROFEN TABLET 200 MG TAB PO STA (21:32)
--- NOTE | 2018-08-04 21:56 | Diagnostic Imaging Report ---
INDICATION: Fall, pain COMPARISON: None available TECHNIQUE: 3 radiographs of the left ankle dated 08/04/2018. FINDINGS: No acute fracture or dislocation. No destructive osseous process. The talar dome is unremarkable. Mild soft tissue swelling is identified laterally. No suspicious radiopaque foreign body. IMPRESSION: No acute osseous abnormality with mild soft tissue swelling. Dictated by: Dictated on workstation # [id number]
--- NOTE | 2018-08-04 22:00 | ED Lower Extremity ---
General Chief Complaint: Lower Extremity Stated Complaint: L FOOT SWELLING/PAIN Nursing Triage Note: states that she tripped over a chair on Tue. Left lateral ankle ecchymotic and swollen. Walks on toes. Nursing Sepsis Screen: No Definite Risk History of Present Illness Date Seen by Provider: Aug 04, 2018 Time Seen by Provider: 20:30 Initial Comments 23-year-old female presents for left ankle pain. Her mother reports that she tripped on a chair 3 days ago and has been having pain and swelling since then. She denies any other injuries. No history of left ankle problems. She has cognitive deficits and lives in a [facility]. Onset: other (3 days ago) Pain/Injury Location: left ankle Method of Injury: fell Allergies and Home Medications Allergies Coded Allergies: haloperidol (Unverified Allergy, Mild, 08/04/18) lorazepam (Verified Allergy, Unknown, 07/16/16) Home Medications Albuterol Sulfate 2.5 Mg/3 Ml Vial.neb, 2.5 MG IH Q4H PRN for SHORTNESS OF BREATH Prescribed by: DAMI LOCKHART on 11/13/17 1309 Azithromycin 250 Mg Tablet, 250 MG PO UD TAKE 2 TABLETS TODAY, THEN TAKE 1 TABLET DAILY FOR 4 MORE DAYS Prescribed by: DAMI LOCKHART on 11/13/17 1309 Benzonatate 200 Mg Capsule, 200 MG PO Q8H PRN for COUGH Prescribed by: DAMI LOCKHART on 11/13/17 1311 Cephalexin 500 Mg Tablet, 500 MG PO TID Prescribed by: WESTON HERNANDEZ on 07/17/16 0006 Diazepam 2.5 Mg Kit, 2.5 MG RC [id number] PRN for SEIZURE ACTIVITY Prescribed by: CHARLETTE FLOWERS on 03/26/16 1455 Guanfacine HCl 4 Mg Tab.er.24h, 4 MG PO DAILY, (Reported) Lacosamide 100 Mg Tablet, 300 MG PO BID, (Reported) Magnesium Oxide 500 Mg Capsule, 500 MG PO UD, (Reported) take 1/2 tabe in the morning am and 2 in hs Pyridoxine/Melatonin 1 Tab Tablet, 15 MG PO HS, (Reported) Ranitidine Hcl 150 Mg Tablet, 75 MG PO BID, (Reported) Terbinafine HCl 250 Mg Tablet, 250 MG PO DAILY Prescribed by: ELIGIO FATIMA on 02/11/16 0053 Topiramate 50 Mg Tablet, 25 MG PO BID, (Reported) Trazodone HCl 50 Mg Tablet, 200 MG PO HS, (Reported) Patient Home Medication List Home Medication List Reviewed: Yes Review of Systems Constitutional: no symptoms reported, see HPI Musculoskeletal: see HPI, joint pain (left ankle) All Other Systems Reviewed Negative Unless Noted: Yes Past Yfqeggs-Djvwxy-Shworr Hx Past Med/Social Hx: Reviewed Nursing Past Med/Soc Hx Patient Social History Alcohol Use: Denies Use Recreational Drug Use: No Smoking Status: Never a Smoker Recent Foreign Travel: No Contact w/Someone Who Travel: No Recent Infectious Disease Expo: No Recent Hopitalizations: No (MULTIPLE FOR SEIZURE DISORDER) Physical Abuse: No Sexual Abuse: No Mistreated: No Fear: No Immunizations Up To Date Tetanus Booster (TDap): Less than 5yrs PED Vaccines UTD: Yes Date of Influenza Vaccine: May 28, 2018 Past Medical History Surgeries: Yes (STIMULATOR IMPLANT,THEN DC'D,TEETH EXTRACTED, frontal lobectomy ) Neurological Respiratory: No Cardiac: Yes (MILD MURMUR) Heart Murmur 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 6.0oz. 70.808640gs; 22.65 BMI Method:Stated General Appearance: WD/WN, no apparent distress Ankles: left ankle normal range of motion, left ankle ecchymosis (lateral aspect), left ankle pain (with resisted range of motion), left ankle soft tissue tenderness (laterally), left ankle swelling Neurologic/Psychiatric: no motor/sensory deficits, alert Skin: normal color, warm/dry Progress/Results/Core Measures Results/Orders My Orders Orders - MATTIE MCNULTY Ankle, Left, 3 Views (08/04/18 20:47) Ibuprofen Tablet (Motrin Tablet) (08/04/18 21:32) Vital Signs/I&O 08/04/18 08/04/18 20:12 22:07 Pulse 78 63 Resp 16 16 B/P (MAP) 120/77 (91) 119/63 (81) Pulse Ox 99 Blood Pressure Mean: 91 Diagnostic Imaging Diagonstic Imaging: Xray Plain Films/CT/US/NM/MRI: ankle Comments NAME: KAMALJIT [facility]UCHS [facility] REC#: [id number] PT STATUS: REG ER : 1995 PHYSICIAN: MATTIE MCNULTY ADMIT DATE: 08/04/18/ER Draft Date of Exam:08/04/18 ANKLE, LEFT, 3 VIEWS INDICATION: Fall, pain COMPARISON: None available TECHNIQUE: 3 radiographs of the left ankle dated 08/04/2018. FINDINGS: No acute fracture or dislocation. No destructive osseous process. The talar dome is unremarkable. Mild soft tissue swelling is identified laterally. No suspicious radiopaque foreign body. IMPRESSION: No acute osseous abnormality with mild soft tissue swelling. Dictated on workstation # [id number] Dict: 08/04/18 215 Trans: 08/04/[address] [facility] [place] [id number] Interpreted by: HOLLY OCHOA MD Electronically signed by: Departure Impression Primary Impression: Left ankle sprain Qualified Codes: S93.492A - Sprain of other ligament of left ankle, initial encounter Disposition: 01 HOME, SELF-CARE Condition: Improved Departure-Patient Inst. Decision time for Depature: 21:50 Referrals: LINDA SY MD (PCP/Family) Primary Care Physician Patient Instructions: Ankle Sprain (DC) Add. Discharge Instructions: Ice and elevate left ankle 20 minutes 3-4 times daily. Nain wrap as needed for the next 5-7 days. Advance activity as tolerated. Ibuprofen 600 mg every 8 hours as needed for pain and swelling. Follow-up with primary care if symptoms are not improving or worsen over the next 5-7 days. Return to the emergency department for new, acute health care problems. All discharge instructions reviewed with patient and/or family. Voiced understanding. MATTIE MCNULTY Aug 04, 2018 22:00
[2018-08-04 22:07] VITALS: BP 119/63
== END 2018-08-04 22:06 | disposition home or self-care (01) ==
LOC: EDUNIT# 20:04 → ER 20:06
DX: S93.492A Sprain of other ligament of left ankle, initial encounter (principal); F31.9 Bipolar disorder, unspecified; G40.909 Epilepsy, unspecified, not intractable, without status epilepticus; Z88.8 Allergy status to other drugs, medicaments and biological substances; W01.0XXA Fall on same level from slipping, tripping and stumbling without subsequent striking against object, initial encounter
CPT/HCPCS: 73610